=== PATIENT | female | born 1965 | race Two or more races ===

== ENCOUNTER 2020-07-21 14:48 | Inpatient (IN) | payer OTHER ==
[2020-07-21] VITALS (8 sets, daily range): BP systolic 121–153; BP diastolic 72–100
[~2020-07-21] VITALS: Ht 160 cm; Wt 59.0 kg
--- NOTE | 2020-07-21 15:27 | NUR ---
came to er complaints of right lower quadarnt pain x 3 days denies any nausea or vomiting
--- NOTE | 2020-07-21 15:28 | Emergency Room Report ---
History of Present Illness General Chief Complaint: Abdominal Pain Source: Patient (Melissa Solano) Present Illness HPI 54-year-old female presents to the emergency department complaining of 6 out of 10 in severity right-sided abdominal pain and tenderness especially under the right lower ribs. Patient reports symptoms x3 days. Patient states that she has had similar symptoms in the past that seem to come and go. She reports her pain is worse after eating. She reports sometimes radiates up the epigastric area and to her throat. She denies taking anti-inflammatories such as Motrin, ibuprofen or Advil. Patient reports history of high blood pressure and takes metoprolol. She is also taking Coumadin daily as she had heart surgery performed a year ago and has been on it ever since. She denies bloating. She reports some nausea and one episode of vomiting. Patient denies blood in the vomitus. Patient denies bloody stools or black tarry stools. She denies constipation or diarrhea. She denies cough, hemoptysis,fevers or chills. She denies headache, body aches, chest pain, or shortness of breath. She reports feeling rapid heart beat and elevated BP when experiencing pain. She denies dysuria, hematuria, urinary frequency or urgency. Denies tobacco use. (Melissa Solano) Allergies: Coded Allergies: No Known Allergies (Unverified , 07/21/20) COVID-19 Screening Contact w/high risk pt: No Experienced COVID-19 symptoms?: No COVID-19 Testing performed MEASUREMENT AND VERIFICATION ENGINEER: No (Melissa Solano) Patient History Past Medical History: see triage record Past Surgical History: none Pertinent Family History: none Reviewed Nursing Documentation: PMH: Agreed; PSxH: Agreed (Melissa Solano) Past Medical History: see triage record, other - Cardiac arrhythmia, breast cancer, aortic stenosis Past Surgical History: other - Breast cancer right, aortic valvuloplasty (Jose Alvarado MD) Nursing Documentation-PMH Hx Hypertension: Yes (Melissa Solano) Review of Systems All Other Systems: negative except mentioned in HPI (Melissa Solano) Physical Exam Vital Signs Date Time Temp Pulse Resp B/P (MAP) Pulse Ox O2 Delivery O2 Flow Rate FiO2 07/21/20 15:16 98.2 90 20 150/100 (117) 98 Sp02 EP Interpretation: reviewed, normal General Appearance: no apparent distress, alert, GCS 15, non-toxic, mild distress - grimmacing and holding right upper abdomen. Head: normocephalic, atraumatic Eyes: bilateral eye normal inspection, bilateral eye PERRL ENT: hearing grossly normal, normal voice, other - JVD Neck: full range of motion Respiratory: chest non-tender, lungs clear, normal breath sounds, no wheezing, speaking full sentences Cardiovascular #1: no edema, tachycardia, extra beats Gastrointestinal: normal bowel sounds, soft, non-distended, no guarding, no hernia, tenderness - EPigastric, RUQ and mild RLQ TTP. no rebound Rectal: deferred Genitourinary: normal inspection, no CVA tenderness Musculoskeletal: normal range of motion, gait/station normal, non-tender Neurologic: alert, motor strength/tone normal, oriented x3, sensory intact, responsive, speech normal Psychiatric: judgement/insight normal Skin: no rash, normal color (Melissa Solano) Procedures Critical Care Time Critical Care Time Total Critical Care Time: 35 min bedside evaluation and treatment excludes pr ocedures (EKG). Reason for critical care: Atrial flutter, congestive heart failure, consultation with radiology aide, discussion of treatment plan with patient, diltiazem bolus and diltiazem IV, repeat evaluations Possible complications: hypotension, hypertension, NE, shock, arrhythmias, metabolic acidosis, end organ damage, respiratory failure. Interventions: Full evaluation, consultation with radiology aide, review of past history, repeat evaluations, treatment of atrial flutter and congestive heart failure Course: Patient presented with right upper quadrant pain and a strange feeling in her chest. Evaluation by the PA focused on abdominal symptomatology. The PA presented the fact that the patient had an irregular heartbeat. I evaluated the patient and directed work-up including EKG, INR and chest x-ray. EKG revealed atrial flutter with variable block. Discussion with potential admitting physician led to discussion with the radiology aide to discuss treatment plan. I suggested medication for cardioversion however he requested Cardizem drip and admission for further evaluation of possible clot and stroke risk. Patient initially was refusing admission to the hospital. Long discussion with patient regarding the need for admission and treatment of the atrial flutter. Education of atrial flutter flutter with the patient. Observation of patient after administration of Cardizem bolus and drip revealed improvement. Patient admitt ed to ICU. Consultations: nursing staff, admitting physician, admitting radiology aide, patient, co-treatment with physicians academic support assistant, covering emergency physician Performed by: Dr. Alvarado Tolerated well condition = serious (Jose Alvarado MD) Medical Decision Making PA Attestation Dr. Alvarado Is my supervising Physician whom patient management has been discussed with. (Melissa Solano) Diagnostic Impression: Primary Impression: Atrial flutter by electrocardiogram Additional Impressions: Acute exacerbation of CHF (congestive heart failure) Qualified Codes: I50.9 - Heart failure, unspecified Abdominal pain Qualified Codes: R10.11 - Right upper quadrant pain ER Course 54-year-old female presents to the emergency department complaining of 6 out of 10 in severity right-sided abdominal pain and tenderness especially under the right lower ribs. Patient reports symptoms x3 days. Patient states that she has had similar symptoms in the past that seem to come and go. She reports her pain is worse after eating. She reports sometimes radiates up the epigastric area and to her throat. She denies taking anti-inflammatories such as Motrin, ibuprofen or Advil. Patient reports history of high blood pressure and takes metoprolol. She is also taking Coumadin daily as she had heart surgery performed a year ago and has been on it ever since. She denies bloating. She reports some nausea and one episode of vomiting. Patient denies blood in the vomitus. Patient denies bloody stools or black tarry stools. She denies constipation or diarrhea. She denies cough, hemoptysis,fevers or chills. She denies headache, body aches, chest pain, or shortness of breath. She reports feeling rapid heart beat and elevated BP when experiencing pain. She denies dysuria, hematuria, urinary frequency or urgency. Denies tobacco use. Ddx considered but are not limited to Diverticulitis, acute appendicitis, diarrhea,UC, PUD, GE, pancreatitis, gallstones, NE, PNA, CHF, cardiac arrhythmia. Vital signs: are WNL, pt. is afebrile H&PE are most consistent with non-toxic in appearance, pt. POC is lying on her right side. ORDERS: -CBC, CMP, LIPASE: Unremarkable -UA: Hematuria - Troponin: 0.11 - EKG- A-flutter 113bpm - INR: 2.8 -Abdominal US: unremarkable -CT abd & Pelvis w/o contrast: unremarkable for acute abdomen, noted bibasilar interstitial edema. -- see official report for details. ED INTERVENTIONS: -Pepcid 20mg IV - Lidocaine & Mylanta PO-- pt. reports some reduction in her symptoms. - Cardizem 15mg push and Drip IV - Nitroglycerin - ASA 162 I feel this is a highly complex case requiring supervising physician collaboration and extensive working including EKG/Rhythm strip, Xray/CT/US, Blood/urine lab work, repeat exams while in ED, and administration of IV rate control medications, admission to hospital, and cardiology consultation. Pt. presentation to the ED mandated critical care. Pt. required immediate intervention to assess the risks and attempt to prevent cardiovascular compromise that could lead to . Critical care time is 45 minutes excluding any reportable procedure. Critical care time included initial evaluation, multiple reevaluations, looking at old charts, interpreting laboratory and diagnostic data, discussing case with patient, supervising physician, consultants, and charting. DISPOSITION: at this time pt. will be admitted to Dr. Sow for A-Flutter and CHF exacerbation. Dr. Sow agreed to admit the pt. and to continue pt. care management. Labs Test 07/21/20 15:18 07/21/20 15:30 Urine Color Yellow Urine Appearance Clear Urine pH 6 (4.5-8.0) Urine Specific [place] 1.020 (1.005-1.035) Urine Protein 3+ (NEGATIVE) Urine Glucose (UA) Negative (NEGATIVE) Urine Ketones Negative (NEGATIVE) Urine Blood 5+ (NEGATIVE) Urine Nitrite Negative (NEGATIVE) Urine Bilirubin Negative (NEGATIVE) Urine Urobilinogen Normal MG/DL (0.0-1.0) Urine Leukocyte Esterase Negative (NEGATIVE) Urine RBC 30-40 /HPF (0 - 2) Urine WBC 0-2 /HPF (0 - 2) Urine Squamous Epithelial Cells Few /LPF (NONE/OCC) Urine Bacteria Few /HPF (NONE) White Blood Count 7.3 K/UL (4.8-10.8) Red Blood Count 4.39 M/UL (4.20-5.40) Hemoglobin 13.3 G/DL (12.0-16.0) Hematocrit 39.9 % (37.0-47.0) Mean Corpuscular Volume 91 FL (80-99) Mean Corpuscular Hemoglobin 30.3 PG (27.0-31.0) Mean Corpuscular Hemoglobin Concent 33.4 G/DL (32.0-36.0) Red Cell Distribution Width 15.0 % (11.6-14.8) Platelet Count 217 K/UL (150-450) Mean Platelet Volume 8.7 FL (6.5-10.1) Neutrophils (%) (Auto) 68.1 % (45.0-75.0) Lymphocytes (%) (Auto) 23.8 % (20.0-45.0) Monocytes (%) (Auto) 5.9 % (1.0-10.0) Eosinophils (%) (Auto) 1.5 % (0.0-3.0) Basophils (%) (Auto) 0.7 % (0.0-2.0) Prothrombin Time 28.3 SEC (9.30-11.50) Prothromb Time International Ratio 2.8 (0.9-1.1) Sodium Level 142 MMOL/L (136-145) Potassium Level 4.1 MMOL/L (3.5-5.1) Chloride Level 107 MMOL/L (98-107) Carbon Dioxide Level 25 MMOL/L (21-32) Anion Gap 10 mmol/L (5-15) Blood Urea Nitrogen 19 mg/dL (7-18) Creatinine 0.9 MG/DL (0.55-1.30) Estimat Glomerular Filtration Rate > 60 mL/min (>60) Glucose Level 120 MG/DL (74-106) Calcium Level 8.9 MG/DL (8.5-10.1) Total Bilirubin 0.4 MG/DL (0.2-1.0) Aspartate Amino Transf (AST/SGOT) 29 U/L (15-37) Alanine Aminotransferase (ALT/SGPT) 28 U/L (12-78) Alkaline Phosphatase 124 U/L (46-116) Troponin I 0.110 ng/mL (0.000-0.056) Total Protein 6.8 G/DL (6.4-8.2) Albumin 3.5 G/DL (3.4-5.0) Globulin 3.3 g/dL Albumin/Globulin Ratio 1.1 (1.0-2.7) Lipase 189 U/L (73-393) (Melissa Solano) ER Course Please see above note. Patient with a history of Valvuloplasty in 2018. This was performed at [facility]. 6 months ago she underwent cardioversion which was unsuccessful. Most the time however she is in sinus rhythm. She is diligent about taking warfarin. In the past when she has right upper quadrant pain this is associated with arrhythmia and possibly congestive heart failure. Irregularly irregular heart rate. Decreased breath sounds bilaterally. Cardiac heave without diastolic murmur. JVD. Right upper quadrant tenderness and hepatojugular reflux. Underlying JVD with fraga A waves. Expanded work up. EKG atrial flutter variable block. No acute injury. Chest x-ray with congestive heart failure, cardiomegaly. Elevated troponin treated with aspirin. Discussion with Dr. Sow for cardiology consultation. Discussed with Dr. Babb 1830 Requests cardiphuong drip. improved on cardiazem. Discussed dx and treatment. (Patient transiently wanted to go home but convinced to stay.) Please see critical care note. Patient admitted to ICU. There are no beds at this time. Patient was discussed with covering emergency physician. (Jose Alvarado MD) EKG Diagnostic Results Troponin ordered: Yes When was troponin ordered?: Jul 21, 2020 EKG Time: 18:09 Rate: tachycardiac Rhythm: other - A-Flutter ST Segments: no acute changes ASA given to the pt in ED: Yes PA Scribe Text This Interpretation was scribed by SOCO Solano. (Melissa Solano) Troponin ordered: Yes Rate: tachycardiac ASA given to the pt in ED: Yes (Jose Alvarado MD) Rhythm Strip Diag. Results EP Interpretation: yes Rhythm: no PVC's, other - A flutter with variable block variable rate - tachy (Jose Alvarado MD) Chest X-Ray Diagnostic Results Chest X-Ray Diagnostic Results : Chest X-Ray Ordered: Yes # of Views/Limited/Complete: 1 View Indication: Chest Pain EP Interpretation: Yes PA Xray: Interpretation reviewed, by supervising MD, and agrees with findings. Interpretation: no consolidation, no effusion, no pneumothorax, other - Cardiomegaly and increased interstitial markings bilaterally. Impression: Other - abnormal Electronically Signed by: Melissa Solano PA-C (Melissa Solano) Chest X-Ray Diagnostic Results : Chest X-Ray Ordered: Yes # of Views/Limited/Complete: 1 View Indication: Other EP Interpretation: Yes Interpretation: no effusion, no pneumothorax, other - Congestive heart failure and cardiomegaly Impression: Other Electronically Signed by: Electronically signed by Jose Alvarado MD (Jose Alvarado MD) CT/MRI/US Diagnostic Results CT/MRI/US Diagnostic Results #1: Imaging Test Ordered: Abdominal ultrasound Impression " Impression: Negative for gallstones or dilated bile ducts or other significant abnormality ." --Per official radiology report- Please see report for specific details. CT/MRI/US Diagnostic Results #2: Imaging Test Ordered: CT abdomen and pelvis without contrast. Impression " Impression: Limited assessment of the GI tract, due to lack of enteric contrast administration. No definite acute abdominal or pelvic abnormality. Marked cardiomegaly. Extensive pulmonary basilar interstitial septal thickening and irregular focal opacities bilaterally. Suspect on the basis of pulmonary edema, given the presence of significant cardiomegaly. 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 (Melissa Solano) Last Vital Signs Date Time Temp Pulse Resp B/P (MAP) Pulse Ox O2 Delivery O2 Flow Rate FiO2 07/21/20 15:24 98.2 20 150/100 98 07/21/20 15:24 90 (Melissa Solano) Last Vital Signs Date Time Temp Pulse Resp B/P (MAP) Pulse Ox O2 Delivery O2 Flow Rate FiO2 07/22/20 00:12 98.2 70 18 128/73 99 Room Air Status: improved (Jose Alvarado MD) Disposition: ADMITTED INPATIENT Condition: Serious Signed Out To: Dr. Alvarado (Melissa Solano) Referrals: [facility],REFERRING (PCP) Melissa Solano Jul 21, 2020 15:28 Jose Alvarado MD Jul 21, 2020 18:51
--- NOTE | 2020-07-21 15:48 | NUR ---
ultrasound at bedside
[2020-07-21 16:05] LABS: APPEARANCE,URINE CLEAR; BILIRUBIN, URINE NEGATIVE (NEGATIVE); COLOR,URINE YELLOW; GLUCOSE, URINE (UA) NEGATIVE (NEGATIVE); KETONES,URINE NEGATIVE (NEGATIVE); LEUKOCYTE ESTERASE ,URINE NEGATIVE (NEGATIVE); NITRITE,URINE NEGATIVE (NEGATIVE); PH,URINE 6 (4.5-8.0); PROTEIN,URINE 3+ (NEGATIVE); UROBILINOGEN,URINE NORMAL MG/DL (0.0-1.0)
[2020-07-21 16:05] LABS: BASOPHILS % (AUTO) 0.7 % (0.0-2.0); EOSINOPHILS % (AUTO) 1.5 % (0.0-3.0); HEMATOCRIT 39.9 % (37.0-47.0); HEMOGLOBIN 13.3 G/DL (12.0-16.0); LYMPHOCYTES % (AUTO) 23.8 % (20.0-45.0); MEAN CORPUSCULAR VOLUME 91 FL (80-99); MONOCYTES % (AUTO) 5.9 % (1.0-10.0); NEUTROPHILS % (AUTO) 68.1 % (45.0-75.0); PLATELET COUNT 217 K/UL (150-450); RED BLOOD COUNT 4.39 M/UL (4.20-5.40); WHITE BLOOD COUNT 7.3 K/UL (4.8-10.8)
[2020-07-21 16:15] LABS: ANION GAP 10 mmol/L (5-15); BLOOD UREA NITROGEN 19 mg/dL (7-18); CALCIUM 8.9 MG/DL (8.5-10.1); CARBON DIOXIDE 25 MMOL/L (21-32); CHLORIDE 107 MMOL/L (98-107); CREATININE 0.9 MG/DL (0.55-1.30); POTASSIUM 4.1 MMOL/L (3.5-5.1); SODIUM 142 MMOL/L (136-145)
[2020-07-21] MEDS ORDERED: Lidocaine 2% Visc 15ml soln ORAL ONE (16:15)
[2020-07-21] MEDS ORDERED: Mylanta II UD 30ml ORAL ONE (16:15)
[2020-07-21 16:19] LABS: ALANINE AMINOTRANSFERASE 28 U/L (12-78); ALBUMIN 3.5 G/DL (3.4-5.0); ALBUMIN/GLOBULIN RATIO 1.1 (1.0-2.7); ALKALINE PHOSPHATASE 124 U/L (46-116); ASPARTATE AMINO TRANSFERASE 29 U/L (15-37); BILIRUBIN,TOTAL 0.4 MG/DL (0.2-1.0)
--- NOTE | 2020-07-21 17:14 | Diagnostic Imaging Report ---
Indication: Right lower quadrant pain for 3 days Technique: Spiral acquisitions obtained through the abdomen and pelvis. No oral contrast utilized, per emergency room physician request No IV contrast utilized, per referring physician request.. Multiplanar reconstructions were generated. Total dose length product 301 mGycm. CTDIvol(s) 5 mGy. Dose reduction achieved using automated exposure control Comparison: None Findings: Lack of enteric contrast limits assessment of the GI tract. There are colonic diverticula. No evidence of diverticulitis. The appendix is normal. No small bowel distention. No free or loculated intraperitoneal gas or fluid is evident. The distal esophagus, stomach, duodenum are unremarkable. Lack of IV contrast limits assessment of the solid organs. The liver, gallbladder, bile ducts, pancreas, spleen, adrenals, kidneys are all unremarkable. No renal or ureteral calculi, hydronephrosis, or hydroureter. No pelvic mass or adenopathy. Unremarkable bladder. The included lung bases demonstrate extensive interlobular interstitial septal thickening, as well as irregular focal opacities. The heart is markedly enlarged. 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 This appears normal anteriorly, however. Impression: Limited assessment of the GI tract, due to lack of enteric contrast administration No definite acute abdominal or pelvic abnormality Marked cardiomegaly Extensive pulmonary basilar interstitial septal thickening and irregular focal opacities bilaterally. Suspect on the basis of pulmonary edema, given the presence of significant cardiomegaly. 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
--- NOTE | 2020-07-21 17:23 | Diagnostic Imaging Report ---
Indication: Abdominal pain Technique: Eng-scale and duplex images of the upper abdomen were obtained Comparison: No comparison sonogram. Reference made to subsequently CT scan Findings: Gallbladder is unremarkable, without stones, wall thickening, nor pericholecystic fluid. Sonographic Gómez's sign is negative. Common bile duct measures 2 mm in diameter. No intrahepatic biliary ductal dilatation. Liver demonstrates normal echogenicity, no focal abnormality. Portal vein and hepatic veins are patent. Pancreas is unremarkable. Spleen is unremarkable. Left kidney measures 10.1 cm in length. Right kidney measures 9.9 cm length. Both kidneys demonstrate normal echogenicity. There is no hydronephrosis. Echogenic foci within the left renal sinus are probably artifactual, as no calculi are demonstrated on recent CT scan. Unremarkable inferior vena cava. Non-aneurysmal abdominal aorta . Impression: Negative for gallstones or dilated bile ducts or other significant abnormality
[2020-07-21 18:27] LABS: INR 2.8 (0.9-1.1)
[2020-07-21] MEDS ORDERED: dilTIAZem Premix 125mg/125ml 125 ML IVPB ONE (18:45)
[2020-07-21] MEDS ORDERED: dilTIAZem HCl 25mg/5ml Inj IVP ONE (18:45)
[2020-07-21] MEDS ORDERED: Aspirin Baby 81mg ORAL ONE (18:45)
[2020-07-21] MEDS ORDERED: Nitroglycerin 2% oint pkt TOPIC ONE (18:45)
--- NOTE | 2020-07-21 19:14 | NUR ---
HAND-OFF: Report given to Debby MADISON.
--- NOTE | 2020-07-21 19:15 | NUR ---
ED Nurse Note: pt laying in bed with eyes open. AAOx4, breathing even and unlabored. Pt denies chest pain, denies abdominal pain. Commode provided. Fluids offered and accepted. Heart rhythm currently atrial flutter HR 80s on cardizem drip.
--- NOTE | 2020-07-21 19:54 | NUR ---
ED Nurse Note: Per EDMD titrate cardizem drip to 5mg per hour. Drip titrated up as ordered.
--- NOTE | 2020-07-21 21:08 | NUR ---
ED Nurse Note: pt laying in bed, AAOx4. No complaints from pt at the moment, fluids and sandwhich provided and accepted. Pt aware waiting for bed upstairs.
[2020-07-21] MEDS ORDERED: WARFARIN SODIUM5 MG ORAL (21:20)
[2020-07-21] MEDS ORDERED: WARFARIN SODIU7.5 MG ORAL (21:20)
[2020-07-21] MEDS ORDERED: METOPROLOL TART50 M1 ORAL (21:21)
[2020-07-21] MEDS ORDERED: Acetaminophen 500mg (ES) tab ORAL ONE (21:27)
--- NOTE | 2020-07-21 22:22 | NUR ---
ED Nurse Note: Pt resting in bed, no complaints from pt at the moment. Warm blankets and pillows provided.
[2020-07-22] VITALS (12 sets, daily range): BP systolic 114–142; BP diastolic 73–90
--- NOTE | 2020-07-22 00:40 | NUR ---
ED Nurse Note: Called MD Sow for admission orders. Per MD order 2DEcho in AM, BNP CBC Mag Phosphorus daily, Heparin drip pharmacy to dose. Hold home medications for now. MD aware pt on cardizem drip at 5mg/hr and said to keep at current rate. stated he will contact cardiology consult. MD aware no ICU beds at the moment, pt still in ED.
[2020-07-22] MEDS ORDERED: Heparin1,000 units/500ml Premix(Conc:2 units/ml) IV ONE (00:45)
--- NOTE | 2020-07-22 00:54 | NUR ---
ED Nurse Note: Called Junito Lima aware of heparin pharmacy to dose order.
--- NOTE | 2020-07-22 01:00 | NUR ---
ED Nurse Note: PTT sent to lab
--- NOTE | 2020-07-22 01:11 | NUR ---
ED Nurse Note: Jyoti from [facility] called. Said need for PTT now, repeat PTT in 6 hours.
[2020-07-22] MEDS ORDERED: HYDROcodone/Acetamin 5/325 tab ORAL ONE ×2 (01:15→07:15)
[2020-07-22] MEDS ORDERED: Heparin 25,000u/D5W 500ml 500 ML IV SCH ×4 (01:15→17:45)
[2020-07-22] MEDS ORDERED: HYDROcodone/Acetamin 5/325 tab ONE ×2 (01:18→07:02)
[2020-07-22] MEDS ORDERED: dilTIAZem Premix 125mg/125ml 125 ML IVPB ONE (01:45)
--- NOTE | 2020-07-22 02:11 | NUR ---
ED Nurse Note: [facility] called for striker bed.
--- NOTE | 2020-07-22 02:25 | NUR ---
ED Nurse Note: [facility] called, spke with Derick. Ptt 33 reported, Per Derick keep current rate. Repeat ptt at 0800.
--- NOTE | 2020-07-22 02:58 | NUR ---
ED Nurse Note: pt laying in bed, no complaints from pt at the moment. AAOx4, vital signs stable.
--- NOTE | 2020-07-22 04:16 | NUR ---
ED Nurse Note: AM lab collected and sent to lab
[2020-07-22 04:27] LABS: BASOPHILS % (AUTO) 0.7 % (0.0-2.0); EOSINOPHILS % (AUTO) 1.3 % (0.0-3.0); HEMATOCRIT 38.8 % (37.0-47.0); HEMOGLOBIN 12.3 G/DL (12.0-16.0); LYMPHOCYTES % (AUTO) 19.7 % (20.0-45.0); MEAN CORPUSCULAR VOLUME 91 FL (80-99); MONOCYTES % (AUTO) 6.8 % (1.0-10.0); NEUTROPHILS % (AUTO) 71.5 % (45.0-75.0); PLATELET COUNT 185 K/UL (150-450); RED BLOOD COUNT 4.27 M/UL (4.20-5.40); RED CELL DISTRIBUTION WIDTH 14.5 % (11.6-14.8); WHITE BLOOD COUNT 8.8 K/UL (4.8-10.8)
[2020-07-22 04:44] LABS: ANION GAP 7 mmol/L (5-15); BLOOD UREA NITROGEN 15 mg/dL (7-18); CALCIUM 8.1 MG/DL (8.5-10.1); CARBON DIOXIDE 27 MMOL/L (21-32); CHLORIDE 106 MMOL/L (98-107); CREATININE 0.7 MG/DL (0.55-1.30); POTASSIUM 3.3 MMOL/L (3.5-5.1); SODIUM 140 MMOL/L (136-145)
[2020-07-22 04:56] LABS: PHOSPHORUS 3.4 MG/DL (2.5-4.9)
--- NOTE | 2020-07-22 05:11 | NUR ---
ED Nurse Note: pt laying in bed with eyes closed, arousable when name is called. No complaints from pt at the moment. VSS.
--- NOTE | 2020-07-22 06:37 | NUR ---
ED Nurse Note: per EDMD stop cardizem drip, will change to PO cardizem. EDMD said will text MD Sow to notify of change.
[2020-07-22] MEDS ORDERED: dilTIAZem HCl 30mg tab ORAL ONE (06:45)
--- NOTE | 2020-07-22 06:59 | NUR ---
ED Nurse Note: Per EDMD give [place] 5/325 once PO stat.
--- NOTE | 2020-07-22 07:29 | NUR ---
HAND-OFF: Report given to LOS Ortiz.
--- NOTE | 2020-07-22 07:30 | NUR ---
ED Nurse Note: Received report from Debby MADISON. Pt AAOX4, verbally responsive. No SOB, on room air. On Heparin drip, tolerating well. Dudley provided for comfort. All needs attended. Will cont to monitor.
--- NOTE | 2020-07-22 08:08 | NUR ---
ED Nurse Note: PTT sent to lab.
--- NOTE | 2020-07-22 09:18 | NUR ---
ED Nurse Note: 2decho at bedside.
--- NOTE | 2020-07-22 09:40 | NUR ---
REPORT GIVEN TO NELL RN AT TELE . PATIENT WILL BE TRANSFERD TO ROOM 221-1 VIA ACLS PROTOCOL
--- NOTE | 2020-07-22 09:42 | History & Physical ---
History of Present Illness General Reason for Hospitalization: Abdominal Pain Present Illness HPI 54-year-old female with past medical history of arrhythmia, breast cancer, and aortic stenosis, who presented to the ED complaining of 6/10 in severity right- sided abdominal pain and tenderness especially on the right lower ribs x3 days. Patient states that she had similar symptoms in the past that seem to come and go. She reports her pain is worse with after eating. She reports sometimes the pain radiates up to epigastric area and to her throat. She takes Coumadin daily as she had heart surgery performed a year ago and she has been on it. She denies cough, hemoptysis, fevers, chills, headache, body aches, chest pain, or shortness of breath. She does report palpitations. Her initial CBC, CMP, and lipase were unremarkable. Her urinalysis was remarkable for hematuria. Her troponin was 0.11. Her EKG revealed atrial flutter. Her INR 2.8. Her abdominal ultrasound was unremarkable. Her CT of abdomen and pelvis without contrast was unremarkable for acute abdomen. However was noted that she had bibasilar interstitial edema. She was given Pepcid, lidocaine and Mylanta, Cardizem, nitroglycerin, and aspirin in the ER and was admitted to the hospital for further management and observation. PAST MEDICAL HISTORY: CHF, arrhythmia, history of valvuloplasty in 2018, cardioversion 6 months ago which was unsuccessful MEDICATIONS: Metoprolol, warfarin ALLERGIES: No known allergies FAMILY HISTORY: Unknown PERSONAL/SOCIAL HISTORY: Lives at home REVIEW OF SYSTEMS: Negative except mentioned in HPI Allergies: Coded Allergies: No Known Allergies (Unverified , 07/21/20) COVID-19 Screening Contact w/high risk pt: No Experienced COVID-19 symptoms?: No Medication History Scheduled Metoprolol Tartrate* (Metoprolol Tartrate*), 50 MG ORAL EVERY 12 HOURS, (Reported) Warfarin Sod* (Warfarin Sod*), 5 MG ORAL DAILY Sun, Tues, Thurs, Fri, Sat, (Reported) Warfarin Sod* (Warfarin Sod*), 7.5 MG ORAL Daily Monday and Monday, (Reported) Patient History Healthcare decision maker Resuscitation status Advanced Directive on File Review of Systems Review of Symptoms General ROS: no weight loss or fever Psychological ROS: no depression or mood changes, no memory loss Ophthalmic ROS: no visual changes or eye irritation ENT ROS: no nasal congestion, hearing loss, dizziness Allergy and Immunology ROS: no allergic symptoms or urticaria Hematological and Lymphatic ROS: no swollen glands, unusual bleeding or bruising Endocrine ROS: no polyuria, polydipsia, weight changes, temperature intolerance Respiratory ROS: no cough, shortness of breath, or wheezing Cardiovascular ROS: no chest pain or dyspnea on exertion Gastrointestinal ROS: + abd pain Musculoskeletal ROS: no myalgias or arthralgias Neurological ROS: no TIA or stroke symptoms Dermatological ROS: no new or changing skin lesions, rashes or pruritis Physical Exam Physical Exam General appearance: alert, cooperative, no distress, appears stated age Head: Normocephalic, without obvious abnormality, atraumatic Eyes: conjunctivae/corneas clear. PERRL, EOM's intact. Fundi benign Throat: Lips, mucosa, and tongue normal. Teeth and gums normal Neck: supple, symmetrical, trachea midline, no adenopathy, thyroid: not enlarged, symmetric, no tenderness/mass/nodules, no carotid bruit and no JVD Lungs: clear to auscultation bilaterally Heart: tachycardic S1, S2 normal, no murmur, click, rub or gallop Abdomen: soft, non-tender. Bowel sounds normal. No masses, no organomegaly Extremities: extremities normal, atraumatic, no cyanosis or edema Pulses: 2+ and symmetric Skin: Skin color, texture, turgor normal. No rashes or lesions Neurologic: Grossly normal Last 24 Hour Vital Signs Date Time Temp Pulse Resp B/P (MAP) Pulse Ox O2 Delivery O2 Flow Rate FiO2 07/22/20 09:16 98.2 07/22/20 07:30 98.2 74 17 114/77 98 Room Air 07/22/20 06:43 68 129/76 07/22/20 06:26 98.2 68 16 129/76 100 Room Air 07/22/20 05:11 98.2 69 16 127/78 100 Room Air 07/22/20 04:10 98.2 68 16 124/76 100 Room Air 07/22/20 03:15 98.2 71 16 133/86 100 Room Air 07/22/20 02:02 98.2 69 18 142/90 99 Room Air 07/22/20 01:49 98.2 07/22/20 01:10 98.2 68 18 130/75 99 Room Air 07/22/20 00:12 98.2 70 18 128/73 99 Room Air 07/21/20 22:22 98.2 68 18 129/72 99 Room Air 07/21/20 21:07 98.2 73 18 122/98 99 Room Air 07/21/20 20:34 98.2 73 18 139/90 99 Room Air 07/21/20 20:01 98.2 81 18 146/92 99 Room Air 07/21/20 19:54 98.2 83 18 153/87 99 Room Air 07/21/20 19:15 98.2 81 18 150/86 99 Room Air 07/21/20 18:50 132/88 07/21/20 18:49 115 132/89 07/21/20 17:41 98.2 76 18 142/92 99 Room Air 07/21/20 15:24 98.2 20 150/100 98 07/21/20 15:24 90 20 07/21/20 15:16 98.2 90 20 150/100 (117) 98 Intake and Output 07/21/20 07/22/20 19:00 07:00 Intake Total 0 ml 320 ml Balance 0 ml 320 ml Intake Oral 0 ml 320 ml # Voids 6 Laboratory Tests Test 07/21/20 15:18 07/21/20 15:30 07/22/20 00:35 07/22/20 01:00 Urine Color Yellow Urine Appearance Clear Urine pH 6 (4.5-8.0) Urine Specific [place] 1.020 (1.005-1.035) Urine Protein 3+ (NEGATIVE) H Urine Glucose (UA) Negative (NEGATIVE) Urine Ketones Negative (NEGATIVE) Urine Blood 5+ (NEGATIVE) H Urine Nitrite Negative (NEGATIVE) Urine Bilirubin Negative (NEGATIVE) Urine Urobilinogen Normal MG/DL (0.0-1.0) Urine Leukocyte Esterase Negative (NEGATIVE) Urine RBC 30-40 /HPF (0 - 2) H Urine WBC 0-2 /HPF (0 - 2) Urine Squamous Epithelial Cells Few /LPF (NONE/OCC) Urine Bacteria Few /HPF (NONE) White Blood Count 7.3 K/UL (4.8-10.8) Red Blood Count 4.39 M/UL (4.20-5.40) Hemoglobin 13.3 G/DL (12.0-16.0) Hematocrit 39.9 % (37.0-47.0) Mean Corpuscular Volume 91 FL (80-99) Mean Corpuscular Hemoglobin 30.3 PG (27.0-31.0) Mean Corpuscular Hemoglobin Concent 33.4 G/DL (32.0-36.0) Red Cell Distribution Width 15.0 % (11.6-14.8) H Platelet Count 217 K/UL (150-450) Mean Platelet Volume 8.7 FL (6.5-10.1) Neutrophils (%) (Auto) 68.1 % (45.0-75.0) Lymphocytes (%) (Auto) 23.8 % (20.0-45.0) Monocytes (%) (Auto) 5.9 % (1.0-10.0) Eosinophils (%) (Auto) 1.5 % (0.0-3.0) Basophils (%) (Auto) 0.7 % (0.0-2.0) Prothrombin Time 28.3 SEC (9.30-11.50) H Prothromb Time International Ratio 2.8 (0.9-1.1) H Sodium Level 142 MMOL/L (136-145) Potassium Level 4.1 MMOL/L (3.5-5.1) Chloride Level 107 MMOL/L (98-107) Carbon Dioxide Level 25 MMOL/L (21-32) Anion Gap 10 mmol/L (5-15) Blood Urea Nitrogen 19 mg/dL (7-18) H Creatinine 0.9 MG/DL (0.55-1.30) Estimat Glomerular Filtration Rate > 60 mL/min (>60) Glucose Level 120 MG/DL (74-106) H Calcium Level 8.9 MG/DL (8.5-10.1) Total Bilirubin 0.4 MG/DL (0.2-1.0) Aspartate Amino Transf (AST/SGOT) 29 U/L (15-37) Alanine Aminotransferase (ALT/SGPT) 28 U/L (12-78) Alkaline Phosphatase 124 U/L (46-116) H Troponin I 0.110 ng/mL (0.000-0.056) 0.130 ng/mL (0.000-0.056) Total Protein 6.8 G/DL (6.4-8.2) Albumin 3.5 G/DL (3.4-5.0) Globulin 3.3 g/dL Albumin/Globulin Ratio 1.1 (1.0-2.7) Lipase 189 U/L (73-393) Activated Partial Thromboplast Time 33 SEC (23-33) Test 07/22/20 04:10 07/22/20 08:08 White Blood Count 8.8 K/UL (4.8-10.8) Red Blood Count 4.27 M/UL (4.20-5.40) Hemoglobin 12.3 G/DL (12.0-16.0) Hematocrit 38.8 % (37.0-47.0) Mean Corpuscular Volume 91 FL (80-99) Mean Corpuscular Hemoglobin 28.7 PG (27.0-31.0) Mean Corpuscular Hemoglobin Concent 31.6 G/DL (32.0-36.0) L Red Cell Distribution Width 14.5 % (11.6-14.8) Platelet Count 185 K/UL (150-450) Mean Platelet Volume 8.1 FL (6.5-10.1) Neutrophils (%) (Auto) 71.5 % (45.0-75.0) Lymphocytes (%) (Auto) 19.7 % (20.0-45.0) L Monocytes (%) (Auto) 6.8 % (1.0-10.0) Eosinophils (%) (Auto) 1.3 % (0.0-3.0) Basophils (%) (Auto) 0.7 % (0.0-2.0) Sodium Level 140 MMOL/L (136-145) Potassium Level 3.3 MMOL/L (3.5-5.1) L Chloride Level 106 MMOL/L (98-107) Carbon Dioxide Level 27 MMOL/L (21-32) Anion Gap 7 mmol/L (5-15) Blood Urea Nitrogen 15 mg/dL (7-18) Creatinine 0.7 MG/DL (0.55-1.30) Estimat Glomerular Filtration Rate > 60 mL/min (>60) Glucose Level 116 MG/DL (74-106) H Calcium Level 8.1 MG/DL (8.5-10.1) L Phosphorus Level 3.4 MG/DL (2.5-4.9) Magnesium Level 1.8 MG/DL (1.8-2.4) Pro-B-Type Natriuretic Peptide 3125 pg/mL (0-125) H Activated Partial Thromboplast Time > 150 SEC (23-33) *H Height (Feet): 5 Height (Inches): 3.00 Weight (Pounds): 130 Medications Current Medications Medications (Trade) Dose Ordered Sig/Damien Route PRN Reason Start Time Stop Time Status Last Admin Dose Admin Acetaminophen (Tylenol) 650 mg Q4H PRN ORAL Pain Scale (3-5) 07/22/20 05:45 08/21/20 05:44 Diltiazem HCl 125 ml @ 5 mls/hr ONCE ONCE IVPB 07/22/20 01:45 07/23/20 02:44 07/22/20 01:55 Heparin Sodium/ Dextrose 500 ml @ 15.331 mls/ hr ADJUST PER PROTOCOL IV 07/22/20 10:40 08/21/20 10:39 Ondansetron HCl (Zofran) 4 mg Q6H PRN IVP Nausea & Vomiting 07/22/20 05:45 08/21/20 05:44 07/22/20 06:50 Assessment/Plan Diagnosis [place] I: #Atrial flutter #MONY #NSTEMI #hisotory of aortic valve surgery #HTN #h/o breast cancer #hypokalemia - admit to tele - cardizem drip - meto 50 BID - switch to ral cardizem per cardiology - cardiology eval - echo - heparin drip - monitor lytes - replete lytes prn [facility] Hospital declaration I spent 70 minutes on this patient's case, and 35minutes was dedicated to cou nseling and/or care coordination. MIPS ([employer]-based Incentive Payment System) Applicable CPT: 75344, 27110 CHECK ALL THAT ARE MET: Measure #5 (CHF): All ages. Prescribe PRIMO/ARB upon discharge for patients with left ventricular systolic dysfunction. If not, the reason is clearly documented in the medical chart. Measure #8 (CHF): All ages. Prescribe a beta olegario upon discharge for patients with left ventricular systolic dysfunction. If not, the reason is clearly documented in the medical chart. Measure #47 Advance care plan or surrogate decision maker documented in the medical record. Measure #130 The provider has documented, updated, or reviewed the patients current medication list and has documented it in the patients note. Measure #374 (All): Send report to referring provider. Measure #407(Sepsis due to MSSA bacteremia): Age 18+ Patient treated with a beta-lactam antibiotic (Nafcillin, Oxacillin or Cefazolin) as definitive therapy. MEDICAL COMPLEXITY High complexity medical decision making (need 2/3 categories) Problem - need 4 points Acute/new problem with new plan for workup (4 points, 1 max) Acute/new problem without additional workup (3 points, 1 max) Unstable chronic problem actively being managed (2 point each, 2 max) Stable chronic problem actively being managed (1 point each, 2 max) Self-limited/transient process (constipation, muscle ache, etc) (1 point each, 2 max) Data - need 4 points Reviewed labs/imaging studies (1 points, 2 max) Independent review of imaging (EKG, xrays, etc) (2 points, 2 max) Discussed case with consult/other MD/RN (2 points, 2 max) High Risk - qualify if have one of the following: Severe exacerbation of acute problem, acute mental status change, IV narcotics, monitoring drug levels (vancomycin, INR, tacrolimus etc) Luis Fernando Sow M.D. Jul 22, 2020 09:42
--- NOTE | 2020-07-22 10:40 | NUR ---
NURSE NOTES: Patient admitted to rm 221-2. Transferred to bed. VS taken and recorded. Belongings accounted for. No skin issues noted. IV lines on right AC g20 and left wrist g20 intact and patent. A and O x 4, pleasant disposition. 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 Seen by Ovidio WAN. Seen by Dr Sow, orders noted and carried out. Oriented to room and call light. HOB elevated. Bed locked in low position. Call light within reach. Will continue plan of care.
--- NOTE | 2020-07-22 11:51 | Consultation ---
Consult Note Consult Note DATE OF CONSULTATION: 07/22/2020 CONSULTING PHYSICIAN: Ramon Myers MD. ATTENDING PHYSICIAN: Dr. Sow REASON FOR CONSULTATION: Extensive pulmonary basilar interstitial septal thickening and irregular focal opacities bilaterally HISTORY OF PRESENT ILLNESS: This is a 54-year-old female with past medical history of arrhythmia, breast cancer, and aortic stenosis, who presented to the ED complaining of 6/10 in severity right-sided abdominal pain and tenderness especially on the right lower ribs x3 days. Patient states that she had similar symptoms in the past that seem to come and go. She reports her pain is worse with after eating. She reports sometimes the pain radiates up to epigastric area and to her throat. She takes Coumadin daily as she had heart surgery performed a year ago and she has been on it. She denies cough, hemoptysis, fevers, chills, headache, body aches, chest pain, or shortness of breath. She does report palpitations. Her initial CBC, CMP, and lipase were unremarkable. Her urinalysis was remarkable for hematuria. Her troponin was 0.11. Her EKG revealed atrial flutter. Her INR 2.8. Her abdominal ultrasound was unremarkable. Her CT of abdomen and pelvis without contrast was unremarkable for acute abdomen. However was noted that she had bibasilar interstitial edema. She was given Pepcid, lidocaine and Mylanta, Cardizem, nitroglycerin, and aspirin in the ER and was admitted to the hospital for further management and observation. PAST MEDICAL HISTORY: CHF, arrhythmia, history of valvuloplasty in 2018, cardioversion 6 months ago which was unsuccessful MEDICATIONS: Metoprolol, warfarin ALLERGIES: No known allergies FAMILY HISTORY: Unknown PERSONAL/SOCIAL HISTORY: Lives at home REVIEW OF SYSTEMS: Negative except mentioned in HPI PHYSICAL EXAMINATION: VITAL SIGNS: Blood pressure 128/77, heart rate 77, respiratory rate 19, weight 59 kg, height 160. General: No apparent distress, alert, normal work of breathing on room air HEENT: Head exam reveals that the head is normocephalic, atraumatic without deformity or unusual swelling. Pupils are PERRLA. JVD, patient wearing facemask CHEST AND LUNGS: Decreased breath sounds noted CARDIOVASCULAR: Reveals normal S1, S2 without murmurs, rubs, or clicks. ABDOMEN: Right upper quadrant tenderness to palpation, no guarding, no rebound tenderness RECTAL: Deferred. MUSCULOSKELETAL: There is no tenderness to palpation. Range of motion is normal. NEUROLOGICAL: Alert and oriented x3 , nonfocal LABORATORY DATA: Laboratory testing shows grossly unremarkable. Chemistries show potassium 3.3, glucose 116, calcium 8.1, BNP 3125, troponin 0 0.13 Urinalysis shows 3+ protein, 5+ blood Coagulation panel shows PT 28.3, INR 2.8, APTT > 150 Assessment/Plan 1. Pulmonary basilar interstitial septal thickening and irregular focal opacities - Suspect pulmonary fibrosis. - Continue oxygen as needed - Recommend outpatient workup for this condition 2. DVT ppx The care for this patient was discussed with my supervising physician. Time spent for this case was approximately 31 minutes. Ovidio Sidhu Jul 22, 2020 11:51
--- NOTE | 2020-07-22 12:35 | Consultation ---
History of Present Illness General Date patient seen: Jul 22, 2020 Reason for Hospitalization: Abdominal Pain Present Illness HPI 54-year-old female presents to the emergency department complaining of 6 out of 10 in severity right-sided abdominal pain and tenderness especially under the right lower ribs. Patient reports symptoms x3 days. Patient states that she has had similar symptoms in the past that seem to come and go. She reports her pain is worse after eating. She reports sometimes radiates up the epigastric area and to her throat. She denies taking anti-inflammatories such as Motrin, ibuprofen or Advil. Patient reports history of high blood pressure and takes metoprolol. She is also taking Coumadin daily as she had heart surgery performed a year ago and has been on it ever since. She denies bloating. She reports some nausea and one episode of vomiting. Patient denies blood in the vomitus. Patient denies bloody stools or black tarry stools. She denies constipation or diarrhea. She denies cough, hemoptysis,fevers or chills. She denies headache, body aches, chest pain, or shortness of breath. She reports feeling rapid heart beat and elevated BP when experiencing pain. She denies dysuria, hematuria, urinary frequency or urgency. Denies tobacco use. surgery called to evaluate and assist with care trop elevated on gtt Allergies: Coded Allergies: No Known Allergies (Unverified , 07/21/20) COVID-19 Screening Contact w/high risk pt: No Experienced COVID-19 symptoms?: No Medication History Scheduled Metoprolol Tartrate* (Metoprolol Tartrate*), 50 MG ORAL EVERY 12 HOURS, (Reported) Warfarin Sod* (Warfarin Sod*), 5 MG ORAL DAILY Sun, , , Fri, Sat, (Reported) Warfarin Sod* (Warfarin Sod*), 7.5 MG ORAL Daily Monday and Monday, (Reported) Patient History History Provided By: Patient, Medical Record, PMD Healthcare decision maker Resuscitation status Advanced Directive on File Past Medical/Surgical History Past Medical/Surgical History: (1) Abdominal pain (2) Acute exacerbation of CHF (congestive heart failure) (3) Atrial flutter by electrocardiogram Review of Systems Review of Symptoms General ROS: no weight loss or fever Psychological ROS: no depression or mood changes, no memory loss Ophthalmic ROS: no visual changes or eye irritation ENT ROS: no nasal congestion, hearing loss, dizziness Allergy and Immunology ROS: no allergic symptoms or urticaria Hematological and Lymphatic ROS: no swollen glands, unusual bleeding or bruising Endocrine ROS: no polyuria, polydipsia, weight changes, temperature intolerance Respiratory ROS: no cough, shortness of breath, or wheezing Cardiovascular ROS: no chest pain or dyspnea on exertion Gastrointestinal ROS: ++ abdominal pain, bright red blood in stool. Musculoskeletal ROS: no myalgias or arthralgias Neurological ROS: no TIA or stroke symptoms Dermatological ROS: no new or changing skin lesions, rashes or pruritis Physical Exam Physical Exam General appearance: alert, cooperative, no distress, appears stated age Head: Normocephalic, without obvious abnormality, atraumatic Eyes: conjunctivae/corneas clear. PERRL, EOM's intact. Fundi benign Throat: Lips, mucosa, and tongue normal. Teeth and gums normal Neck: supple, symmetrical, trachea midline, no adenopathy, thyroid: not enlarged, symmetric, no tenderness/mass/nodules, no carotid bruit and no JVD Lungs: clear to auscultation bilaterally Heart: regular rate and rhythm, S1, S2 normal, no murmur, click, rub or gallop Abdomen: soft, non-tender. Bowel sounds normal. No masses, no organomegaly Extremities: extremities normal, atraumatic, no cyanosis or edema Pulses: 2+ and symmetric Skin: Skin color, texture, turgor normal. No rashes or lesions Neurologic: Grossly normal Last 24 Hour Vital Signs Date Time Temp Pulse Resp B/P (MAP) Pulse Ox O2 Delivery O2 Flow Rate FiO2 07/22/20 10:25 98.0 77 19 128/77 100 Room Air 07/22/20 09:42 98.0 86 16 130/80 98 Room Air 07/22/20 09:16 98.2 07/22/20 07:30 98.2 74 17 114/77 98 Room Air 07/22/20 06:43 68 129/76 07/22/20 06:26 98.2 68 16 129/76 100 Room Air 07/22/20 05:11 98.2 69 16 127/78 100 Room Air 07/22/20 04:10 98.2 68 16 124/76 100 Room Air 07/22/20 03:15 98.2 71 16 133/86 100 Room Air 07/22/20 02:02 98.2 69 18 142/90 99 Room Air 07/22/20 01:49 98.2 07/22/20 01:10 98.2 68 18 130/75 99 Room Air 07/22/20 00:12 98.2 70 18 128/73 99 Room Air 07/21/20 22:22 98.2 68 18 129/72 99 Room Air 07/21/20 21:07 98.2 73 18 122/98 99 Room Air 07/21/20 20:34 98.2 73 18 139/90 99 Room Air 07/21/20 20:01 98.2 81 18 146/92 99 Room Air 07/21/20 19:54 98.2 83 18 153/87 99 Room Air 07/21/20 19:15 98.2 81 18 150/86 99 Room Air 07/21/20 18:50 132/88 07/21/20 18:49 115 132/89 07/21/20 17:41 98.2 76 18 142/92 99 Room Air 07/21/20 15:24 98.2 20 150/100 98 07/21/20 15:24 90 20 07/21/20 15:16 98.2 90 20 150/100 (117) 98 Intake and Output 07/21/20 07/22/20 19:00 07:00 Intake Total 0 ml 320 ml Balance 0 ml 320 ml Intake Oral 0 ml 320 ml # Voids 6 Laboratory Tests Test 07/21/20 15:18 07/21/20 15:30 07/22/20 00:35 07/22/20 01:00 Urine Color Yellow Urine Appearance Clear Urine pH 6 (4.5-8.0) Urine Specific [place] 1.020 (1.005-1.035) Urine Protein 3+ (NEGATIVE) H Urine Glucose (UA) Negative (NEGATIVE) Urine Ketones Negative (NEGATIVE) Urine Blood 5+ (NEGATIVE) H Urine Nitrite Negative (NEGATIVE) Urine Bilirubin Negative (NEGATIVE) Urine Urobilinogen Normal MG/DL (0.0-1.0) Urine Leukocyte Esterase Negative (NEGATIVE) Urine RBC 30-40 /HPF (0 - 2) H Urine WBC 0-2 /HPF (0 - 2) Urine Squamous Epithelial Cells Few /LPF (NONE/OCC) Urine Bacteria Few /HPF (NONE) White Blood Count 7.3 K/UL (4.8-10.8) Red Blood Count 4.39 M/UL (4.20-5.40) Hemoglobin 13.3 G/DL (12.0-16.0) Hematocrit 39.9 % (37.0-47.0) Mean Corpuscular Volume 91 FL (80-99) Mean Corpuscular Hemoglobin 30.3 PG (27.0-31.0) Mean Corpuscular Hemoglobin Concent 33.4 G/DL (32.0-36.0) Red Cell Distribution Width 15.0 % (11.6-14.8) H Platelet Count 217 K/UL (150-450) Mean Platelet Volume 8.7 FL (6.5-10.1) Neutrophils (%) (Auto) 68.1 % (45.0-75.0) Lymphocytes (%) (Auto) 23.8 % (20.0-45.0) Monocytes (%) (Auto) 5.9 % (1.0-10.0) Eosinophils (%) (Auto) 1.5 % (0.0-3.0) Basophils (%) (Auto) 0.7 % (0.0-2.0) Prothrombin Time 28.3 SEC (9.30-11.50) H Prothromb Time International Ratio 2.8 (0.9-1.1) H Sodium Level 142 MMOL/L (136-145) Potassium Level 4.1 MMOL/L (3.5-5.1) Chloride Level 107 MMOL/L (98-107) Carbon Dioxide Level 25 MMOL/L (21-32) Anion Gap 10 mmol/L (5-15) Blood Urea Nitrogen 19 mg/dL (7-18) H Creatinine 0.9 MG/DL (0.55-1.30) Estimat Glomerular Filtration Rate > 60 mL/min (>60) Glucose Level 120 MG/DL (74-106) H Calcium Level 8.9 MG/DL (8.5-10.1) Total Bilirubin 0.4 MG/DL (0.2-1.0) Aspartate Amino Transf (AST/SGOT) 29 U/L (15-37) Alanine Aminotransferase (ALT/SGPT) 28 U/L (12-78) Alkaline Phosphatase 124 U/L (46-116) H Troponin I 0.110 ng/mL (0.000-0.056) 0.130 ng/mL (0.000-0.056) Total Protein 6.8 G/DL (6.4-8.2) Albumin 3.5 G/DL (3.4-5.0) Globulin 3.3 g/dL Albumin/Globulin Ratio 1.1 (1.0-2.7) Lipase 189 U/L (73-393) Activated Partial Thromboplast Time 33 SEC (23-33) Test 07/22/20 04:10 07/22/20 08:08 White Blood Count 8.8 K/UL (4.8-10.8) Red Blood Count 4.27 M/UL (4.20-5.40) Hemoglobin 12.3 G/DL (12.0-16.0) Hematocrit 38.8 % (37.0-47.0) Mean Corpuscular Volume 91 FL (80-99) Mean Corpuscular Hemoglobin 28.7 PG (27.0-31.0) Mean Corpuscular Hemoglobin Concent 31.6 G/DL (32.0-36.0) L Red Cell Distribution Width 14.5 % (11.6-14.8) Platelet Count 185 K/UL (150-450) Mean Platelet Volume 8.1 FL (6.5-10.1) Neutrophils (%) (Auto) 71.5 % (45.0-75.0) Lymphocytes (%) (Auto) 19.7 % (20.0-45.0) L Monocytes (%) (Auto) 6.8 % (1.0-10.0) Eosinophils (%) (Auto) 1.3 % (0.0-3.0) Basophils (%) (Auto) 0.7 % (0.0-2.0) Sodium Level 140 MMOL/L (136-145) Potassium Level 3.3 MMOL/L (3.5-5.1) L Chloride Level 106 MMOL/L (98-107) Carbon Dioxide Level 27 MMOL/L (21-32) Anion Gap 7 mmol/L (5-15) Blood Urea Nitrogen 15 mg/dL (7-18) Creatinine 0.7 MG/DL (0.55-1.30) Estimat Glomerular Filtration Rate > 60 mL/min (>60) Glucose Level 116 MG/DL (74-106) H Calcium Level 8.1 MG/DL (8.5-10.1) L Phosphorus Level 3.4 MG/DL (2.5-4.9) Magnesium Level 1.8 MG/DL (1.8-2.4) Pro-B-Type Natriuretic Peptide 3125 pg/mL (0-125) H Activated Partial Thromboplast Time > 150 SEC (23-33) *H Height (Feet): 5 Height (Inches): 3.00 Weight (Pounds): 130 Medications Current Medications Medications (Trade) Dose Ordered Sig/Damien Route PRN Reason Start Time Stop Time Status Last Admin Dose Admin Acetaminophen (Tylenol) 650 mg Q4H PRN ORAL Pain Scale (3-5) 07/22/20 05:45 08/21/20 05:44 Diltiazem HCl 125 ml @ 5 mls/hr ONCE ONCE IVPB 07/22/20 01:45 07/23/20 02:44 07/22/20 01:55 Heparin Sodium/ Dextrose 500 ml @ 15.331 mls/ hr ADJUST PER PROTOCOL IV 07/22/20 12:15 08/21/20 12:14 07/22/20 12:13 Ondansetron HCl (Zofran) 4 mg Q6H PRN IVP Nausea & Vomiting 07/22/20 05:45 08/21/20 05:44 07/22/20 06:50 Assessment/Plan Problem List: (1) Abdominal pain Assessment & Plan: Abd pain trop elevated no n/v lft's okay no gallstones gb okay gi track okay okay for diet no acute surgical intervention planned will follow with exam and recs thank you Gallbladder is unremarkable, without stones, wall thickening, nor pericholecystic fluid. Sonographic Gómez's sign is negative. Common bile duct measures 2 mm in diameter. No intrahepatic biliary ductal dilatation. Liver demonstrates normal echogenicity, no focal abnormality. Portal vein and hepatic veins are patent. Pancreas is unremarkable. Spleen is unremarkable. Left kidney measures 10.1 cm in length. Right kidney measures 9.9 cm length. Both kidneys demonstrate normal echogenicity. There is no hydronephrosis. Echogenic foci within the left renal sinus are probably artifactual, as no calculi are demonstrated on recent CT scan. Unremarkable inferior vena cava. Non-aneurysmal abdominal aorta . Impression: Negative for gallstones or dilated bile ducts or other significant abnormalityThere are colonic diverticula. No evidence of diverticulitis. The appendix is normal. No small bowel distention. No free or loculated intraperitoneal gas or fluid is evident. The distal esophagus, stomach, duodenum are unremarkable. Lack of IV contrast limits assessment of the solid organs. The liver, gallbladder, bile ducts, pancreas, spleen, adrenals, kidneys are all unremarkable. No renal or ureteral calculi, hydronephrosis, or hydroureter. No pelvic mass or adenopathy. Unremarkable bladder. The included lung bases demonstrate extensive interlobular interstitial septal thickening, as well as irregular focal opacities. The heart is markedly enlarged. 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 This appears normal anteriorly, however. Impression: Limited assessment of the GI tract, due to lack of enteric contrast administration No definite acute abdominal or pelvic abnormality Marked cardiomegaly Extensive pulmonary basilar interstitial septal thickening and irregular focal opacities bilaterally. Suspect on the basis of pulmonary edema, given the presence of significant cardiomegaly. Infectious etiology is also possible Incidental finding somewhat unusual T11 partial butterfly vertebra ICD Codes: R10.9 - Unspecified abdominal pain SNOMED: [id number], [id number] Qualifiers: Qualified Codes: R10.11 - Right upper quadrant pain (2) Acute exacerbation of CHF (congestive heart failure) ICD Codes: I50.9 - Heart failure, unspecified SNOMED: 664635362, [id number] Qualifiers: Qualified Codes: I50.9 - Heart failure, unspecified (3) Atrial flutter by electrocardiogram ICD Codes: I48.92 - Unspecified atrial flutter SNOMED: [id number] Alejandro Robles Jul 22, 2020 12:35
--- NOTE | 2020-07-22 12:52 | Diagnostic Imaging Report ---
Indication: Cough Technique: XRAY Chest 1v Comparison: None Findings: Heart is enlarged. Mediastinal contours are sharp. There are patchy infiltrates in the right lung. No significant pleural effusion. No pneumothorax. No acute osseous abnormality. Impression: Cardiomegaly. Patchy interstitial infiltrates noted in the right lung. Findings may potentially be related to viral pneumonia. Correlation with COVID status recommended. Component of interstitial edema may also be likely given cardiomegaly. Clinical correlation and follow-up recommended.
--- NOTE | 2020-07-22 14:50 | Cardiac Electrophysiology PN ---
Subjective Subjective [id number] Objective Last 24 Hour Vital Signs Date Time Temp Pulse Resp B/P (MAP) Pulse Ox O2 Delivery O2 Flow Rate FiO2 07/22/20 11:18 Room Air 07/22/20 10:25 98.0 77 19 128/77 100 Room Air 07/22/20 09:42 98.0 86 16 130/80 98 Room Air 07/22/20 09:16 98.2 07/22/20 07:30 98.2 74 17 114/77 98 Room Air 07/22/20 06:43 68 129/76 07/22/20 06:26 98.2 68 16 129/76 100 Room Air 07/22/20 05:11 98.2 69 16 127/78 100 Room Air 07/22/20 04:10 98.2 68 16 124/76 100 Room Air 07/22/20 03:15 98.2 71 16 133/86 100 Room Air 07/22/20 02:02 98.2 69 18 142/90 99 Room Air 07/22/20 01:49 98.2 07/22/20 01:10 98.2 68 18 130/75 99 Room Air 07/22/20 00:12 98.2 70 18 128/73 99 Room Air 07/21/20 22:22 98.2 68 18 129/72 99 Room Air 07/21/20 21:07 98.2 73 18 122/98 99 Room Air 07/21/20 20:34 98.2 73 18 139/90 99 Room Air 07/21/20 20:01 98.2 81 18 146/92 99 Room Air 07/21/20 19:54 98.2 83 18 153/87 99 Room Air 07/21/20 19:15 98.2 81 18 150/86 99 Room Air 07/21/20 18:50 132/88 07/21/20 18:49 115 132/89 07/21/20 17:41 98.2 76 18 142/92 99 Room Air 07/21/20 15:24 98.2 20 150/100 98 07/21/20 15:24 90 20 07/21/20 15:16 98.2 90 20 150/100 (117) 98 Intake and Output 07/21/20 07/22/20 19:00 07:00 Intake Total 0 ml 320 ml Balance 0 ml 320 ml Intake Oral 0 ml 320 ml # Voids 6 Laboratory Tests Test 07/21/20 15:18 07/21/20 15:30 07/22/20 00:35 07/22/20 01:00 Urine Color Yellow Urine Appearance Clear Urine pH 6 (4.5-8.0) Urine Specific [place] 1.020 (1.005-1.035) Urine Protein 3+ (NEGATIVE) H Urine Glucose (UA) Negative (NEGATIVE) Urine Ketones Negative (NEGATIVE) Urine Blood 5+ (NEGATIVE) H Urine Nitrite Negative (NEGATIVE) Urine Bilirubin Negative (NEGATIVE) Urine Urobilinogen Normal MG/DL (0.0-1.0) Urine Leukocyte Esterase Negative (NEGATIVE) Urine RBC 30-40 /HPF (0 - 2) H Urine WBC 0-2 /HPF (0 - 2) Urine Squamous Epithelial Cells Few /LPF (NONE/OCC) Urine Bacteria Few /HPF (NONE) White Blood Count 7.3 K/UL (4.8-10.8) Red Blood Count 4.39 M/UL (4.20-5.40) Hemoglobin 13.3 G/DL (12.0-16.0) Hematocrit 39.9 % (37.0-47.0) Mean Corpuscular Volume 91 FL (80-99) Mean Corpuscular Hemoglobin 30.3 PG (27.0-31.0) Mean Corpuscular Hemoglobin Concent 33.4 G/DL (32.0-36.0) Red Cell Distribution Width 15.0 % (11.6-14.8) H Platelet Count 217 K/UL (150-450) Mean Platelet Volume 8.7 FL (6.5-10.1) Neutrophils (%) (Auto) 68.1 % (45.0-75.0) Lymphocytes (%) (Auto) 23.8 % (20.0-45.0) Monocytes (%) (Auto) 5.9 % (1.0-10.0) Eosinophils (%) (Auto) 1.5 % (0.0-3.0) Basophils (%) (Auto) 0.7 % (0.0-2.0) Prothrombin Time 28.3 SEC (9.30-11.50) H Prothromb Time International Ratio 2.8 (0.9-1.1) H Sodium Level 142 MMOL/L (136-145) Potassium Level 4.1 MMOL/L (3.5-5.1) Chloride Level 107 MMOL/L (98-107) Carbon Dioxide Level 25 MMOL/L (21-32) Anion Gap 10 mmol/L (5-15) Blood Urea Nitrogen 19 mg/dL (7-18) H Creatinine 0.9 MG/DL (0.55-1.30) Estimat Glomerular Filtration Rate > 60 mL/min (>60) Glucose Level 120 MG/DL (74-106) H Calcium Level 8.9 MG/DL (8.5-10.1) Total Bilirubin 0.4 MG/DL (0.2-1.0) Aspartate Amino Transf (AST/SGOT) 29 U/L (15-37) Alanine Aminotransferase (ALT/SGPT) 28 U/L (12-78) Alkaline Phosphatase 124 U/L (46-116) H Troponin I 0.110 ng/mL (0.000-0.056) 0.130 ng/mL (0.000-0.056) Total Protein 6.8 G/DL (6.4-8.2) Albumin 3.5 G/DL (3.4-5.0) Globulin 3.3 g/dL Albumin/Globulin Ratio 1.1 (1.0-2.7) Lipase 189 U/L (73-393) Activated Partial Thromboplast Time 33 SEC (23-33) Test 07/22/20 04:10 07/22/20 08:08 White Blood Count 8.8 K/UL (4.8-10.8) Red Blood Count 4.27 M/UL (4.20-5.40) Hemoglobin 12.3 G/DL (12.0-16.0) Hematocrit 38.8 % (37.0-47.0) Mean Corpuscular Volume 91 FL (80-99) Mean Corpuscular Hemoglobin 28.7 PG (27.0-31.0) Mean Corpuscular Hemoglobin Concent 31.6 G/DL (32.0-36.0) L Red Cell Distribution Width 14.5 % (11.6-14.8) Platelet Count 185 K/UL (150-450) Mean Platelet Volume 8.1 FL (6.5-10.1) Neutrophils (%) (Auto) 71.5 % (45.0-75.0) Lymphocytes (%) (Auto) 19.7 % (20.0-45.0) L Monocytes (%) (Auto) 6.8 % (1.0-10.0) Eosinophils (%) (Auto) 1.3 % (0.0-3.0) Basophils (%) (Auto) 0.7 % (0.0-2.0) Sodium Level 140 MMOL/L (136-145) Potassium Level 3.3 MMOL/L (3.5-5.1) L Chloride Level 106 MMOL/L (98-107) Carbon Dioxide Level 27 MMOL/L (21-32) Anion Gap 7 mmol/L (5-15) Blood Urea Nitrogen 15 mg/dL (7-18) Creatinine 0.7 MG/DL (0.55-1.30) Estimat Glomerular Filtration Rate > 60 mL/min (>60) Glucose Level 116 MG/DL (74-106) H Calcium Level 8.1 MG/DL (8.5-10.1) L Phosphorus Level 3.4 MG/DL (2.5-4.9) Magnesium Level 1.8 MG/DL (1.8-2.4) Pro-B-Type Natriuretic Peptide 3125 pg/mL (0-125) H Activated Partial Thromboplast Time > 150 SEC (23-33) *Phil Ramires MD Jul 22, 2020 14:50
[2020-07-22] MEDS ORDERED: Heparin 5000 units/ml inj IV SCH (17:38)
--- NOTE | 2020-07-22 19:23 | NUR ---
NURSE HAND-OFF REPORT: Important Events on Shift:admission, on heparin drip. Complaining of abdominal pain and headache. Patient Status: alert, pleasant Diet: cardiac Pending Orders: 2D echo Pending Results/Labs: Pending MD notification: Latest Vital Signs: Temperature 98.1 , Pulse 83 , B/P 135 /88 , Respiratory Rate 20 , O2 SAT 98 , Room Air, O2 Flow Rate . Vital Sign Comment: EKG Rhythm: Atrial Flutter Rhythm change?: N MD Notified?: N - MD Response: Latest He Fall Score: 20 Fall Risk: Low Risk Safety Measures: Call light Within Reach, Bed Alarm , Side Rails Side Rails x2, Bed position . Fall Precautions: Report given to Autumn MADISON.
--- NOTE | 2020-07-22 19:25 | NUR ---
NURSE NOTES: Receive a report from LOS Sarkar. Round is done. Pt is awake and alert. No acute distress noted. Denies chest discomfort. On heparin drip for Af as ordered. No bleeding signs noted. Skin intact. Call light within reach. Will continue to monitor.
[2020-07-22] MEDS: Atorvastatin 80mg tab ORAL SCH (20:51)
[2020-07-22] MEDS: Metoprolol Tartrate 50mg tab ORAL SCH (20:51)
[2020-07-22] MEDS: dilTIAZem HCl 30mg tab ORAL SCH (22:25)
[2020-07-23 00:32] VITALS: BP 112/82
--- NOTE | 2020-07-23 01:05 | NUR ---
NURSE NOTES: Ptt result came out and spoke to pharmacist @ [facility]. Receive a new order with following up ptt. Will continue to monitor.
[2020-07-23] MEDS ORDERED: Heparin 25,000u/D5W 500ml 500 ML IV SCH ×2 (01:30→23:30)
--- NOTE | 2020-07-23 01:36 | NUR ---
NURSE NOTES: Heparin drop decreased from 15u/hr/kg to 13u/hr/kg and ptt will be followed @0736. Will continue to monitor.
[2020-07-23 04:00] VITALS: BP 127/77
[2020-07-23] MEDS: dilTIAZem HCl 30mg tab ORAL SCH (06:32)
--- NOTE | 2020-07-23 06:47 | NUR ---
NURSE HAND-OFF REPORT: Important Events on Shift:Heparin drip for Af. Dose change from 15u to 13u. LACKEY(+). RLQ discomfort. Patient Status: [stable] Diet: [cardiac diet] Pending Orders: [] Pending Results/Labs:[] Pending MD notification:[] Latest Vital Signs: Temperature 97.6 , Pulse 74 , B/P 127 /77 , Respiratory Rate 18 , O2 SAT 98 , Room Air, O2 Flow Rate . Vital Sign Comment: [] EKG Rhythm: Af & AF Rhythm change?: N MD Notified?: N - MD Response: Latest He Fall Score: 20 Fall Risk: Low Risk Safety Measures: Call light Within Reach, Bed Alarm , Side Rails Side Rails x2, Bed position Low and Locked. Fall Precautions: Door Sign Patient Fall Education
--- NOTE | 2020-07-23 07:14 | Consultation ---
DATE OF CONSULTATION: 07/22/2020 CARDIOLOGY CONSULTATION REASON FOR CONSULTATION: Atrial fibrillation, rapid ventricular response. HISTORY OF PRESENT ILLNESS: The patient is a 54-year-old lady with a history of hypertension and questionable aortic valve aortic valve surgery at [facility], who came to the emergency room with right-sided abdominal pain and tenderness in the right lower ribs for 3 days. The patient's epigastric pain radiated to the epigastric area and her throat. The patient has a history of hypertension and takes metoprolol and also takes Coumadin daily as she had some heart procedure about a year ago and has been on it ever since. The patient had one episode of vomiting, but no blood in the vomit. In the emergency room, the patient was found to be in atrial flutter with rapid ventricular response, and per my order, the patient was started on Cardizem drip. The heart rate eventually stabilized, but still in atrial flutter. Cardiology consultation was obtained for further evaluation and management. REVIEW OF SYSTEMS: Negative other than what was mentioned in history of present illness. PAST MEDICAL HISTORY: As mentioned above. FAMILY HISTORY: Noncontributory. SOCIAL HISTORY: She lives at home, does not smoke or drink alcohol. PHYSICAL EXAMINATION: VITAL SIGNS: Blood pressure of 128/77, pulse is 77, respirations 18, temperature is 98. HEAD AND NECK: No JVD. LUNGS: Coarse rhonchi. CARDIOVASCULAR: Regular S1 and S2 with no gallop or murmur. ABDOMEN: Soft. EXTREMITIES: No pitting edema. LABORATORY AND DIAGNOSTIC DATA: Her labs show white count of 8.8, hemoglobin 12.3, hematocrit 38, and platelet count is 185. Sodium 140, potassium 3.3, BUN of 15, creatinine of 0.7, and glucose of 116. Troponin 0.11 and 0.13. ASSESSMENT AND PLAN: 1. Zes-EM-xulofubry myocardial infarction with troponin of 0.11 and 0.13 in the absence of renal failure. This, however, patient's atrial flutter with rapid ventricular response. I started the patient on Cardizem drip, but the heart rate improved. I will start the patient on Cardizem 60 mg every 8 hours and resume the patient's metoprolol 50 mg b.i.d. The patient's INR is therapeutic on Coumadin, but currently she is on heparin any procedures. 2. History of questionable aortic valve aortic valve surgery. The patient stated this was done at [facility]. We will try to get the records for further information. In the meantime, get an echocardiogram for further evaluation. 3. The patient has a history of right breast cancer. 4. Hypokalemia. Potassium will be replaced. Also, for the patient's elevated troponin, I will add aspirin and Lipitor to her medical regimen. 5. For the patient's abdominal pain, the patient already underwent a CT of the abdomen and pelvis as well as abdominal ultrasound. Further evaluation by GI and Surgery. Thank you very much for allowing me to participate in the care of this patient. Please do not hesitate to contact me for any questions regarding my evaluation. Phil Richey M.D. DR: SPARKLE JOB#: [id number] CC:
--- NOTE | 2020-07-23 07:31 | NUR ---
HAND-OFF: Report given to LOS Mathis.
--- NOTE | 2020-07-23 07:35 | NUR ---
NURSE NOTES: Received AM report. pt is in the bed alert, and awake; verbally responsive. denies any chest pain and discomfort. no bleeding and no bruising noted at this time. no acute distress noted on pt. call light light is within reach.
[2020-07-23 07:38] LABS: INR 1.7 (0.9-1.1)
[2020-07-23 07:42] LABS: BASOPHILS % (AUTO) 1.1 % (0.0-2.0); EOSINOPHILS % (AUTO) 1.9 % (0.0-3.0); HEMATOCRIT 45.3 % (37.0-47.0); HEMOGLOBIN 14.2 G/DL (12.0-16.0); MEAN CORPUSCULAR VOLUME 92 FL (80-99); MONOCYTES % (AUTO) 6.9 % (1.0-10.0); PLATELET COUNT 191 K/UL (150-450); RED CELL DISTRIBUTION WIDTH 15.6 % (11.6-14.8); WHITE BLOOD COUNT 6.1 K/UL (4.8-10.8)
[2020-07-23 07:59] LABS: ALANINE AMINOTRANSFERASE 24 U/L (12-78); ALBUMIN 3.4 G/DL (3.4-5.0); ALKALINE PHOSPHATASE 121 U/L (46-116); AMYLASE 54 U/L (25-115); ANION GAP 4 mmol/L (5-15); ASPARTATE AMINO TRANSFERASE 25 U/L (15-37); BLOOD UREA NITROGEN 10 mg/dL (7-18); CALCIUM 9.1 MG/DL (8.5-10.1); CARBON DIOXIDE 28 MMOL/L (21-32); CHLORIDE 107 MMOL/L (98-107); CHOLESTEROL 183 MG/DL (< 200); CREATININE 0.8 MG/DL (0.55-1.30); HDL CHOLESTEROL 43 MG/DL (40-60); POTASSIUM 4.5 MMOL/L (3.5-5.1); SODIUM 139 MMOL/L (136-145); TRIGLYCERIDES 103 MG/DL (30-150)
[2020-07-23 08:00] VITALS: BP 114/81
[2020-07-23] MEDS ORDERED: Heparin 5000 units/ml inj IV SCH ×2 (08:00→23:30)
--- NOTE | 2020-07-23 08:25 | Internal Med Progress Note ---
Subjective Physician Name Luis Fernando Sow Attending Physician Luis Fernando Sow M.D. Current Medications Medications (Trade) Dose Ordered Sig/Damien Route PRN Reason Start Time Stop Time Status Last Admin Dose Admin Acetaminophen (Tylenol) 650 mg Q4H PRN ORAL Pain Scale (3-5) 07/22/20 05:45 08/21/20 05:44 07/23/20 00:29 Aspirin (Ecotrin) 81 mg DAILY ORAL 07/23/20 09:00 09/06/20 08:59 Atorvastatin Calcium (Lipitor) 80 mg BEDTIME ORAL 07/22/20 21:00 10/20/20 20:59 07/22/20 20:51 Diltiazem HCl (Cardizem Tab) 30 mg EVERY 8 HOURS ORAL 07/22/20 22:00 08/21/20 21:59 07/23/20 06:32 Heparin Sodium (Porcine) (Heparin 5000 units/ml) 4,500 units ONCE IV 07/23/20 08:00 07/23/20 09:30 Heparin Sodium/ Dextrose 500 ml @ 20.049 mls/ hr ADJUST PER PROTOCOL IV 07/23/20 08:00 08/22/20 07:59 Metoprolol Tartrate (Lopressor) 50 mg Q12HR ORAL 07/22/20 21:00 10/20/20 20:59 07/22/20 20:51 Ondansetron HCl (Zofran) 4 mg Q6H PRN IVP Nausea & Vomiting 07/22/20 05:45 08/21/20 05:44 07/22/20 06:50 Allergies: Coded Allergies: No Known Allergies (Unverified , 07/21/20) ROS Limited/Unobtainable: No Constitutional: Reports: weakness All Systems: reviewed and negative except above Subjective heart rate better controlled EF 35% Objective Last Vital Signs Date Time Temp Pulse Resp B/P (MAP) Pulse Ox O2 Delivery O2 Flow Rate FiO2 07/23/20 06:32 74 127/77 07/23/20 04:00 97.6 18 98 07/22/20 21:00 Room Air Laboratory Tests Test 07/22/20 17:10 07/23/20 00:15 07/23/20 07:16 Activated Partial Thromboplast Time 62 SEC (23-33) H 104 SEC (23-33) H 44 SEC (23-33) H White Blood Count 6.1 K/UL (4.8-10.8) Red Blood Count 4.90 M/UL (4.20-5.40) Hemoglobin 14.2 G/DL (12.0-16.0) Hematocrit 45.3 % (37.0-47.0) Mean Corpuscular Volume 92 FL (80-99) Mean Corpuscular Hemoglobin 29.0 PG (27.0-31.0) Mean Corpuscular Hemoglobin Concent 31.4 G/DL (32.0-36.0) L Red Cell Distribution Width 15.6 % (11.6-14.8) H Platelet Count 191 K/UL (150-450) Mean Platelet Volume 8.2 FL (6.5-10.1) Neutrophils (%) (Auto) 61.0 % (45.0-75.0) Lymphocytes (%) (Auto) 29.0 % (20.0-45.0) Monocytes (%) (Auto) 6.9 % (1.0-10.0) Eosinophils (%) (Auto) 1.9 % (0.0-3.0) Basophils (%) (Auto) 1.1 % (0.0-2.0) Erythrocyte Sedimentation Rate Pending Prothrombin Time 18.0 SEC (9.30-11.50) H Prothromb Time International Ratio 1.7 (0.9-1.1) H Sodium Level 139 MMOL/L (136-145) Potassium Level 4.5 MMOL/L (3.5-5.1) Chloride Level 107 MMOL/L (98-107) Carbon Dioxide Level 28 MMOL/L (21-32) Anion Gap 4 mmol/L (5-15) L Blood Urea Nitrogen 10 mg/dL (7-18) Creatinine 0.8 MG/DL (0.55-1.30) Estimat Glomerular Filtration Rate > 60 mL/min (>60) Glucose Level 110 MG/DL (74-106) H Lactic Acid Level 1.20 mmol/L (0.4-2.0) Calcium Level 9.1 MG/DL (8.5-10.1) Total Bilirubin 1.0 MG/DL (0.2-1.0) Aspartate Amino Transf (AST/SGOT) 25 U/L (15-37) Alanine Aminotransferase (ALT/SGPT) 24 U/L (12-78) Alkaline Phosphatase 121 U/L (46-116) H Troponin I 0.079 ng/mL (0.000-0.056) Pro-B-Type Natriuretic Peptide 1901 pg/mL (0-125) H Total Protein 6.9 G/DL (6.4-8.2) Albumin 3.4 G/DL (3.4-5.0) Globulin 3.5 g/dL Albumin/Globulin Ratio 1.0 (1.0-2.7) Triglycerides Level 103 MG/DL (30-150) Cholesterol Level 183 MG/DL (< 200) LDL Cholesterol 120 mg/dL (<100) H HDL Cholesterol 43 MG/DL (40-60) Cholesterol/HDL Ratio 4.3 (3.3-4.4) Amylase Level 54 U/L (25-115) Lipase 192 U/L (73-393) Thyroid Stimulating Hormone (TSH) 3.804 uiU/mL (0.358-3.740) Free Thyroxine 1.18 NG/DL (0.76-1.46) Intake and Output 07/22/20 07/23/20 19:00 07:00 Intake Total 500 ml 400 ml Balance 500 ml 400 ml Intake Oral 500 ml 400 ml # Voids 1 2 Objective General appearance: alert, cooperative, no distress, appears stated age Head: Normocephalic, without obvious abnormality, atraumatic Eyes: conjunctivae/corneas clear. PERRL, EOM's intact. Fundi benign Throat: Lips, mucosa, and tongue normal. Teeth and gums normal Neck: supple, symmetrical, trachea midline, no adenopathy, thyroid: not enlarged, symmetric, no tenderness/mass/nodules, no carotid bruit and no JVD Lungs: clear to auscultation bilaterally Heart: tachycardic S1, S2 normal, no murmur, click, rub or gallop Abdomen: soft, non-tender. Bowel sounds normal. No masses, no organomegaly Extremities: extremities normal, atraumatic, no cyanosis or edema Pulses: 2+ and symmetric Skin: Skin color, texture, turgor normal. No rashes or lesions Neurologic: Grossly normal Assessment/Plan Assessment/Plan #Atrial flutter #MONY #NSTEMI #hisotory of aortic valve surgery #HTN #h/o breast cancer #hypokalemia - meto 100mg BID - DC cardizem - asa - statin - echo with EF 35% - cardiology eval - heparin drip - monitor lytes - replete Luis Fernando Brown M.D. Jul 23, 2020 08:25
[2020-07-23] MEDS: Metoprolol Tartrate 50mg tab ORAL SCH (08:39)
[2020-07-23] MEDS: Aspirin EC 81mg tab ORAL SCH (08:39)
[2020-07-23] MEDS: Heparin 25,000u/D5W 500ml 500 ML IV SCH ×2 (08:50→16:50)
--- NOTE | 2020-07-23 09:57 | Cardiac Electrophysiology PN ---
Assessment/Plan Assessment/Plan 1. [id number] myocardial infarction with troponin of 0.11 and 0.13 in the absence of renal failure. Could be due to patient's atrial flutter with rapid ventricular response. On Aspirin, Lopressor and Lipitor EF 35-40% 2. Atrial fib with RVR,. On Cardizem drip heart rate improved. Now on Cardizem 60 q 8 hours and metoprolol 50 q12. Coumadin changed to heparin 3. History of questionable aortic valve surgery. The patient stated this was done at [facility]. We will try to get the records for further information. In the meantime, get an echocardiogram for further evaluation. 4. CHF EF 35%. Records from [facility] pending. DC CArdizem. Increase Lopressor to 100 po bid 5. For the patient's abdominal pain, the patient already underwent a CT of the abdomen and pelvis as well as abdominal ultrasound. Further evaluation by GI and Surgery. 6. The patient has a history of right breast cancer. Subjective Subjective Remained in atrial flutter in 60s. No CP or SOB Objective Last 24 Hour Vital Signs Date Time Temp Pulse Resp B/P (MAP) Pulse Ox O2 Delivery O2 Flow Rate FiO2 07/23/20 08:39 74 114/81 07/23/20 08:00 99.1 74 18 114/81 (92) 98 07/23/20 06:32 74 127/77 07/23/20 04:00 74 07/23/20 04:00 97.6 68 18 127/77 (94) 98 07/23/20 00:32 98.1 82 18 112/82 (92) 97 07/23/20 00:00 80 07/22/20 22:25 92 134/86 07/22/20 21:00 Room Air 07/22/20 20:51 80 131/86 07/22/20 20:00 95 07/22/20 20:00 98.1 80 18 131/86 (101) 98 07/22/20 16:00 83 07/22/20 16:00 98.1 87 20 135/88 (104) 98 07/22/20 12:00 62 07/22/20 12:00 98.0 72 18 140/80 (100) 100 07/22/20 11:18 Room Air 07/22/20 10:25 98.0 77 19 128/77 100 Room Air Intake and Output 07/22/20 07/23/20 19:00 07:00 Intake Total 500 ml 400 ml Balance 500 ml 400 ml Intake Oral 500 ml 400 ml # Voids 1 2 Laboratory Tests Test 07/22/20 17:10 07/23/20 00:15 07/23/20 07:16 Activated Partial Thromboplast Time 62 SEC (23-33) H 104 SEC (23-33) H 44 SEC (23-33) H White Blood Count 6.1 K/UL (4.8-10.8) Red Blood Count 4.90 M/UL (4.20-5.40) Hemoglobin 14.2 G/DL (12.0-16.0) Hematocrit 45.3 % (37.0-47.0) Mean Corpuscular Volume 92 FL (80-99) Mean Corpuscular Hemoglobin 29.0 PG (27.0-31.0) Mean Corpuscular Hemoglobin Concent 31.4 G/DL (32.0-36.0) L Red Cell Distribution Width 15.6 % (11.6-14.8) H Platelet Count 191 K/UL (150-450) Mean Platelet Volume 8.2 FL (6.5-10.1) Neutrophils (%) (Auto) 61.0 % (45.0-75.0) Lymphocytes (%) (Auto) 29.0 % (20.0-45.0) Monocytes (%) (Auto) 6.9 % (1.0-10.0) Eosinophils (%) (Auto) 1.9 % (0.0-3.0) Basophils (%) (Auto) 1.1 % (0.0-2.0) Erythrocyte Sedimentation Rate 10 MM/HR (0-30) Prothrombin Time 18.0 SEC (9.30-11.50) H Prothromb Time International Ratio 1.7 (0.9-1.1) H Sodium Level 139 MMOL/L (136-145) Potassium Level 4.5 MMOL/L (3.5-5.1) Chloride Level 107 MMOL/L (98-107) Carbon Dioxide Level 28 MMOL/L (21-32) Anion Gap 4 mmol/L (5-15) L Blood Urea Nitrogen 10 mg/dL (7-18) Creatinine 0.8 MG/DL (0.55-1.30) Estimat Glomerular Filtration Rate > 60 mL/min (>60) Glucose Level 110 MG/DL (74-106) H Lactic Acid Level 1.20 mmol/L (0.4-2.0) Calcium Level 9.1 MG/DL (8.5-10.1) Total Bilirubin 1.0 MG/DL (0.2-1.0) Aspartate Amino Transf (AST/SGOT) 25 U/L (15-37) Alanine Aminotransferase (ALT/SGPT) 24 U/L (12-78) Alkaline Phosphatase 121 U/L (46-116) H Troponin I 0.079 ng/mL (0.000-0.056) Pro-B-Type Natriuretic Peptide 1901 pg/mL (0-125) H Total Protein 6.9 G/DL (6.4-8.2) Albumin 3.4 G/DL (3.4-5.0) Globulin 3.5 g/dL Albumin/Globulin Ratio 1.0 (1.0-2.7) Triglycerides Level 103 MG/DL (30-150) Cholesterol Level 183 MG/DL (< 200) LDL Cholesterol 120 mg/dL (<100) H HDL Cholesterol 43 MG/DL (40-60) Cholesterol/HDL Ratio 4.3 (3.3-4.4) Amylase Level 54 U/L (25-115) Lipase 192 U/L (73-393) Thyroid Stimulating Hormone (TSH) 3.804 uiU/mL (0.358-3.740) Free Thyroxine 1.18 NG/DL (0.76-1.46) Objective HEAD AND NECK: No JVD. LUNGS: Coarse rhonchi. CARDIOVASCULAR: Regular S1 and S2 with no gallop or murmur. ABDOMEN: Soft. EXTREMITIES: No pitting edema. Phil Richey MD Jul 23, 2020 09:57
[2020-07-23] MEDS: Metoprolol Tartrate 100mg tab ORAL SCH ×2 (10:33→20:16)
[2020-07-23 12:00] VITALS: BP 119/73
--- NOTE | 2020-07-23 13:52 | Pulmonology Progress Note ---
Subjective ROS Limited/Unobtainable: No Interval Events: none major reported per nursing HEENT: Repors: no symptoms Respiratory: Reports: no symptoms Cardiovascular: Reports: no symptoms; Denies: chest pain, palpitations Gastrointestinal/Abdominal: Reports: other - RUQ abd pain improved Allergies: Coded Allergies: No Known Allergies (Unverified , 07/21/20) Objective Last 24 Hour Vital Signs Date Time Temp Pulse Resp B/P (MAP) Pulse Ox O2 Delivery O2 Flow Rate FiO2 07/23/20 10:33 74 114/81 07/23/20 08:39 74 114/81 07/23/20 08:00 99.1 74 18 114/81 (92) 98 07/23/20 06:32 74 127/77 07/23/20 04:00 74 07/23/20 04:00 97.6 68 18 127/77 (94) 98 07/23/20 00:32 98.1 82 18 112/82 (92) 97 07/23/20 00:00 80 07/22/20 22:25 92 134/86 07/22/20 21:00 Room Air 07/22/20 20:51 80 131/86 07/22/20 20:00 95 07/22/20 20:00 98.1 80 18 131/86 (101) 98 07/22/20 16:00 83 07/22/20 16:00 98.1 87 20 135/88 (104) 98 Intake and Output 07/22/20 07/23/20 19:00 07:00 Intake Total 500 ml 400 ml Balance 500 ml 400 ml Intake Oral 500 ml 400 ml # Voids 1 2 HEENT: atraumatic Respiratory: lungs clear Cardiovascular: normal rate Abdomen: tender - RUQ Laboratory Tests 07/22/20 17:10: Activated Partial Thromboplast Time 62H 07/23/20 00:15: Activated Partial Thromboplast Time 104H 07/23/20 07:16: Activated Partial Thromboplast Time 44H, White Blood Count 6.1, Red Blood Count 4.90, Hemoglobin 14.2, Hematocrit 45.3, Mean Corpuscular Volume 92, Mean Corpuscular Hemoglobin 29.0, Mean Corpuscular Hemoglobin Concent 31.4L, Red Cell Distribution Width 15.6H, Platelet Count 191, Mean Platelet Volume 8.2, Neutrophils (%) (Auto) 61.0, Lymphocytes (%) (Auto) 29.0, Monocytes (%) (Auto) 6.9, Eosinophils (%) (Auto) 1.9, Basophils (%) (Auto) 1.1, Erythrocyte Sedimentation Rate 10, Prothrombin Time 18.0H, Prothromb Time International Ratio 1.7H, Sodium Level 139, Potassium Level 4.5, Chloride Level 107, Carbon Dioxide Level 28, Anion Gap 4L, Blood Urea Nitrogen 10, Creatinine 0.8, Estimat Glomerular Filtration Rate > 60, Glucose Level 110H, Lactic Acid Level 1.20, Skinny cium Level 9.1, Total Bilirubin 1.0, Aspartate Amino Transf (AST/SGOT) 25, Alanine Aminotransferase (ALT/SGPT) 24, Alkaline Phosphatase 121H, Troponin I 0.079H, Pro-B-Type Natriuretic Peptide 1901H, Total Protein 6.9, Albumin 3.4, Globulin 3.5, Albumin/Globulin Ratio 1.0, Triglycerides Level 103, Cholesterol Level 183, LDL Cholesterol 120H, HDL Cholesterol 43, Cholesterol/HDL Ratio 4.3, Amylase Level 54, Lipase 192, Thyroid Stimulating Hormone (TSH) 3.804H, Free Thyroxine 1.18 Current Medications Medications (Trade) Dose Ordered Sig/Damien Route PRN Reason Start Time Stop Time Status Last Admin Dose Admin Acetaminophen (Tylenol) 650 mg Q4H PRN ORAL Pain Scale (3-5) 07/22/20 05:45 08/21/20 05:44 07/23/20 12:35 Aspirin (Ecotrin) 81 mg DAILY ORAL 07/23/20 09:00 09/06/20 08:59 07/23/20 08:39 Atorvastatin Calcium (Lipitor) 80 mg BEDTIME ORAL 07/22/20 21:00 10/20/20 20:59 07/22/20 20:51 Heparin Sodium/ Dextrose 500 ml @ 20.049 mls/ hr ADJUST PER PROTOCOL IV 07/23/20 08:00 08/22/20 07:59 07/23/20 08:50 Metoprolol Tartrate (Lopressor) 100 mg Q12HR ORAL 07/23/20 10:00 10/20/20 20:59 07/23/20 10:33 Ondansetron HCl (Zofran) 4 mg Q6H PRN IVP Nausea & Vomiting 07/22/20 05:45 08/21/20 05:44 07/22/20 06:50 Assessment/Plan Assessment/Plan 1. Pulmonary basilar interstitial septal thickening and irregular focal opacities - Suspect pulmonary fibrosis. - Continue oxygen as needed - Recommend outpatient workup for this condition 2. DVT ppx - on heparin 3. Non-STEMI in the absence of renal failure. 2. Atrial fib with RVR 3. History of questionable aortic valve surgery. 4. CHF EF 35%. -Cardiology following The care for this patient was discussed with my supervising physician. Time spent for this case was approximately 31 minutes. Ovidio Sidhu Jul 23, 2020 13:51
--- NOTE | 2020-07-23 14:21 | NUR ---
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
[2020-07-23 16:00] VITALS: BP 131/81
--- NOTE | 2020-07-23 18:02 | Surgery Progress Note ---
Surgery Progress Note Subjective Symptoms: improved Objective Last 24 Hour Vital Signs Date Time Temp Pulse Resp B/P (MAP) Pulse Ox O2 Delivery O2 Flow Rate FiO2 07/23/20 16:00 70 07/23/20 16:00 97.8 83 18 131/81 (98) 98 07/23/20 12:00 98.4 70 18 119/73 (88) 99 07/23/20 12:00 61 07/23/20 10:33 74 114/81 07/23/20 09:00 Room Air 07/23/20 08:39 74 114/81 07/23/20 08:00 99.1 74 18 114/81 (92) 98 07/23/20 08:00 81 07/23/20 06:32 74 127/77 07/23/20 04:00 74 07/23/20 04:00 97.6 68 18 127/77 (94) 98 07/23/20 00:32 98.1 82 18 112/82 (92) 97 07/23/20 00:00 80 07/22/20 22:25 92 134/86 07/22/20 21:00 Room Air 07/22/20 20:51 80 131/86 07/22/20 20:00 95 07/22/20 20:00 98.1 80 18 131/86 (101) 98 I&O Intake and Output 07/22/20 07/23/20 19:00 07:00 Intake Total 500 ml 400 ml Balance 500 ml 400 ml Intake Oral 500 ml 400 ml # Voids 1 2 Cardiovascular: RSR Respiratory: decreased breath sounds Abdomen: soft, flat, non-tender, present bowel sounds, non-distended Extremities: no edema, no tenderness, no cyanosis Laboratory Tests Test 07/23/20 00:15 07/23/20 07:16 07/23/20 15:30 Activated Partial Thromboplast Time 104 SEC (23-33) H 44 SEC (23-33) H 115 SEC (23-33) H White Blood Count 6.1 K/UL (4.8-10.8) Red Blood Count 4.90 M/UL (4.20-5.40) Hemoglobin 14.2 G/DL (12.0-16.0) Hematocrit 45.3 % (37.0-47.0) Mean Corpuscular Volume 92 FL (80-99) Mean Corpuscular Hemoglobin 29.0 PG (27.0-31.0) Mean Corpuscular Hemoglobin Concent 31.4 G/DL (32.0-36.0) L Red Cell Distribution Width 15.6 % (11.6-14.8) H Platelet Count 191 K/UL (150-450) Mean Platelet Volume 8.2 FL (6.5-10.1) Neutrophils (%) (Auto) 61.0 % (45.0-75.0) Lymphocytes (%) (Auto) 29.0 % (20.0-45.0) Monocytes (%) (Auto) 6.9 % (1.0-10.0) Eosinophils (%) (Auto) 1.9 % (0.0-3.0) Basophils (%) (Auto) 1.1 % (0.0-2.0) Erythrocyte Sedimentation Rate 10 MM/HR (0-30) Prothrombin Time 18.0 SEC (9.30-11.50) H Prothromb Time International Ratio 1.7 (0.9-1.1) H Sodium Level 139 MMOL/L (136-145) Potassium Level 4.5 MMOL/L (3.5-5.1) Chloride Level 107 MMOL/L (98-107) Carbon Dioxide Level 28 MMOL/L (21-32) Anion Gap 4 mmol/L (5-15) L Blood Urea Nitrogen 10 mg/dL (7-18) Creatinine 0.8 MG/DL (0.55-1.30) Estimat Glomerular Filtration Rate > 60 mL/min (>60) Glucose Level 110 MG/DL (74-106) H Lactic Acid Level 1.20 mmol/L (0.4-2.0) Calcium Level 9.1 MG/DL (8.5-10.1) Total Bilirubin 1.0 MG/DL (0.2-1.0) Aspartate Amino Transf (AST/SGOT) 25 U/L (15-37) Alanine Aminotransferase (ALT/SGPT) 24 U/L (12-78) Alkaline Phosphatase 121 U/L (46-116) H Troponin I 0.079 ng/mL (0.000-0.056) Pro-B-Type Natriuretic Peptide 1901 pg/mL (0-125) H Total Protein 6.9 G/DL (6.4-8.2) Albumin 3.4 G/DL (3.4-5.0) Globulin 3.5 g/dL Albumin/Globulin Ratio 1.0 (1.0-2.7) Triglycerides Level 103 MG/DL (30-150) Cholesterol Level 183 MG/DL (< 200) LDL Cholesterol 120 mg/dL (<100) H HDL Cholesterol 43 MG/DL (40-60) Cholesterol/HDL Ratio 4.3 (3.3-4.4) Amylase Level 54 U/L (25-115) Lipase 192 U/L (73-393) Thyroid Stimulating Hormone (TSH) 3.804 uiU/mL (0.358-3.740) Free Thyroxine 1.18 NG/DL (0.76-1.46) Plan Problems: (1) Abdominal pain Assessment & Plan: Abd pain trop elevated no n/v lft's okay no gallstones gb okay gi track okay okay for diet no acute surgical intervention planned will follow with exam and recs thank you Gallbladder is unremarkable, without stones, wall thickening, nor pericholecystic fluid. Sonographic Gómez's sign is negative. Common bile duct measures 2 mm in diameter. No intrahepatic biliary ductal dilatation. Liver demonstrates normal echogenicity, no focal abnormality. Portal vein and hepat ic veins are patent. Pancreas is unremarkable. Spleen is unremarkable. Left kidney measures 10.1 cm in length. Right kidney measures 9.9 cm length. Both kidneys demonstrate normal echogenicity. There is no hydronephrosis. Echogenic foci within the left renal sinus are probably artifactual, as no calculi are demonstrated on recent CT scan. Unremarkable inferior vena cava. Non-aneurysmal abdominal aorta . Impression: Negative for gallstones or dilated bile ducts or other significant abnormalityThere are colonic diverticula. No evidence of diverticulitis. The appendix is normal. No small bowel distention. No free or loculated intraperitoneal gas or fluid is evident. The distal esophagus, stomach, duodenum are unremarkable. Lack of IV contrast limits assessment of the solid organs. The liver, gallbladder, bile ducts, pancreas, spleen, adrenals, kidneys are all unremarkable. No renal or ureteral calculi, hydronephrosis, or hydroureter. No pelvic mass or adenopathy. Unremarkable bladder. The included lung bases demonstrate extensive interlobular interstitial septal thickening, as well as irregular focal opacities. The heart is markedly enlarged. 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 This appears normal anteriorly, however. Impression: Limited assessment of the GI tract, due to lack of enteric contrast administration No definite acute abdominal or pelvic abnormality Marked cardiomegaly Extensive pulmonary basilar interstitial septal thickening and irregular focal opacities bilaterally. Suspect on the basis of pulmonary edema, given the presence of significant cardiomegaly. 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
--- NOTE | 2020-07-23 18:36 | NUR ---
NURSE HAND-OFF REPORT: Important Events on Shift:receiving heparin drip Patient Status: stable Diet: cardiac Pending Orders: n/a Pending Results/Labs:n/a Pending MD notification:n/a Latest Vital Signs: Temperature 97.8 , Pulse 83 , B/P 131 /81 , Respiratory Rate 18 , O2 SAT 98 , Room Air, O2 Flow Rate . Vital Sign Comment: stable EKG Rhythm: AFIB/FLUTTER Rhythm change?: N MD Notified?: N - MD Response: Latest He Fall Score: 20 Fall Risk: Low Risk Safety Measures: Call light Within Reach, Bed Alarm , Side Rails Side Rails x2, Bed position Low and Locked. Fall Precautions: Door Sign Patient Fall Education Report given to . Addendum: 07/23/20 at 1915 by Je Rangel RN HAND-OFF: Report given to Navi.
--- NOTE | 2020-07-23 19:15 | NUR ---
NURSE NOTES: Received report from LOS Wooten. Pt in bed, awake, alert/oriented x4, able to make needs known. No resp distress noted. engine monitor in place.IV on Left hand 20G running heparine, no s/s bleeding noted. Bed in low position & locked, side rails up x3. bed alarm on. Call light with in reach.
[2020-07-23 20:00] VITALS: BP 133/92
[2020-07-23] MEDS: Atorvastatin 80mg tab ORAL SCH (20:15)
[2020-07-24] VITALS: BP 126/76
[2020-07-24 04:00] VITALS: BP 134/90
[2020-07-24 06:24] LABS: ANION GAP 7 mmol/L (5-15); BLOOD UREA NITROGEN 12 mg/dL (7-18); CALCIUM 8.7 MG/DL (8.5-10.1); CARBON DIOXIDE 26 MMOL/L (21-32); CHLORIDE 109 MMOL/L (98-107); CREATININE 0.7 MG/DL (0.55-1.30); PHOSPHORUS 3.6 MG/DL (2.5-4.9); POTASSIUM 3.6 MMOL/L (3.5-5.1); SODIUM 142 MMOL/L (136-145)
--- NOTE | 2020-07-24 06:40 | NUR ---
NURSE NOTES: PT HAD AN EPISODE OF BRADYCARDIA AT A RATE OF 37. PT ASLEEP, ASSESSED, PT. NO C/O OF CHEST PAIN , B/P 130/88. HR INCREASED TO 74 STILL WITH A.FIB & A.FLUTTER. NOTIFIED DR. BARKLEY OF PTS RHYTHM CHANGE, AWAITING CALL BACK.
--- NOTE | 2020-07-24 06:45 | NUR ---
NURSE NOTES: [facility] CALLED TO REGARDING PTT RESULTS. HEPARIN DRIP TO BE HELD FOR 30 MIN AND RESTART AT RATE OF 13UNITS/KG/HR.
--- NOTE | 2020-07-24 07:00 | NUR ---
NURSE NOTES: HEPARIN DRIP ON HOLD FOR 30 MIN
--- NOTE | 2020-07-24 07:15 | NUR ---
NURSE HAND-OFF REPORT: Important Events on Shift:[PTT DONE AT 2300 PTT 63 HEPARIN DRIP INCREASED TO 16UNITS/KG/HR, PTT DONE AT 0600 PTT 128, HEPARIN DRIP HELD FOR 30 MIN, HEPARIN DRIP TO RESTART AT 13UNITS/KG/HR. PT HAD EPISODE OF BRADYCARDIA AT 37, LEFT MESSAGE FOR DR. HERNANDEZ] Patient Status: [FULL CODE] Diet: [] Pending Orders: [] Pending Results/Labs:[] Pending MD notification:[] Latest Vital Signs: Temperature 97.0 , Pulse 84 , B/P 134 /90 , Respiratory Rate 20 , O2 SAT 94 , Room Air, O2 Flow Rate . Vital Sign Comment: [] EKG Rhythm: AFIB/FLUTTER Rhythm change?: N MD Notified?: N - MD Response: Latest He Fall Score: 20 Fall Risk: Low Risk Safety Measures: Call light Within Reach, Bed Alarm , Side Rails Side Rails x2, Bed position Low and Locked. Fall Precautions: Door Sign Patient Fall Education Report given to [L[facility]OBBS].
--- NOTE | 2020-07-24 07:28 | NUR ---
NURSE NOTES: Report received from Charo RN. Patient seen on rounds, asleep but rousable. Afib- Aflutter on tele monitor. Nurse reports pt had episode of extreme bradycardia this morning (HR 37bpm), but improved with rousal, message was left for Dr. Richey. Pt appears comfortable. PIV on left forearm patent, heparin drip currently on hold and due to restart at new dose of 13u/kg/hr at 0730. Pt is ambulatory and continent. Bed low and locked, siderails up x2, call light placed within reach and instructed to call nurse assistance. Will continue to monitor.
[2020-07-24] MEDS ORDERED: Heparin 25,000u/D5W 500ml 500 ML IV SCH ×3 (07:30→21:50)
[2020-07-24 08:00] VITALS: BP 143/90
[2020-07-24] MEDS: Aspirin EC 81mg tab ORAL SCH (09:12)
[2020-07-24] MEDS: Metoprolol Tartrate 100mg tab ORAL SCH ×2 (09:12→20:25)
--- NOTE | 2020-07-24 09:15 | Internal Med Progress Note ---
Subjective Physician Name Luis Fernando Sow Attending Physician Luis Fernando Sow M.D. Current Medications Medications (Trade) Dose Ordered Sig/Damien Route PRN Reason Start Time Stop Time Status Last Admin Dose Admin Acetaminophen (Tylenol) 650 mg Q4H PRN ORAL Pain Scale (3-5) 07/22/20 05:45 08/21/20 05:44 07/23/20 20:18 Aspirin (Ecotrin) 81 mg DAILY ORAL 07/23/20 09:00 09/06/20 08:59 07/23/20 08:39 Atorvastatin Calcium (Lipitor) 80 mg BEDTIME ORAL 07/22/20 21:00 10/20/20 20:59 07/23/20 20:15 Heparin Sodium/ Dextrose 500 ml @ 15.331 mls/ hr ADJUST PER PROTOCOL IV 07/24/20 07:30 08/23/20 07:29 07/24/20 07:34 Metoprolol Tartrate (Lopressor) 100 mg Q12HR ORAL 07/23/20 10:00 10/20/20 20:59 07/23/20 20:16 Ondansetron HCl (Zofran) 4 mg Q6H PRN IVP Nausea & Vomiting 07/22/20 05:45 08/21/20 05:44 07/22/20 06:50 Allergies: Coded Allergies: No Known Allergies (Unverified , 07/21/20) Constitutional: Reports: weakness All Systems: reviewed and negative except above Subjective bradycardic over night EF 35% chart from [facility] reviewed h/o mitral stenosis s/p valvuloplasty CT abd: Impression: Limited assessment of the GI tract, due to lack of enteric contrast administration No definite acute abdominal or pelvic abnormality Marked cardiomegaly Extensive pulmonary basilar interstitial septal thickening and irregular focal opacities bilaterally. Suspect on the basis of pulmonary edema, given the pre sence of significant cardiomegaly. Infectious etiology is also possible Objective Last Vital Signs Date Time Temp Pulse Resp B/P (MAP) Pulse Ox O2 Delivery O2 Flow Rate FiO2 07/24/20 04:00 97.0 84 20 134/90 (105) 94 07/23/20 21:00 Room Air Laboratory Tests Test 07/23/20 15:30 07/23/20 23:00 07/24/20 05:57 Activated Partial Thromboplast Time 115 SEC (23-33) H 63 SEC (23-33) H 128 SEC (23-33) H Sodium Level 142 MMOL/L (136-145) Potassium Level 3.6 MMOL/L (3.5-5.1) Chloride Level 109 MMOL/L (98-107) H Carbon Dioxide Level 26 MMOL/L (21-32) Anion Gap 7 mmol/L (5-15) Blood Urea Nitrogen 12 mg/dL (7-18) Creatinine 0.7 MG/DL (0.55-1.30) Estimat Glomerular Filtration Rate > 60 mL/min (>60) Glucose Level 102 MG/DL (74-106) Calcium Level 8.7 MG/DL (8.5-10.1) Phosphorus Level 3.6 MG/DL (2.5-4.9) Magnesium Level 1.9 MG/DL (1.8-2.4) Intake and Output 07/23/20 07/24/20 19:00 07:00 Intake Total 450 ml 350 ml Balance 450 ml 350 ml Intake Oral 450 ml 350 ml # Voids 2 3 Objective General appearance: alert, cooperative, no distress, appears stated age Head: Normocephalic, without obvious abnormality, atraumatic Eyes: conjunctivae/corneas clear. PERRL, EOM's intact. Fundi benign Throat: Lips, mucosa, and tongue normal. Teeth and gums normal Neck: supple, symmetrical, trachea midline, no adenopathy, thyroid: not enlarged, symmetric, no tenderness/mass/nodules, no carotid bruit and no JVD Lungs: clear to auscultation bilaterally Heart: tachycardic S1, S2 normal, no murmur, click, rub or gallop Abdomen: soft, non-tender. Bowel sounds normal. No masses, no organomegaly Extremities: extremities normal, atraumatic, no cyanosis or edema Pulses: 2+ and symmetric Skin: Skin color, texture, turgor normal. No rashes or lesions Neurologic: Grossly normal Assessment/Plan Assessment/Plan #Atrial flutter #MONY- improved #abd pain - improved #NSTEMI #h/o mitral stenosis s/p valvuloplasty #HTN #h/o breast cancer #hypokalemia- improved - meto 100mg BID - DC cardizem - asa - statin - echo with EF 35% - cardiology eval - heparin drip - monitor lytes - replete lytes prn - surgery eval for abd pain Luis Fernando Sow M.D. Jul 24, 2020 09:15
--- NOTE | 2020-07-24 10:26 | Pulmonology Progress Note ---
Subjective ROS Limited/Unobtainable: No Interval Events: none major reported per nursing HEENT: Repors: no symptoms Respiratory: Reports: no symptoms Cardiovascular: Reports: no symptoms; Denies: chest pain, palpitations Gastrointestinal/Abdominal: Reports: other - RUQ abd pain improved Allergies: Coded Allergies: No Known Allergies (Unverified , 07/21/20) All Systems: reviewed and negative except above Objective Last 24 Hour Vital Signs Date Time Temp Pulse Resp B/P (MAP) Pulse Ox O2 Delivery O2 Flow Rate FiO2 07/24/20 09:12 81 143/90 07/24/20 09:00 Room Air 07/24/20 08:00 72 07/24/20 08:00 97.1 81 20 143/90 (107) 96 07/24/20 04:00 97.0 84 20 134/90 (105) 94 07/24/20 04:00 76 07/24/20 00:00 76 07/24/20 00:00 97.9 73 20 126/76 (93) 96 07/23/20 21:00 Room Air 07/23/20 20:16 84 136/74 07/23/20 20:00 97.9 74 18 133/92 (106) 97 07/23/20 20:00 88 07/23/20 16:00 70 07/23/20 16:00 97.8 83 18 131/81 (98) 98 07/23/20 12:00 98.4 70 18 119/73 (88) 99 07/23/20 12:00 61 07/23/20 10:33 74 114/81 Intake and Output 07/23/20 07/24/20 19:00 07:00 Intake Total 450 ml 350 ml Balance 450 ml 350 ml Intake Oral 450 ml 350 ml # Voids 2 3 HEENT: atraumatic Respiratory: lungs clear Cardiovascular: normal rate Abdomen: tender - RUQ Laboratory Tests 07/23/20 15:30: Activated Partial Thromboplast Time 115H 07/23/20 23:00: Activated Partial Thromboplast Time 63H 07/24/20 05:57: Activated Partial Thromboplast Time 128H, Sodium Level 142, Potassium Level 3.6, Chloride Level 109H, Carbon Dioxide Level 26, Anion Gap 7, Blood Urea Nitrogen 12, Creatinine 0.7, Estimat Glomerular Filtration Rate > 60, Glucose Level 102, Calcium Level 8.7, Phosphorus Level 3.6, Magnesium Level 1.9 Current Medications Medications (Trade) Dose Ordered Sig/Damien Route PRN Reason Start Time Stop Time Status Last Admin Dose Admin Acetaminophen (Tylenol) 650 mg Q4H PRN ORAL Pain Scale (3-5) 07/22/20 05:45 08/21/20 05:44 07/23/20 20:18 Aspirin (Ecotrin) 81 mg DAILY ORAL 07/23/20 09:00 09/06/20 08:59 07/24/20 09:12 Atorvastatin Calcium (Lipitor) 80 mg BEDTIME ORAL 07/22/20 21:00 10/20/20 20:59 07/23/20 20:15 Heparin Sodium/ Dextrose 500 ml @ 15.331 mls/ hr ADJUST PER PROTOCOL IV 07/24/20 07:30 08/23/20 07:29 07/24/20 07:34 Metoprolol Tartrate (Lopressor) 100 mg Q12HR ORAL 07/23/20 10:00 10/20/20 20:59 07/24/20 09:12 Ondansetron HCl (Zofran) 4 mg Q6H PRN IVP Nausea & Vomiting 07/22/20 05:45 08/21/20 05:44 07/22/20 06:50 Assessment/Plan Assessment/Plan 1. Pulmonary basilar interstitial septal thickening and irregular focal opacities - Suspect pulmonary fibrosis. - Continue oxygen as needed - Recommend outpatient workup for this condition 2. DVT ppx - on heparin 3. Non-STEMI in the absence of renal failure. 2. Atrial fib with RVR 3. h/o mitral stenosis s/p valvuloplasty 4. CHF EF 35%. -Cardiology following The care for this patient was discussed with my supervising physician. Time spent for this case was approximately 31 minutes. Ovidio Sidhu Jul 24, 2020 10:26
--- NOTE | 2020-07-24 10:31 | NUR ---
CASE MANAGEMENT:REVIEW 07/24/20 SI: NSTEMI. AFIB W/RVR. CHF W/EF 35% 97.1 72 20 143/90 96% ON RA TROPONIN(+) 0.079 IS: HEPARIN GTT LOPRESSOR PO Q12 ASA PO QD LIPITOR PO QHS : TELEMETRY STATUS DCP: FROM HOME
--- NOTE | 2020-07-24 10:33 | Surgery Progress Note ---
Surgery Progress Note Subjective Symptoms: improved, pain absent, tolerating diet, passing flatus Objective Last 24 Hour Vital Signs Date Time Temp Pulse Resp B/P (MAP) Pulse Ox O2 Delivery O2 Flow Rate FiO2 07/24/20 09:12 81 143/90 07/24/20 09:00 Room Air 07/24/20 08:00 72 07/24/20 08:00 97.1 81 20 143/90 (107) 96 07/24/20 04:00 97.0 84 20 134/90 (105) 94 07/24/20 04:00 76 07/24/20 00:00 76 07/24/20 00:00 97.9 73 20 126/76 (93) 96 07/23/20 21:00 Room Air 07/23/20 20:16 84 136/74 07/23/20 20:00 97.9 74 18 133/92 (106) 97 07/23/20 20:00 88 07/23/20 16:00 70 07/23/20 16:00 97.8 83 18 131/81 (98) 98 07/23/20 12:00 98.4 70 18 119/73 (88) 99 07/23/20 12:00 61 07/23/20 10:33 74 114/81 I&O Intake and Output 07/23/20 07/24/20 19:00 07:00 Intake Total 450 ml 350 ml Balance 450 ml 350 ml Intake Oral 450 ml 350 ml # Voids 2 3 Cardiovascular: RSR Respiratory: clear Abdomen: soft, flat, non-tender, present bowel sounds, non-distended Extremities: no edema, no tenderness, no cyanosis Laboratory Tests Test 07/23/20 15:30 07/23/20 23:00 07/24/20 05:57 Activated Partial Thromboplast Time 115 SEC (23-33) H 63 SEC (23-33) H 128 SEC (23-33) H Sodium Level 142 MMOL/L (136-145) Potassium Level 3.6 MMOL/L (3.5-5.1) Chloride Level 109 MMOL/L (98-107) H Carbon Dioxide Level 26 MMOL/L (21-32) Anion Gap 7 mmol/L (5-15) Blood Urea Nitrogen 12 mg/dL (7-18) Creatinine 0.7 MG/DL (0.55-1.30) Estimat Glomerular Filtration Rate > 60 mL/min (>60) Glucose Level 102 MG/DL (74-106) Calcium Level 8.7 MG/DL (8.5-10.1) Phosphorus Level 3.6 MG/DL (2.5-4.9) Magnesium Level 1.9 MG/DL (1.8-2.4) Plan Problems: (1) Abdominal pain Assessment & Plan: Abd pain trop elevated no n/v lft's okay no gallstones gb okay gi track okay okay for diet no acute surgical intervention planned will follow with exam and recs thank you Gallbladder is unremarkable, without stones, wall thickening, nor pericholecystic fluid. Sonographic Gómez's sign is negative. Common bile duct measures 2 mm in diameter. No intrahepatic biliary ductal dilatation. Liver demonstrates normal echogenicity, no focal abnormality. Portal vein and hepatic veins are patent. Pancreas is unremarkable. Spleen is unremarkable. Left kidney measures 10.1 cm in length. Right kidney measures 9.9 cm length. Both kidneys demonstrate normal echogenicity. There is no hydronephrosis. Echogenic foci within the left renal sinus are probably artifactual, as no calculi are demonstrated on recent CT scan. Unremarkable inferior vena cava. Non-aneurysmal abdominal aorta . Impression: Negative for gallstones or dilated bile ducts or other significant abnormalityThere are colonic diverticula. No evidence of diverticulitis. The appendix is normal. No small bowel distention. No free or loculated intraperitoneal gas or fluid is evident. The distal esophagus, stomach, duodenum are unremarkable. Lack of IV contrast limits assessment of the solid organs. The liver, gallbladder, bile ducts, pancreas, spleen, adrenals, kidneys are all unremarkable. No renal or ureteral calculi, hydronephrosis, or hydroureter. No pelvic mass or adenopathy. Unremarkable bladder. The included lung bases demonstrate extensive interlobular interstitial septal thickening, as well as irregular focal opacities. The heart is markedly enlarged. 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 This appears normal anteriorly, however. Impression: Limited assessment of the GI tract, due to lack of enteric contrast administration No definite acute abdominal or pelvic abnormality Marked cardiomegaly Extensive pulmonary basilar interstitial septal thickening and irregular focal opacities bilaterally. Suspect on the basis of pulmonary edema, given the presence of significant cardiomegaly. 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
[2020-07-24 12:00] VITALS: BP 121/81
--- NOTE | 2020-07-24 14:14 | Cardiac Electrophysiology PN ---
Assessment/Plan Assessment/Plan 1. [id number] myocardial infarction with troponin of 0.11 and 0.13 in the absence of renal failure. Could be due to patient's atrial flutter with rapid ventricular response. On Aspirin, Lopressor and Lipitor EF 35-40% 2. Atrial fib with RVR,. On Cardizem drip heart rate improved. Now on metoprolol 100 q12. Resume Coumadin per Rx 3. Mitral stenosis and S/P Mitral valvuloplasty at [facility] in 08/2017. Echo No significant MR or MS now 4. CHF EF 35%. On Lopressor 100 po bid. Add Lisinopril 10 and Lasix 40 iv daily 5. For the patient's abdominal pain, the patient already underwent a CT of the abdomen and pelvis as well as abdominal ultrasound. Further evaluation by GI and Surgery. 6. The patient has a history of right breast cancers/p Lumpectomy Subjective Subjective Remained in atrial flutter in 90s. No CP or SOB.Reviewed outside records from [facility]. Had Mitral Valvuloplasty in 08/2017 and PAF Objective Last 24 Hour Vital Signs Date Time Temp Pulse Resp B/P (MAP) Pulse Ox O2 Delivery O2 Flow Rate FiO2 07/24/20 12:00 75 07/24/20 12:00 96.0 73 18 121/81 (94) 99 07/24/20 09:12 81 143/90 07/24/20 09:00 Room Air 07/24/20 08:00 72 07/24/20 08:00 97.1 81 20 143/90 (107) 96 07/24/20 04:00 97.0 84 20 134/90 (105) 94 07/24/20 04:00 76 07/24/20 00:00 76 07/24/20 00:00 97.9 73 20 126/76 (93) 96 07/23/20 21:00 Room Air 07/23/20 20:16 84 136/74 07/23/20 20:00 97.9 74 18 133/92 (106) 97 07/23/20 20:00 88 07/23/20 16:00 70 07/23/20 16:00 97.8 83 18 131/81 (98) 98 Intake and Output 07/23/20 07/24/20 19:00 07:00 Intake Total 450 ml 350 ml Balance 450 ml 350 ml Intake Oral 450 ml 350 ml # Voids 2 3 Laboratory Tests Test 07/23/20 15:30 07/23/20 23:00 07/24/20 05:57 07/24/20 13:56 Activated Partial Thromboplast Time 115 SEC (23-33) H 63 SEC (23-33) H 128 SEC (23-33) H Pending Sodium Level 142 MMOL/L (136-145) Potassium Level 3.6 MMOL/L (3.5-5.1) Chloride Level 109 MMOL/L (98-107) H Carbon Dioxide Level 26 MMOL/L (21-32) Anion Gap 7 mmol/L (5-15) Blood Urea Nitrogen 12 mg/dL (7-18) Creatinine 0.7 MG/DL (0.55-1.30) Estimat Glomerular Filtration Rate > 60 mL/min (>60) Glucose Level 102 MG/DL (74-106) Calcium Level 8.7 MG/DL (8.5-10.1) Phosphorus Level 3.6 MG/DL (2.5-4.9) Magnesium Level 1.9 MG/DL (1.8-2.4) Objective HEAD AND NECK: No JVD. LUNGS: Coarse rhonchi. CARDIOVASCULAR: Regular S1 and S2 with no gallop or murmur. ABDOMEN: Soft. EXTREMITIES: No pitting edema. Phil Richey MD Jul 24, 2020 14:14
[2020-07-24] MEDS ORDERED: Heparin 5000 units/ml inj IV SCH ×2 (14:25→21:49)
[2020-07-24 14:47] LABS: INR 1.3 (0.9-1.1)
[2020-07-24 16:00] VITALS: BP 122/77
[2020-07-24] MEDS ORDERED: Warfarin Sodium 5mg ORAL SCH (17:00)
--- NOTE | 2020-07-24 19:27 | NUR ---
NURSE HAND-OFF REPORT: Important Events on Shift: Started on Coumadin, still on Heparin drip at 15u/kg/hr until INR therapeutic goal reached per pharmacy, next timed PT draw at 2044H; no signs of bleeding Patient Status: Stable Diet: Cardiac Pending Orders: N Pending Results/Labs: Timed PT draw Pending MD notification: N Latest Vital Signs: Temperature 96.0 , Pulse 85 , B/P 122 /77 , Respiratory Rate 17 , O2 SAT 99 , Room Air, O2 Flow Rate . Vital Sign Comment: EKG Rhythm: Atrial Fibrillation Rhythm change?: N MD Notified?: N - MD Response: Latest He Fall Score: 20 Fall Risk: Low Risk Safety Measures: Call light Within Reach, Bed Alarm , Side Rails Side Rails x2, Bed position Low and Locked. Fall Precautions: Door Sign Patient Fall Education Report given to Charlotte MADISON.
--- NOTE | 2020-07-24 19:58 | NUR ---
NURSE NOTES: Received patient in bed, awake, alert, oriented x4, Faroese speaking, ambulatory with a steady gate, IV site is clean dry and intact, currently on heparin drip 15/u/kg/hr, with timed draw at 2044. Call light is within reach, bed is lowered, locked, alarm is on, will continue to monitor for comfort and safety.
[2020-07-24 20:00] VITALS: BP 158/78
[2020-07-24] MEDS: Atorvastatin 80mg tab ORAL SCH (20:25)
--- NOTE | 2020-07-24 22:11 | NUR ---
PTT results are 56 at 2146, per pharmacy and heparin protocol administered bolus of 2500 units of heparin, increased current rate from 15 to 17 units/kg/hr. Timed PTT draw is scheduled at 0400 on 07/25/2020.
[2020-07-25] VITALS: BP 129/74
[2020-07-25 04:00] VITALS: BP 141/78
[2020-07-25 04:55] LABS: INR 1.3 (0.9-1.1)
[2020-07-25 05:07] LABS: ANION GAP 9 mmol/L (5-15); BLOOD UREA NITROGEN 10 mg/dL (7-18); CALCIUM 9.2 MG/DL (8.5-10.1); CARBON DIOXIDE 26 MMOL/L (21-32); CHLORIDE 108 MMOL/L (98-107); CREATININE 0.7 MG/DL (0.55-1.30); POTASSIUM 3.6 MMOL/L (3.5-5.1); SODIUM 143 MMOL/L (136-145)
--- NOTE | 2020-07-25 05:14 | NUR ---
PTT results are 107, per pharmacy and heparin protocol, hold heparin drip for 30 min, then restart at 14 u/kg/hr, redraw PTT 6 hours after new drip implemented.
[2020-07-25] MEDS ORDERED: Heparin 25,000u/D5W 500ml 500 ML IV SCH (05:45)
--- NOTE | 2020-07-25 07:31 | NUR ---
NURSE HAND-OFF REPORT: Important Events on Shift: heparin drip at 14u/kg/hr, next PTT draw is sheduled at 1200. Patient Status: full code Diet:cardiac Pending Orders: Pending Results/Labs: Pending MD notification: Latest Vital Signs: Temperature 98.7 , Pulse 71 , B/P 141 /78 , Respiratory Rate 18 , O2 SAT 95 , Room Air, O2 Flow Rate . Vital Sign Comment: EKG Rhythm: Atrial Fibrillation Rhythm change?: N MD Notified?: N - MD Response: Latest He Fall Score: 20 Fall Risk: Low Risk Safety Measures: Call light Within Reach, Bed Alarm , Side Rails Side Rails x2, Bed position Low and Locked. Fall Precautions: Door Sign Patient Fall Education Report given to Mariela MADISON
[2020-07-25 08:00] VITALS: BP 129/81
--- NOTE | 2020-07-25 08:22 | NUR ---
NURSE NOTES: Received patient report from [facility]. Patient is AO x4 awake and able to make needs known. Patient shows no signs of distress or pain. Patient is connected to Heparin drip running at 14 units/kg/hr. IV site is intact and patent. There are no signs of erythema, infiltration, or bleeding. Patient is on room air and shows no signs of respiratory distress. Bed is in the lowest position, call light is within reach, side rails up x3. Will continue to monitor.
[2020-07-25] MEDS: Aspirin EC 81mg tab ORAL SCH (08:42)
[2020-07-25] MEDS: Metoprolol Tartrate 100mg tab ORAL SCH ×2 (08:42→20:57)
[2020-07-25] MEDS: Lisinopril 10mg tab ORAL SCH (08:42)
--- NOTE | 2020-07-25 10:33 | Pulmonology Progress Note ---
Subjective ROS Limited/Unobtainable: No Interval Events: none major reported per nursing HEENT: Repors: no symptoms Respiratory: Reports: no symptoms Cardiovascular: Reports: no symptoms; Denies: chest pain, palpitations Gastrointestinal/Abdominal: Reports: other - RUQ abd pain improved Allergies: Coded Allergies: No Known Allergies (Unverified , 07/21/20) All Systems: reviewed and negative except above Objective Last 24 Hour Vital Signs Date Time Temp Pulse Resp B/P (MAP) Pulse Ox O2 Delivery O2 Flow Rate FiO2 07/25/20 08:42 129/81 07/25/20 08:42 87 129/81 07/25/20 08:00 96.8 87 18 129/81 (97) 98 07/25/20 04:46 98.7 07/25/20 04:00 97.8 98 18 141/78 (99) 95 07/25/20 04:00 71 07/25/20 00:00 98.7 74 18 129/74 (92) 96 07/24/20 21:28 Room Air 07/24/20 20:25 92 154/82 07/24/20 20:00 98.7 92 18 158/78 (104) 98 07/24/20 20:00 97 07/24/20 16:59 85 07/24/20 16:00 96.0 81 17 122/77 (92) 99 07/24/20 12:00 75 07/24/20 12:00 96.0 73 18 121/81 (94) 99 Intake and Output 07/24/20 07/25/20 19:00 07:00 Intake Total 600 ml Balance 600 ml Intake Oral 600 ml # Voids 3 HEENT: atraumatic Respiratory: lungs clear Cardiovascular: normal rate Abdomen: tender - RUQ Laboratory Tests 07/24/20 13:56: Prothrombin Time 14.0H, Prothromb Time International Ratio 1.3H, Activated Partial Thromboplast Time 57H 07/24/20 20:55: Activated Partial Thromboplast Time 56H 07/25/20 04:00: Prothrombin Time 13.7H, Prothromb Time International Ratio 1.3H, Activated Partial Thromboplast Time 107H, Sodium Level 143, Potassium Level 3.6, Chloride Level 108H, Carbon Dioxide Level 26, Anion Gap 9, Blood Urea Nitrogen 10, Creatinine 0.7, Estimat Glomerular Filtration Rate > 60, Glucose Level 97, Calcium Level 9.2, Pro-B-Type Natriuretic Peptide 4875H Current Medications Medications (Trade) Dose Ordered Sig/Damien Route PRN Reason Start Time Stop Time Status Last Admin Dose Admin Acetaminophen (Tylenol) 650 mg Q4H PRN ORAL Pain Scale (3-5) 07/22/20 05:45 08/21/20 05:44 07/25/20 04:14 Aspirin (Ecotrin) 81 mg DAILY ORAL 07/23/20 09:00 09/06/20 08:59 07/25/20 08:42 Atorvastatin Calcium (Lipitor) 80 mg BEDTIME ORAL 07/22/20 21:00 10/20/20 20:59 07/24/20 20:25 Furosemide (Lasix) 40 mg DAILY IV 07/25/20 09:00 08/24/20 08:59 07/25/20 08:42 Heparin Sodium/ Dextrose 500 ml @ 16.511 mls/ hr ADJUST PER PROTOCOL IV 07/25/20 05:45 08/24/20 05:44 07/25/20 05:46 Lisinopril (ZestriL) 10 mg DAILY ORAL 07/25/20 09:00 08/24/20 08:59 07/25/20 08:42 Metoprolol Tartrate (Lopressor) 100 mg Q12HR ORAL 07/23/20 10:00 10/20/20 20:59 07/25/20 08:42 Ondansetron HCl (Zofran) 4 mg Q6H PRN IVP Nausea & Vomiting 07/22/20 05:45 08/21/20 05:44 07/22/20 06:50 Warfarin Sodium (Coumadin per pharmacy) 1 ea DAILY PRN MISC Per rx protocol 07/24/20 14:15 08/23/20 14:14 Warfarin Sodium (Coumadin) 7.5 mg COUMADIN ORAL 07/25/20 17:00 07/25/20 19:00 Assessment/Plan Assessment/Plan Assessment/Plan 1. Pulmonary basilar interstitial septal thickening and irregular focal opacities - Suspect pulmonary fibrosis. - On room air 98% - Recommend outpatient workup for this condition 2. DVT ppx - on heparin PT 15.2, INR 1.4 3. Non-STEMI in the absence of renal failure. 2. Atrial fib with RVR 3. h/o mitral stenosis s/p valvuloplasty 4. CHF EF 35%. -Cardiology following 5. Abd US 07/21/20 No definite acute abdominal or pelvic abnormality The care for this patient was discussed with my supervising physician. Ang Kenny NP Jul 25, 2020 10:33
--- NOTE | 2020-07-25 10:40 | Cardiac Electrophysiology PN ---
Assessment/Plan Assessment/Plan 1. NSTEMI with troponin of 0.11 and 0.13 in the absence of renal failure. Could be due to atrial flutter with rapid ventricular response. On Aspirin, Lopressor and Lipitor EF 35-40% 2. Atrial fib with RVR,. On Cardizem drip heart rate improved. Now on metoprolol 100 q12, heparin and Coumadin per Rx INR today still 1.3 3. Mitral stenosis and S/P Mitral valvuloplasty at [facility] in 08/2017. Echo > No significant MR or MS now 4. CHF EF 35%. On Lopressor 100 po bid, Lisinopril 10 and Lasix 40 iv daily Diuresing well 5. For the patient's abdominal pain, the patient already underwent a CT of the abdomen and pelvis as well as abdominal ultrasound. Further evaluation by GI and Surgery. 6. History of right breast cancers/p Lumpectomy Subjective Subjective Remained in atrial flutter/fib in 90s. No CP or SOB.Reviewed outside records from [facility]. Had Mitral Valvuloplasty in 08/2017 and had atrial fib even then On heparin and Coumadin per pharmacy Diuresing well on iv Lasix for EF 35% Objective Last 24 Hour Vital Signs Date Time Temp Pulse Resp B/P (MAP) Pulse Ox O2 Delivery O2 Flow Rate FiO2 07/25/20 08:42 129/81 07/25/20 08:42 87 129/81 07/25/20 08:00 96.8 87 18 129/81 (97) 98 07/25/20 04:46 98.7 07/25/20 04:00 97.8 98 18 141/78 (99) 95 07/25/20 04:00 71 07/25/20 00:00 98.7 74 18 129/74 (92) 96 07/24/20 21:28 Room Air 07/24/20 20:25 92 154/82 07/24/20 20:00 98.7 92 18 158/78 (104) 98 07/24/20 20:00 97 07/24/20 16:59 85 07/24/20 16:00 96.0 81 17 122/77 (92) 99 07/24/20 12:00 75 07/24/20 12:00 96.0 73 18 121/81 (94) 99 Intake and Output 07/24/20 07/25/20 19:00 07:00 Intake Total 600 ml Balance 600 ml Intake Oral 600 ml # Voids 3 Laboratory Tests Test 07/24/20 13:56 07/24/20 20:55 07/25/20 04:00 Prothrombin Time 14.0 SEC (9.30-11.50) H 13.7 SEC (9.30-11.50) H Prothromb Time International Ratio 1.3 (0.9-1.1) H 1.3 (0.9-1.1) H Activated Partial Thromboplast Time 57 SEC (23-33) H 56 SEC (23-33) H 107 SEC (23-33) H Sodium Level 143 MMOL/L (136-145) Potassium Level 3.6 MMOL/L (3.5-5.1) Chloride Level 108 MMOL/L (98-107) H Carbon Dioxide Level 26 MMOL/L (21-32) Anion Gap 9 mmol/L (5-15) Blood Urea Nitrogen 10 mg/dL (7-18) Creatinine 0.7 MG/DL (0.55-1.30) Estimat Glomerular Filtration Rate > 60 mL/min (>60) Glucose Level 97 MG/DL (74-106) Calcium Level 9.2 MG/DL (8.5-10.1) Pro-B-Type Natriuretic Peptide 4875 pg/mL (0-125) H Objective HEAD AND NECK: No JVD. LUNGS: Coarse rhonchi. CARDIOVASCULAR: Regular S1 and S2 with no gallop or murmur. ABDOMEN: Soft. EXTREMITIES: No pitting edema. Phil Richey MD Jul 25, 2020 10:40
[2020-07-25 12:00] VITALS: BP 126/85
[2020-07-25] MEDS ORDERED: Heparin 5000 units/ml inj IV SCH (13:30)
[2020-07-25] MEDS: Heparin 25,000u/D5W 500ml 500 ML IV SCH ×2 (13:30→17:41)
--- NOTE | 2020-07-25 14:41 | Internal Med Progress Note ---
Subjective Physician Name Luis Fernando Sow Attending Physician Luis Fernando Sow M.D. Current Medications Medications (Trade) Dose Ordered Sig/Damien Route PRN Reason Start Time Stop Time Status Last Admin Dose Admin Acetaminophen (Tylenol) 650 mg Q4H PRN ORAL Pain Scale (3-5) 07/22/20 05:45 08/21/20 05:44 07/25/20 04:14 Aspirin (Ecotrin) 81 mg DAILY ORAL 07/23/20 09:00 09/06/20 08:59 07/25/20 08:42 Atorvastatin Calcium (Lipitor) 80 mg BEDTIME ORAL 07/22/20 21:00 10/20/20 20:59 07/24/20 20:25 Furosemide (Lasix) 40 mg DAILY IV 07/25/20 09:00 08/24/20 08:59 07/25/20 08:42 Heparin Sodium (Porcine) (Heparin 5000 units/ml) 2,500 units ONCE IV 07/25/20 13:30 07/25/20 15:00 07/25/20 13:31 Heparin Sodium/ Dextrose 500 ml @ 18.869 mls/ hr ADJUST PER PROTOCOL IV 07/25/20 13:30 08/24/20 13:29 07/25/20 13:30 Lisinopril (ZestriL) 10 mg DAILY ORAL 07/25/20 09:00 08/24/20 08:59 07/25/20 08:42 Metoprolol Tartrate (Lopressor) 100 mg Q12HR ORAL 07/23/20 10:00 10/20/20 20:59 07/25/20 08:42 Ondansetron HCl (Zofran) 4 mg Q6H PRN IVP Nausea & Vomiting 07/22/20 05:45 08/21/20 05:44 07/22/20 06:50 Warfarin Sodium (Coumadin per pharmacy) 1 ea DAILY PRN MISC Per rx protocol 07/24/20 14:15 08/23/20 14:14 Warfarin Sodium (Coumadin) 7.5 mg COUMADIN ORAL 07/25/20 17:00 07/25/20 19:00 Allergies: Coded Allergies: No Known Allergies (Unverified , 07/21/20) ROS Limited/Unobtainable: No Constitutional: Reports: weakness HEENT: Denies: no symptoms, eye pain, blurred vision, tearing, double vision, ear pain, ear discharge, nose pain, nose congestion, throat pain, throat swelling, mouth pain, mouth swelling, other Cardiovascular: Denies: no symptoms, chest pain, edema, irregular heart rate, lightheadedness, palpitations, syncope, other Respiratory: Denies: no symptoms, cough, orthopnea, shortness of breath, SOB with excertion, SOB at rest, sputum, stridor, wheezing, other Gastrointestinal/Abdominal: Denies: no symptoms, abdomen distended, abdominal pain, black stools, tarry stools, blood in stool, constipated, diarrhea, difficulty swallowing, nausea, poor appetite, poor fluid intake, rectal bleeding, vomiting, other Genitourinary: Denies: no symptoms, burning, discharge, frequency, flank pain, hematuria, incontinence, pain, urgency, other Neurologic/Psychiatric: Denies: no symptoms, anxiety, depressed, emotional problems, headache, numbness, paresthesia, pre-existing deficit, seizure, tingling, tremors, weakness, other Subjective started on lasix lisniopril added EF 35% chart from [facility] reviewed h/o mitral stenosis s/p valvuloplasty CT abd: Impression: Limited assessment of the GI tract, due to lack of enteric contrast administration No definite acute abdominal or pelvic abnormality Marked cardiomegaly Extensive pulmonary basilar interstitial septal thickening and irregular focal opacities bilaterally. Suspect on the basis of pulmonary edema, given the p resence of significant cardiomegaly. Infectious etiology is also possible Objective Last Vital Signs Date Time Temp Pulse Resp B/P (MAP) Pulse Ox O2 Delivery O2 Flow Rate FiO2 07/25/20 12:00 75 07/25/20 12:00 98.6 20 126/85 (99) 97 07/25/20 09:00 Room Air Laboratory Tests Test 07/24/20 20:55 07/25/20 04:00 07/25/20 12:02 Activated Partial Thromboplast Time 56 SEC (23-33) H 107 SEC (23-33) H 61 SEC (23-33) H Prothrombin Time 13.7 SEC (9.30-11.50) H Prothromb Time International Ratio 1.3 (0.9-1.1) H Sodium Level 143 MMOL/L (136-145) Potassium Level 3.6 MMOL/L (3.5-5.1) Chloride Level 108 MMOL/L (98-107) H Carbon Dioxide Level 26 MMOL/L (21-32) Anion Gap 9 mmol/L (5-15) Blood Urea Nitrogen 10 mg/dL (7-18) Creatinine 0.7 MG/DL (0.55-1.30) Estimat Glomerular Filtration Rate > 60 mL/min (>60) Glucose Level 97 MG/DL (74-106) Calcium Level 9.2 MG/DL (8.5-10.1) Pro-B-Type Natriuretic Peptide 4875 pg/mL (0-125) H Intake and Output 07/24/20 07/25/20 19:00 07:00 Intake Total 600 ml Balance 600 ml Intake Oral 600 ml # Voids 3 Objective General appearance: alert, cooperative, no distress, appears stated age Head: Normocephalic, without obvious abnormality, atraumatic Eyes: conjunctivae/corneas clear. PERRL, EOM's intact. Fundi benign Throat: Lips, mucosa, and tongue normal. Teeth and gums normal Neck: supple, symmetrical, trachea midline, no adenopathy, thyroid: not enlarged, symmetric, no tenderness/mass/nodules, no carotid bruit and no JVD Lungs: clear to auscultation bilaterally Heart: tachycardic S1, S2 normal, no murmur, click, rub or gallop Abdomen: soft, non-tender. Bowel sounds normal. No masses, no organomegaly Extremities: extremities normal, atraumatic, no cyanosis or edema Pulses: 2+ and symmetric Skin: Skin color, texture, turgor normal. No rashes or lesions Neurologic: Grossly normal Assessment/Plan Assessment/Plan #Atrial flutter #MONY- improved #abd pain - improved #NSTEMI #h/o mitral stenosis s/p valvuloplasty #HTN #h/o breast cancer #hypokalemia- improved - lasix 40 Iv daily - lisinopril 10mg daily - metop 100mg BID - DC cardizem - asa - statin - echo with EF 35% - cardiology eval - heparin drip - monitor lytes - replete lytes prn - surgery eval for abd pain Luis Fernando Sow M.D. Jul 25, 2020 14:41
--- NOTE | 2020-07-25 15:55 | NUR ---
CASE MANAGEMENT:REVIEW 07/25/20 SI: NSTEMI. AFIB/FLUTTER W/RVR. CHF W/EF 35% 98.6 74 20 126/85 97% ON RA BNP+4875 IS: HEPARIN GTT COUMADIN 7.5MG PO IV LASIX QD LISINOPRIL PO QD LOPRESSOR PO Q12 ASA PO QD LIPITOR PO QHS : TELEMETRY STATUS DCP: FROM HOME
[2020-07-25 16:00] VITALS: BP 113/75
--- NOTE | 2020-07-25 16:48 | Surgery Progress Note ---
Surgery Progress Note Subjective Symptoms: improved Objective Last 24 Hour Vital Signs Date Time Temp Pulse Resp B/P (MAP) Pulse Ox O2 Delivery O2 Flow Rate FiO2 07/25/20 12:00 75 07/25/20 12:00 98.6 74 20 126/85 (99) 97 07/25/20 09:00 Room Air 07/25/20 08:42 129/81 07/25/20 08:42 87 129/81 07/25/20 08:00 90 07/25/20 08:00 96.8 87 18 129/81 (97) 98 07/25/20 04:46 98.7 07/25/20 04:00 97.8 98 18 141/78 (99) 95 07/25/20 04:00 71 07/25/20 00:00 98.7 74 18 129/74 (92) 96 07/24/20 21:28 Room Air 07/24/20 20:25 92 154/82 07/24/20 20:00 98.7 92 18 158/78 (104) 98 07/24/20 20:00 97 07/24/20 16:59 85 I&O Intake and Output 07/24/20 07/25/20 19:00 07:00 Intake Total 600 ml Balance 600 ml Intake Oral 600 ml # Voids 3 Cardiovascular: RSR Respiratory: clear Abdomen: soft, flat, non-tender, present bowel sounds Extremities: no edema, no tenderness, no cyanosis Laboratory Tests Test 07/24/20 20:55 07/25/20 04:00 07/25/20 12:02 Activated Partial Thromboplast Time 56 SEC (23-33) H 107 SEC (23-33) H 61 SEC (23-33) H Prothrombin Time 13.7 SEC (9.30-11.50) H Prothromb Time International Ratio 1.3 (0.9-1.1) H Sodium Level 143 MMOL/L (136-145) Potassium Level 3.6 MMOL/L (3.5-5.1) Chloride Level 108 MMOL/L (98-107) H Carbon Dioxide Level 26 MMOL/L (21-32) Anion Gap 9 mmol/L (5-15) Blood Urea Nitrogen 10 mg/dL (7-18) Creatinine 0.7 MG/DL (0.55-1.30) Estimat Glomerular Filtration Rate > 60 mL/min (>60) Glucose Level 97 MG/DL (74-106) Calcium Level 9.2 MG/DL (8.5-10.1) Pro-B-Type Natriuretic Peptide 4875 pg/mL (0-125) H Plan Problems: (1) Abdominal pain Assessment & Plan: Abd pain trop elevated no n/v lft's okay no gallstones gb okay gi track okay okay for diet no acute surgical intervention planned will follow with exam and recs thank you Gallbladder is unremarkable, without stones, wall thickening, nor pericholecystic fluid. Sonographic Gómez's sign is negative. Common bile duct measures 2 mm in diameter. No intrahepatic biliary ductal dilatation. Liver demonstrates normal echogenicity, no focal abnormality. Portal vein and hepatic veins are patent. Pancreas is unremarkable. Spleen is unremarkable. Left kidney measures 10.1 cm in length. Right kidney measures 9.9 cm length. Both kidneys demonstrate normal echogenicity. There is no hydronephrosis. Echogenic foci within the left renal sinus are probably artifactual, as no calculi are demonstrated on recent CT scan. Unremarkable inferior vena cava. Non-aneurysmal abdominal aorta . Impression: Negative for gallstones or dilated bile ducts or other significant abnormalityThere are colonic diverticula. No evidence of diverticulitis. The appendix is normal. No small bowel distention. No free or loculated intraperitoneal gas or fluid is evident. The distal esophagus, stomach, duodenum are unremarkable. Lack of IV contrast limits assessment of the solid organs. The liver, gallbladder, bile ducts, pancreas, spleen, adrenals, kidneys are all unremarkable. No renal or ureteral calculi, hydronephrosis, or hydroureter. No pelvic mass or adenopathy. Unremarkable bladder. The included lung bases demonstrate extensive interlobular interstitial septal thickening, as well as irregular focal opacities. The heart is markedly enlarged. 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 This appears normal anteriorly, however. Impression: Limited assessment of the GI tract, due to lack of enteric contrast administration No definite acute abdominal or pelvic abnormality Marked cardiomegaly Extensive pulmonary basilar interstitial septal thickening and irregular focal opacities bilaterally. Suspect on the basis of pulmonary edema, given the presence of significant cardiomegaly. 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
[2020-07-25] MEDS ORDERED: Warfarin Sod 5 MG, Warfarin Sod 2.5 MG ORAL SCH ×2 (17:00)
--- NOTE | 2020-07-25 19:36 | NUR ---
NURSE HAND-OFF REPORT: Important Events on Shift:[PTT drawn at 1930. ] Patient Status: [Full code] Diet: [cardiac] Pending Orders: [] Pending Results/Labs:[] Pending MD notification:[] Latest Vital Signs: Temperature 98.2 , Pulse 81 , B/P 113 /75 , Respiratory Rate 18 , O2 SAT 98 , Room Air, O2 Flow Rate . Vital Sign Comment: [] EKG Rhythm: Atrial Fibrillation Rhythm change?: N MD Notified?: N - MD Response: Latest He Fall Score: 20 Fall Risk: Low Risk Safety Measures: Call light Within Reach, Bed Alarm , Side Rails Side Rails x2, Bed position Low and Locked. Fall Precautions: Door Sign Patient Fall Education Report given to [LOS Nunez].
--- NOTE | 2020-07-25 19:41 | NUR ---
NURSE NOTES: Patient received from Mariela MADISON. Patient is alert and oriented x4. No s/s of respiratory distress. Breathing unlabored. saturating well on room air. IV site patent and intact on Left FA 20G running Heparin at 16u/kg/hr per protocol and per pharmacy. Bed in lowest position and locked. Call light and bedside table within reach.
[2020-07-25 20:00] VITALS: BP 140/88
[2020-07-25] MEDS: Atorvastatin 80mg tab ORAL SCH (20:57)
--- NOTE | 2020-07-25 22:00 | NUR ---
NURSE NOTES: Patient's PTT at 75 within normal range and goal. No change in rate per protocol. Called and informed pipeline, no cahnge in rate. PTT tomorrow morning.
[2020-07-26] VITALS: BP 138/89
[2020-07-26 04:00] VITALS: BP 128/85
--- NOTE | 2020-07-26 06:36 | NUR ---
NURSE HAND-OFF REPORT: Important Events on Shift:[No change in rate for Heparin Drip. PTT 75. next PTT draw today @ 8am] Patient Status: [FC, stable, a&o x4] Diet: [Cardiac diet] Pending Orders: [] Pending Results/Labs:[] Pending MD notification:[] Latest Vital Signs: Temperature 98.9 , Pulse 85 , B/P 128 /85 , Respiratory Rate 18 , O2 SAT 97 , Room Air, O2 Flow Rate . Vital Sign Comment: [] EKG Rhythm: Afib/Aflutter Rhythm change?: N MD Notified?: N - MD Response: Latest He Fall Score: 20 Fall Risk: Low Risk Safety Measures: Call light Within Reach, Bed Alarm , Side Rails Side Rails x2, Bed position Low and Locked. Fall Precautions: Door Sign Patient Fall Education Report given to [].
--- NOTE | 2020-07-26 07:25 | NUR ---
NURSE NOTES: Received patient in bed. Awake, A/O x4. On room air, respirations unlabored. Patient denies pain. Iv in the Left forearm, infusing IVF as ordered. Bed low and locked, side rails up x2, call light within reach with return demonstration.
--- NOTE | 2020-07-26 07:33 | NUR ---
HAND-OFF: Report given to [Zach MADISON].
[2020-07-26 08:00] VITALS: BP 124/82
[2020-07-26] MEDS: Aspirin EC 81mg tab ORAL SCH (08:24)
[2020-07-26] MEDS: Metoprolol Tartrate 100mg tab ORAL SCH ×2 (08:25→20:22)
[2020-07-26] MEDS: Lisinopril 10mg tab ORAL SCH (08:25)
[2020-07-26 08:34] LABS: INR 1.4 (0.9-1.1)
[2020-07-26 10:00] LABS: ANION GAP 13 mmol/L (5-15); BLOOD UREA NITROGEN 13 mg/dL (7-18); CALCIUM 9.9 MG/DL (8.5-10.1); CARBON DIOXIDE 24 MMOL/L (21-32); CHLORIDE 103 MMOL/L (98-107); CREATININE 0.8 MG/DL (0.55-1.30); SODIUM 140 MMOL/L (136-145)
--- NOTE | 2020-07-26 10:46 | Surgery Progress Note ---
Surgery Progress Note Subjective Additional Comments no acute events Objective Last 24 Hour Vital Signs Date Time Temp Pulse Resp B/P (MAP) Pulse Ox O2 Delivery O2 Flow Rate FiO2 07/26/20 09:00 Room Air 07/26/20 08:25 124/82 07/26/20 08:25 102 124/82 07/26/20 08:00 93 07/26/20 08:00 98.2 102 18 124/82 (96) 98 07/26/20 04:00 75 07/26/20 04:00 98.9 85 18 128/85 (99) 97 07/26/20 00:00 99.0 89 18 138/89 (105) 96 07/25/20 23:55 77 07/25/20 21:00 Room Air 07/25/20 20:57 94 140/88 07/25/20 20:00 99.5 94 18 140/88 (105) 97 07/25/20 20:00 88 07/25/20 16:00 98.2 75 18 113/75 (88) 98 07/25/20 16:00 81 07/25/20 12:00 75 07/25/20 12:00 98.6 74 20 126/85 (99) 97 I&O Intake and Output 07/25/20 07/26/20 19:00 07:00 Intake Total 444.906 ml 360 ml Balance 444.906 ml 360 ml Intake Oral 360 ml 360 ml IV Total 84.906 ml # Voids 4 3 Cardiovascular: RSR Respiratory: clear Abdomen: soft, non-tender, present bowel sounds Extremities: no edema, no tenderness, no cyanosis Laboratory Tests Test 07/25/20 12:02 07/25/20 19:45 07/26/20 07:53 Activated Partial Thromboplast Time 61 SEC (23-33) H 75 SEC (23-33) H 81 SEC (23-33) H Prothrombin Time 15.2 SEC (9.30-11.50) H Prothromb Time International Ratio 1.4 (0.9-1.1) H Sodium Level 140 MMOL/L (136-145) Potassium Level 4.0 MMOL/L (3.5-5.1) Chloride Level 103 MMOL/L (98-107) Carbon Dioxide Level 24 MMOL/L (21-32) Anion Gap 13 mmol/L (5-15) Blood Urea Nitrogen 13 mg/dL (7-18) Creatinine 0.8 MG/DL (0.55-1.30) Estimat Glomerular Filtration Rate > 60 mL/min (>60) Glucose Level 157 MG/DL (74-106) H Calcium Level 9.9 MG/DL (8.5-10.1) Magnesium Level 2.0 MG/DL (1.8-2.4) Pro-B-Type Natriuretic Peptide 2276 pg/mL (0-125) H Plan Problems: (1) Abdominal pain Assessment & Plan: Abd pain trop elevated no n/v lft's okay no gallstones gb okay gi track okay okay for diet no acute surgical intervention planned will follow with exam and recs thank you Gallbladder is unremarkable, without stones, wall thickening, nor pericholecystic fluid. Sonographic Gómez's sign is negative. Common bile duct measures 2 mm in diameter. No intrahepatic biliary ductal dilatation. Liver demonstrates normal echogenicity, no focal abnormality. Portal vein and hepatic veins are patent. Pancreas is unremarkable. Spleen is unremarkable. Left kidney measures 10.1 cm in length. Right kidney measures 9.9 cm length. Both kidneys demonstrate normal echogenicity. There is no hydronephrosis. Echogenic foci within the left renal sinus are probably artifactual, as no calculi are demonstrated on recent CT scan. Unremarkable inferior vena cava. Non-aneurysmal abdominal aorta . Impression: Negative for gallstones or dilated bile ducts or other significant abnormalityThere are colonic diverticula. No evidence of diverticulitis. The appendix is normal. No small bowel distention. No free or loculated intraperitoneal gas or fluid is evident. The distal esophagus, stomach, duodenum are unremarkable. Lack of IV contrast limits assessment of the solid organs. The liver, gallbladder, bile ducts, pancreas, spleen, adrenals, kidneys are all unremarkable. No renal or ureteral calculi, hydronephrosis, or hydroureter. No pelvic mass or adenopathy. Unremarkable bladder. The included lung bases demonstrate extensive interlobular interstitial septal thickening, as well as irregular focal opacities. The heart is markedly enlarged. 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 This appears normal anteriorly, however. Impression: Limited assessment of the GI tract, due to lack of enteric contrast administration No definite acute abdominal or pelvic abnormality Marked cardiomegaly Extensive pulmonary basilar interstitial septal thickening and irregular focal opacities bilaterally. Suspect on the basis of pulmonary edema, given the presence of significant cardiomegaly. 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
[2020-07-26] MEDS ORDERED: D5 1/2NS 1000ml IV ONE (11:00)
[2020-07-26 12:00] VITALS: BP 127/78
--- NOTE | 2020-07-26 15:36 | Internal Med Progress Note ---
Subjective Physician Name Luis Fernando Sow Attending Physician Luis Fernando Sow M.D. Current Medications Medications (Trade) Dose Ordered Sig/Damien Route PRN Reason Start Time Stop Time Status Last Admin Dose Admin Acetaminophen (Tylenol) 650 mg Q4H PRN ORAL Pain Scale (3-5) 07/22/20 05:45 08/21/20 05:44 07/26/20 08:31 Aspirin (Ecotrin) 81 mg DAILY ORAL 07/23/20 09:00 09/06/20 08:59 07/26/20 08:24 Atorvastatin Calcium (Lipitor) 80 mg BEDTIME ORAL 07/22/20 21:00 10/20/20 20:59 07/25/20 20:57 Furosemide (Lasix) 40 mg DAILY IV 07/25/20 09:00 08/24/20 08:59 07/26/20 08:24 Heparin Sodium/ Dextrose 500 ml @ 18.869 mls/ hr ADJUST PER PROTOCOL IV 07/25/20 13:30 08/24/20 13:29 07/25/20 17:41 Lisinopril (ZestriL) 10 mg DAILY ORAL 07/25/20 09:00 08/24/20 08:59 07/26/20 08:25 Metoprolol Tartrate (Lopressor) 100 mg Q12HR ORAL 07/23/20 10:00 10/20/20 20:59 07/26/20 08:25 Ondansetron HCl (Zofran) 4 mg Q6H PRN IVP Nausea & Vomiting 07/22/20 05:45 08/21/20 05:44 07/22/20 06:50 Warfarin Sodium (Coumadin per pharmacy) 1 ea DAILY PRN MISC Per rx protocol 07/24/20 14:15 08/23/20 14:14 Warfarin Sodium (Coumadin) 7.5 mg COUMADIN ORAL 07/26/20 17:00 07/26/20 19:00 Allergies: Coded Allergies: No Known Allergies (Unverified , 07/21/20) Subjective started on lasix lisniopril added EF 35% chart from [facility] reviewed h/o mitral stenosis s/p valvuloplasty CT abd: Impression: Limited assessment of the GI tract, due to lack of enteric contrast administration No definite acute abdominal or pelvic abnormality Marked cardiomegaly Extensive pulmonary basilar interstitial septal thickening and irregular focal opacities bilaterally. Suspect on the basis of pulmonary edema, given the presence of significant cardiomegaly. Infectious etiology is also possible Objective Last Vital Signs Date Time Temp Pulse Resp B/P (MAP) Pulse Ox O2 Delivery O2 Flow Rate FiO2 07/26/20 12:00 81 07/26/20 12:00 97.9 20 127/78 (94) 99 07/26/20 09:00 Room Air Laboratory Tests Test 07/25/20 19:45 07/26/20 07:53 Activated Partial Thromboplast Time 75 SEC (23-33) H 81 SEC (23-33) H Prothrombin Time 15.2 SEC (9.30-11.50) H Prothromb Time International Ratio 1.4 (0.9-1.1) H Sodium Level 140 MMOL/L (136-145) Potassium Level 4.0 MMOL/L (3.5-5.1) Chloride Level 103 MMOL/L (98-107) Carbon Dioxide Level 24 MMOL/L (21-32) Anion Gap 13 mmol/L (5-15) Blood Urea Nitrogen 13 mg/dL (7-18) Creatinine 0.8 MG/DL (0.55-1.30) Estimat Glomerular Filtration Rate > 60 mL/min (>60) Glucose Level 157 MG/DL (74-106) H Calcium Level 9.9 MG/DL (8.5-10.1) Magnesium Level 2.0 MG/DL (1.8-2.4) Pro-B-Type Natriuretic Peptide 2276 pg/mL (0-125) H Intake and Output0 07/25/20 07/26/20 19:00 07:00 Intake Total 444.906 ml 360 ml Balance 444.906 ml 360 ml Intake Oral 360 ml 360 ml IV Total 84.906 ml # Voids 4 3 Objective General appearance: alert, cooperative, no distress, appears stated age Head: Normocephalic, without obvious abnormality, atraumatic Eyes: conjunctivae/corneas clear. PERRL, EOM's intact. Fundi benign Throat: Lips, mucosa, and tongue normal. Teeth and gums normal Neck: supple, symmetrical, trachea midline, no adenopathy, thyroid: not enlarged, symmetric, no tenderness/mass/nodules, no carotid bruit and no JVD Lungs: clear to auscultation bilaterally Heart: tachycardic S1, S2 normal, no murmur, click, rub or gallop Abdomen: soft, non-tender. Bowel sounds normal. No masses, no organomegaly Extremities: extremities normal, atraumatic, no cyanosis or edema Pulses: 2+ and symmetric Skin: Skin color, texture, turgor normal. No rashes or lesions Neurologic: Grossly normal Assessment/Plan Assessment/Plan #Atrial flutter #MONY- improved #abd pain - improved #NSTEMI #h/o mitral stenosis s/p valvuloplasty #HTN #h/o breast cancer #hypokalemia- improved - lasix 40 Iv daily - lisinopril 10mg daily - metop 100mg BID - DC cardizem - asa - statin - echo with EF 35% - cardiology eval - heparin drip - monitor lytes - replete lytes prn - surgery eval for abd pain Luis Fernando Sow M.D. Jul 26, 2020 15:36
--- NOTE | 2020-07-26 15:59 | Cardiac Electrophysiology PN ---
Assessment/Plan Assessment/Plan 1. NSTEMI with troponin of 0.11 and 0.13 in the absence of renal failure. Could be due to atrial flutter with rapid ventricular response. On Aspirin, Lopressor and Lipitor EF 35-40% 2. Atrial fib with RVR. Now on metoprolol 100 q12, heparin and Coumadin per Rx INR today still 1.4 3. Mitral stenosis and S/P Mitral valvuloplasty at [facility] in 08/2017. Echo > No significant MR or MS now 4. CHF EF 35%. On Lopressor 100 po bid, Lisinopril 10 and Lasix 40 iv daily 5. For the patient's abdominal pain, the patient already underwent a CT of the abdomen and pelvis as well as abdominal ultrasound. Further evaluation by GI and Surgery. 6. History of right breast cancers/p Lumpectomy Subjective Subjective Remained in atrial flutter/fib in s. No CP or SOB. Had Mitral Valvuloplasty in 08/2017 and had atrial fib even then at [facility] On heparin and Coumadin per pharmacy Diuresing well on iv Lasix for EF 35% Objective Last 24 Hour Vital Signs Date Time Temp Pulse Resp B/P (MAP) Pulse Ox O2 Delivery O2 Flow Rate FiO2 07/26/20 12:00 81 07/26/20 12:00 97.9 84 20 127/78 (94) 99 07/26/20 09:00 Room Air 07/26/20 08:25 124/82 07/26/20 08:25 102 124/82 07/26/20 08:00 93 07/26/20 08:00 98.2 102 18 124/82 (96) 98 07/26/20 04:00 75 07/26/20 04:00 98.9 85 18 128/85 (99) 97 07/26/20 00:00 99.0 89 18 138/89 (105) 96 07/25/20 23:55 77 07/25/20 21:00 Room Air 07/25/20 20:57 94 140/88 07/25/20 20:00 99.5 94 18 140/88 (105) 97 07/25/20 20:00 88 07/25/20 16:00 98.2 75 18 113/75 (88) 98 07/25/20 16:00 81 Intake and Output 07/25/20 07/26/20 19:00 07:00 Intake Total 444.906 ml 360 ml Balance 444.906 ml 360 ml Intake Oral 360 ml 360 ml IV Total 84.906 ml # Voids 4 3 Laboratory Tests Test 07/25/20 19:45 07/26/20 07:53 Activated Partial Thromboplast Time 75 SEC (23-33) H 81 SEC (23-33) H Prothrombin Time 15.2 SEC (9.30-11.50) H Prothromb Time International Ratio 1.4 (0.9-1.1) H Sodium Level 140 MMOL/L (136-145) Potassium Level 4.0 MMOL/L (3.5-5.1) Chloride Level 103 MMOL/L (98-107) Carbon Dioxide Level 24 MMOL/L (21-32) Anion Gap 13 mmol/L (5-15) Blood Urea Nitrogen 13 mg/dL (7-18) Creatinine 0.8 MG/DL (0.55-1.30) Estimat Glomerular Filtration Rate > 60 mL/min (>60) Glucose Level 157 MG/DL (74-106) H Calcium Level 9.9 MG/DL (8.5-10.1) Magnesium Level 2.0 MG/DL (1.8-2.4) Pro-B-Type Natriuretic Peptide 2276 pg/mL (0-125) H Objective HEAD AND NECK: No JVD. LUNGS: Coarse rhonchi. CARDIOVASCULAR: Regular S1 and S2 with no gallop or murmur. ABDOMEN: Soft. EXTREMITIES: No pitting edema. Phil Richey MD Jul 26, 2020 15:59
[2020-07-26 16:00] VITALS: BP 114/80
[2020-07-26] MEDS ORDERED: Warfarin Sod 5 MG, Warfarin Sod 2.5 MG ORAL SCH ×2 (17:00)
--- NOTE | 2020-07-26 19:09 | NUR ---
NURSE HAND-OFF REPORT: Important Events on Shift:[hep drip rate kept the same, PTT drawn] Patient Status: [FULL CODE] Diet: [Cardiac] Pending Orders: [] Pending Results/Labs:[] Pending MD notification:[] Latest Vital Signs: Temperature 97.2 , Pulse 71 , B/P 114 /80 , Respiratory Rate 18 , O2 SAT 97 , Room Air, O2 Flow Rate . Vital Sign Comment: [] EKG Rhythm: Afib/Aflutter Rhythm change?: N MD Notified?: N - MD Response: Latest He Fall Score: 20 Fall Risk: Low Risk Safety Measures: Call light Within Reach, Bed Alarm , Side Rails Side Rails x2, Bed position Low and Locked. Fall Precautions: Patient Fall Education Report given to [Anjel MADISON].
--- NOTE | 2020-07-26 19:31 | NUR ---
NURSE NOTES: Report received from LOS Serrano. Patient is awake on bed, alert and oriented x 4. bus monitor is in place, shows afib/aflutter with HR of 80's. Patient is ambulatory with steady gait. On cardiac diet, instructed and amenable. On room air, saturating 97-98% with no shortness of breath nor difficulty of breathing reported. IV site is on left forearm g-20 running heparin 16 units/kg/hr (18.869cc/hour) that is patent and intact. Safety measures are in place, bed in lowest and locked position, side rails up x 2, call light button and bedside table within reach, instructed to call for any assistance needed. Will continue plan of care.
[2020-07-26 20:00] VITALS: BP 124/81
[2020-07-26] MEDS: Atorvastatin 80mg tab ORAL SCH (20:21)
--- NOTE | 2020-07-26 20:50 | NUR ---
NURSE NOTES: Noticed bruises on left AC, probably on previous blood drawn but no active bleeding noted. Patient is still on heparin drip running rate at 15.86 cc/hour. Cardiac alvarez still shows afib/aflutter with HR of 80's and no chest pain reported. With scheduled blood test for tomorrow, instructed and amenable. Will follow up the blood test and monitor for increasing size of her bruises.
[2020-07-26] MEDS: Heparin 25,000u/D5W 500ml 500 ML IV SCH (22:21)
[2020-07-27] VITALS: BP 130/86
[2020-07-27 04:00] VITALS: BP 117/74
--- NOTE | 2020-07-27 07:07 | NUR ---
NURSE HAND-OFF REPORT: Important Events on Shift: Patient has been resting well the whole shift. Stated that she had 3 episode of diarrhea, will provide specimen cup and hat to collect a sample. No complaints of nor chest pain. Complaints of headache and tylenol 650 mg was given. Patient Status: Patient is awake on bed in stable condition. Plan of care endorsed. Diet: Cardiac diet Pending Orders: none Pending Results/Labs:AM lab result Pending MD notification:none Latest Vital Signs: Temperature 98.5 , Pulse 69 , B/P 117 /74 , Respiratory Rate 18 , O2 SAT 98 , Room Air, O2 Flow Rate . Vital Sign Comment: stable EKG Rhythm: Afib/Aflutter Rhythm change?: N MD Notified?: N - MD Response: Latest He Fall Score: 20 Fall Risk: Low Risk Safety Measures: Call light Within Reach, Bed Alarm , Side Rails Side Rails x2, Bed position Low and Locked. Fall Precautions: Patient Fall Education Report given to LOS Alicia.
--- NOTE | 2020-07-27 07:12 | NUR ---
NURSE NOTES: Report received from Kelli MADISON. Patient seen on rounds, awake and up in bed eating breakfast, on room air with no signs of distress, no complaints of chest pain. Pt has been Afib/Aflutter on the tele monitor, HR 80's. PIV on left forearm patent and infusing Heparin drip at 16u/kg/hr at a rate of 18.86 ml/hr. No signs of advert bleeding. Pt is continent and ambulatory, reports 3 episodes of diarrhea this morning, will collect specimen per hospital protocol. Bed low and locked, siderails up x2, call light placed within reach and instructed to call nurse for assistance. Will continue to monitor.
[2020-07-27 08:00] VITALS: BP 119/69
[2020-07-27 08:05] LABS: ANION GAP 11 mmol/L (5-15); BLOOD UREA NITROGEN 10 mg/dL (7-18); CALCIUM 9.7 MG/DL (8.5-10.1); CARBON DIOXIDE 25 MMOL/L (21-32); CHLORIDE 103 MMOL/L (98-107); CREATININE 0.9 MG/DL (0.55-1.30); POTASSIUM 3.9 MMOL/L (3.5-5.1); SODIUM 139 MMOL/L (136-145)
[2020-07-27 08:07] LABS: INR 2.2 (0.9-1.1)
[2020-07-27 08:26] LABS: PHOSPHORUS 4.7 MG/DL (2.5-4.9)
[2020-07-27] MEDS: Metoprolol Tartrate 100mg tab ORAL SCH ×2 (08:30→21:15)
[2020-07-27] MEDS: Aspirin EC 81mg tab ORAL SCH (08:30)
[2020-07-27] MEDS: Lisinopril 10mg tab ORAL SCH (08:31)
--- NOTE | 2020-07-27 08:35 | NUR ---
CASE MANAGEMENT:REVIEW 07/27/20 SI: NSTEMI. AFIB/FLUTTER W/RVR. CHF W/EF 35% 97.2 73 18 119/69 98% ON RA PT+22.7 INR+2.2 APTT+113 IS: HEPARIN GTT 13U/KG/HR COUMADIN PO QD IV LASIX QD LISINOPRIL PO QD LOPRESSOR PO Q12 ASA PO QD LIPITOR PO QHS : TELEMETRY STATUS DCP: FROM HOME
--- NOTE | 2020-07-27 08:38 | Internal Med Progress Note ---
Subjective Physician Name Luis Fernando Sow Attending Physician Luis Fernando Sow M.D. Current Medications Medications (Trade) Dose Ordered Sig/Damien Route PRN Reason Start Time Stop Time Status Last Admin Dose Admin Acetaminophen (Tylenol) 650 mg Q4H PRN ORAL Pain Scale (3-5) 07/22/20 05:45 08/21/20 05:44 07/26/20 22:18 Aspirin (Ecotrin) 81 mg DAILY ORAL 07/23/20 09:00 09/06/20 08:59 07/27/20 08:30 Atorvastatin Calcium (Lipitor) 80 mg BEDTIME ORAL 07/22/20 21:00 10/20/20 20:59 07/26/20 20:21 Furosemide (Lasix) 40 mg DAILY IV 07/25/20 09:00 08/24/20 08:59 07/27/20 08:31 Heparin Sodium/ Dextrose 500 ml @ 15.331 mls/ hr ADJUST PER PROTOCOL IV 07/27/20 08:50 08/26/20 08:49 Lisinopril (ZestriL) 10 mg DAILY ORAL 07/25/20 09:00 08/24/20 08:59 07/27/20 08:31 Metoprolol Tartrate (Lopressor) 100 mg Q12HR ORAL 07/23/20 10:00 10/20/20 20:59 07/27/20 08:30 Ondansetron HCl (Zofran) 4 mg Q6H PRN IVP Nausea & Vomiting 07/22/20 05:45 08/21/20 05:44 07/22/20 06:50 Warfarin Sodium (Coumadin per pharmacy) 1 ea DAILY PRN MISC Per rx protocol 07/24/20 14:15 08/23/20 14:14 Allergies: Coded Allergies: No Known Allergies (Unverified , 07/21/20) Subjective started on lasix lisniopril added EF 35% chart from [facility] reviewed h/o mitral stenosis s/p valvuloplasty CT abd: Impression: Limited assessment of the GI tract, due to lack of enteric contrast administration No definite acute abdominal or pelvic abnormality Marked cardiomegaly Extensive pulmonary basilar interstitial septal thickening and irregular focal opacities bilaterally. Suspect on the basis of pulmonary edema, given the presence of significant cardiomegaly. Infectious etiology is also possible Objective Last Vital Signs Date Time Temp Pulse Resp B/P (MAP) Pulse Ox O2 Delivery O2 Flow Rate FiO2 07/27/20 08:31 119/69 07/27/20 08:30 73 07/27/20 08:00 97.2 18 98 07/26/20 21:00 Room Air Laboratory Tests Test 07/27/20 06:30 Prothrombin Time 22.7 SEC (9.30-11.50) H Prothromb Time International Ratio 2.2 (0.9-1.1) H Activated Partial Thromboplast Time 113 SEC (23-33) H Sodium Level 139 MMOL/L (136-145) Potassium Level 3.9 MMOL/L (3.5-5.1) Chloride Level 103 MMOL/L (98-107) Carbon Dioxide Level 25 MMOL/L (21-32) Anion Gap 11 mmol/L (5-15) Blood Urea Nitrogen 10 mg/dL (7-18) Creatinine 0.9 MG/DL (0.55-1.30) Estimat Glomerular Filtration Rate > 60 mL/min (>60) Glucose Level 145 MG/DL (74-106) H Calcium Level 9.7 MG/DL (8.5-10.1) Phosphorus Level 4.7 MG/DL (2.5-4.9) Magnesium Level 2.0 MG/DL (1.8-2.4) Intake and Output 07/26/20 07/27/20 19:00 07:00 Intake Total 586.428 ml 507.559 ml Balance 586.428 ml 507.559 ml Intake Oral 360 ml 300 ml IV Total 226.428 ml 207.559 ml # Voids 3 2 Objective General appearance: alert, cooperative, no distress, appears stated age Head: Normocephalic, without obvious abnormality, atraumatic Eyes: conjunctivae/corneas clear. PERRL, EOM's intact. Fundi benign Throat: Lips, mucosa, and tongue normal. Teeth and gums normal Neck: supple, symmetrical, trachea midline, no adenopathy, thyroid: not enlarged, symmetric, no tenderness/mass/nodules, no carotid bruit and no JVD Lungs: clear to auscultation bilaterally Heart: tachycardic S1, S2 normal, no murmur, click, rub or gallop Abdomen: soft, non-tender. Bowel sounds normal. No masses, no organomegaly Extremities: extremities normal, atraumatic, no cyanosis or edema Pulses: 2+ and symmetric Skin: Skin color, texture, turgor normal. No rashes or lesions Neurologic: Grossly normal Assessment/Plan Assessment/Plan #Atrial flutter #MONY- improved #abd pain - improved #NSTEMI #h/o mitral stenosis s/p valvuloplasty #HTN #h/o breast cancer #hypokalemia- improved - lasix 40 Iv daily - lisinopril 10mg daily - metop 100mg BID - DC cardizem - asa - statin - echo with EF 35% - cardiology eval - heparin drip - monitor lytes - replete lytes prn - surgery eval for abd pain Luis Fernando Sow M.D. Jul 27, 2020 08:38
[2020-07-27] MEDS ORDERED: Heparin 25,000u/D5W 500ml 500 ML IV SCH (08:50)
[2020-07-27 12:00] VITALS: BP 100/75
--- NOTE | 2020-07-27 12:30 | NUR ---
NURSE NOTES: Dr. Richey made rounds, notified of INR 2.2. Received orders to D/C heparin drip and continue with coumadin per pharmacy dosing. Orders noted and carried out. Notified Papa at pharmacy. Timed PT draw cancelled.
--- NOTE | 2020-07-27 12:59 | Cardiac Electrophysiology PN ---
Assessment/Plan Assessment/Plan 1. NSTEMI with troponin of 0.11 and 0.13 in the absence of renal failure. Could be due to atrial flutter with rapid ventricular response. On Aspirin, Lopressor and Lipitor EF 35-40% 2. Atrial fib with RVR. Now on metoprolol 100 q12, heparin and Coumadin per Rx INR today 2.2. DC Heparin 3. Mitral stenosis and S/P Mitral valvuloplasty at [facility] in 08/2017. Echo > No significant MR or MS now 4. CHF EF 35%. On Lopressor 100 po bid, Lisinopril 10 and Lasix 40 iv daily 5. For the patient's abdominal pain, the patient already underwent a CT of the abdomen and pelvis as well as abdominal ultrasound. Further evaluation by GI and Surgery. 6. History of right breast cancers/p Lumpectomy Subjective Subjective Remained in atrial flutter/fib in s. No CP or SOB. Had Mitral Valvuloplasty in 08/2017 and had atrial fib even then at [facility] On heparin and Coumadin per pharmacy. INR OMK now Diuresing well on iv Lasix for EF 35% Objective Last 24 Hour Vital Signs Date Time Temp Pulse Resp B/P (MAP) Pulse Ox O2 Delivery O2 Flow Rate FiO2 07/27/20 12:00 91 07/27/20 09:00 Room Air 07/27/20 08:31 119/69 07/27/20 08:30 73 119/69 07/27/20 08:00 97.2 73 18 119/69 (86) 98 07/27/20 08:00 79 07/27/20 04:00 98.5 69 18 117/74 (88) 98 07/27/20 04:00 77 07/27/20 00:00 97.9 77 18 130/86 (101) 98 07/27/20 00:00 77 07/26/20 21:00 Room Air 07/26/20 20:22 76 124/81 07/26/20 20:00 78 07/26/20 20:00 98.0 76 18 124/81 (95) 96 07/26/20 16:00 97.2 72 18 114/80 (91) 97 07/26/20 16:00 71 Intake and Output 07/26/20 07/27/20 19:00 07:00 Intake Total 586.428 ml 507.559 ml Balance 586.428 ml 507.559 ml Intake Oral 360 ml 300 ml IV Total 226.428 ml 207.559 ml # Voids 3 2 Laboratory Tests Test 07/27/20 06:30 Prothrombin Time 22.7 SEC (9.30-11.50) H Prothromb Time International Ratio 2.2 (0.9-1.1) H Activated Partial Thromboplast Time 113 SEC (23-33) H Sodium Level 139 MMOL/L (136-145) Potassium Level 3.9 MMOL/L (3.5-5.1) Chloride Level 103 MMOL/L (98-107) Carbon Dioxide Level 25 MMOL/L (21-32) Anion Gap 11 mmol/L (5-15) Blood Urea Nitrogen 10 mg/dL (7-18) Creatinine 0.9 MG/DL (0.55-1.30) Estimat Glomerular Filtration Rate > 60 mL/min (>60) Glucose Level 145 MG/DL (74-106) H Calcium Level 9.7 MG/DL (8.5-10.1) Phosphorus Level 4.7 MG/DL (2.5-4.9) Magnesium Level 2.0 MG/DL (1.8-2.4) Objective HEAD AND NECK: No JVD. LUNGS: Coarse rhonchi. CARDIOVASCULAR: Regular S1 and S2 with no gallop or murmur. ABDOMEN: Soft. EXTREMITIES: No pitting edema. Phil Richey MD Jul 27, 2020 12:59
--- NOTE | 2020-07-27 14:12 | NUR ---
INSURANCE CLINCALS AND REVIEW FAXED TO [facility]UL[facility] DELGADO T: [phone] F: [phone]
--- NOTE | 2020-07-27 15:24 | Pulmonology Progress Note ---
Subjective ROS Limited/Unobtainable: No Interval Events: none major reported per nursing HEENT: Repors: no symptoms Respiratory: Reports: no symptoms Cardiovascular: Reports: no symptoms; Denies: chest pain, palpitations Gastrointestinal/Abdominal: Reports: other - RUQ abd pain improved Allergies: Coded Allergies: No Known Allergies (Unverified , 07/21/20) All Systems: reviewed and negative except above Objective Last 24 Hour Vital Signs Date Time Temp Pulse Resp B/P (MAP) Pulse Ox O2 Delivery O2 Flow Rate FiO2 07/27/20 12:00 96.1 91 18 100/75 (83) 97 07/27/20 12:00 91 07/27/20 09:00 Room Air 07/27/20 08:31 119/69 07/27/20 08:30 73 119/69 07/27/20 08:00 97.2 73 18 119/69 (86) 98 07/27/20 08:00 79 07/27/20 04:00 98.5 69 18 117/74 (88) 98 07/27/20 04:00 77 07/27/20 00:00 97.9 77 18 130/86 (101) 98 07/27/20 00:00 77 07/26/20 21:00 Room Air 07/26/20 20:22 76 124/81 07/26/20 20:00 78 07/26/20 20:00 98.0 76 18 124/81 (95) 96 07/26/20 16:00 97.2 72 18 114/80 (91) 97 07/26/20 16:00 71 Intake and Output 07/26/20 07/27/20 19:00 07:00 Intake Total 586.428 ml 507.559 ml Balance 586.428 ml 507.559 ml Intake Oral 360 ml 300 ml IV Total 226.428 ml 207.559 ml # Voids 3 2 HEENT: atraumatic Respiratory: lungs clear Cardiovascular: normal rate Abdomen: tender - RUQ, resolved Laboratory Tests 07/27/20 06:30: Prothrombin Time 22.7H, Prothromb Time International Ratio 2.2H, Activated Partial Thromboplast Time 113H, Sodium Level 139, Potassium Level 3.9, Chloride Level 103, Carbon Dioxide Level 25, Anion Gap 11, Blood Urea Nitrogen 10, Creatinine 0.9, Estimat Glomerular Filtration Rate > 60, Glucose Level 145H, Calcium Level 9.7, Phosphorus Level 4.7, Magnesium Level 2.0 Current Medications Medications (Trade) Dose Ordered Sig/Damien Route PRN Reason Start Time Stop Time Status Last Admin Dose Admin Acetaminophen (Tylenol) 650 mg Q4H PRN ORAL Pain Scale (3-5) 07/22/20 05:45 08/21/20 05:44 07/26/20 22:18 Aspirin (Ecotrin) 81 mg DAILY ORAL 07/23/20 09:00 09/06/20 08:59 07/27/20 08:30 Atorvastatin Calcium (Lipitor) 80 mg BEDTIME ORAL 07/22/20 21:00 10/20/20 20:59 07/26/20 20:21 Furosemide (Lasix) 40 mg DAILY IV 07/25/20 09:00 08/24/20 08:59 07/27/20 08:31 Lisinopril (ZestriL) 10 mg DAILY ORAL 07/25/20 09:00 08/24/20 08:59 07/27/20 08:31 Metoprolol Tartrate (Lopressor) 100 mg Q12HR ORAL 07/23/20 10:00 10/20/20 20:59 07/27/20 08:30 Ondansetron HCl (Zofran) 4 mg Q6H PRN IVP Nausea & Vomiting 07/22/20 05:45 08/21/20 05:44 07/22/20 06:50 Warfarin Sodium (Coumadin per pharmacy) 1 ea DAILY PRN MISC Per rx protocol 07/24/20 14:15 08/23/20 14:14 Warfarin Sodium (Warfarin Sod) 2 mg COUMADIN ORAL 07/27/20 17:00 07/27/20 18:00 Assessment/Plan Assessment/Plan 1. Pulmonary basilar interstitial septal thickening and irregular focal opacities - Suspect pulmonary fibrosis. - Continue oxygen as needed - Recommend outpatient workup for this condition 2. DVT ppx - on heparin PT 22.7, INR 2.2 3. Non-STEMI in the absence of renal failure. 2. Atrial fib with RVR 3. h/o mitral stenosis s/p valvuloplasty 4. CHF EF 35%. -Cardiology following 5. Abd US 07/21/20 No definite acute abdominal or pelvic abnormality The care for this patient was discussed with my supervising physician. Time spent for this case was approximately 31 minutes. Ovidio Sidhu Jul 27, 2020 15:24
[2020-07-27 16:00] VITALS: BP 112/64
[2020-07-27] MEDS ORDERED: Warfarin Sodium 1mg ORAL SCH (17:00)
--- NOTE | 2020-07-27 19:35 | NUR ---
NURSE NOTES: Received report from chris vides. patient on bed, awake and verbally responsive. able to make needs known. on room air sating 96-99%. no sob. denies any pain at the moment. ambulated. iv access on the left forearm saline lock. noted with bruises on the left forearm. per peewee," patient is afib to aflutter with hr <90bpm throughout his shift." adult literacy teacher in placed. reiterated to call and ask for assistance to prevent fall or injury. bed locked and in lowest position. call light and light button within easy reach. bed alarm on. will continue plan of care.
--- NOTE | 2020-07-27 19:41 | NUR ---
NURSE HAND-OFF REPORT: Important Events on Shift: Heparin drip D/C'd Patient Status: Stable Diet: Cardiac Pending Orders: N Pending Results/Labs N Pending MD notification:N Latest Vital Signs: Temperature 96.9 , Pulse 87 , B/P 112 /64 , Respiratory Rate 18 , O2 SAT 99 , Room Air, O2 Flow Rate . Vital Sign Comment: EKG Rhythm: Afib/Aflutter Rhythm change?: N MD Notified?: N - MD Response: Latest He Fall Score: 20 Fall Risk: Low Risk Safety Measures: Call light Within Reach, Bed Alarm , Side Rails Side Rails x2, Bed position Low and Locked. Fall Precautions: Patient Fall Education Report given to Jake/Sagrario MADISON.
[2020-07-27 20:00] VITALS: BP 118/69
[2020-07-27] MEDS: Atorvastatin 80mg tab ORAL SCH (21:15)
[2020-07-28] VITALS: BP 120/72
[2020-07-28 04:00] VITALS: BP 117/70
--- NOTE | 2020-07-28 07:00 | NUR ---
Airline Ticket Agent: Received report from LOS Zabala. Patient observed to be awake, alert, and oriented x4. Seen lying in bed with HOB elevated currently on room air, no s/sx of SOB/Distress, no c/o any discomfort. Patient with IV site located on LFA gauge 20 saline lock, site intact, dry, and patent. Bed placed on lowest and locked, will continue to monitor for any changes in patient's condition.
--- NOTE | 2020-07-28 07:29 | NUR ---
NURSE HAND-OFF: Important Events on Shift: ambulates; Patient Status: stable Diet: cardiac diet Pending Orders: Pending Results/Labs: Pending MD notification: Latest Vital Signs: Temperature 97.9 , Pulse 81 , B/P 117 /70 , Respiratory Rate 18 , O2 SAT 99 , Room Air, O2 Flow Rate . Vital Sign Comment: Latest He Fall Score: 20 Fall Risk: Low Risk Safety Measures: Call light Within Reach, Bed Alarm , Side Rails Side Rails x2, Bed position Low and Locked. Fall Precautions: Patient Fall Education Report given to chris lopez.
[2020-07-28 08:00] VITALS: BP 119/52
[2020-07-28] MEDS: Aspirin EC 81mg tab ORAL SCH (08:34)
[2020-07-28] MEDS: Metoprolol Tartrate 100mg tab ORAL SCH (08:35)
[2020-07-28] MEDS: Lisinopril 10mg tab ORAL SCH (08:35)
--- NOTE | 2020-07-28 10:34 | Surgery Progress Note ---
Surgery Progress Note Subjective Additional Comments no acute events comfortable stable labs noted no bleeding Objective Last 24 Hour Vital Signs Date Time Temp Pulse Resp B/P (MAP) Pulse Ox O2 Delivery O2 Flow Rate FiO2 07/28/20 09:00 Room Air 07/28/20 08:35 119/52 07/28/20 08:35 53 119/52 07/28/20 08:00 98.8 106 18 119/52 (74) 99 07/28/20 08:00 106 07/28/20 04:00 97.9 81 18 117/70 (86) 99 07/28/20 04:00 78 07/28/20 00:00 97.6 82 18 120/72 (88) 98 07/28/20 00:00 69 07/27/20 21:15 86 118/69 07/27/20 21:00 Room Air 07/27/20 20:00 97.9 85 18 118/69 (85) 97 07/27/20 20:00 82 07/27/20 16:00 96.9 87 18 112/64 (80) 99 07/27/20 16:00 87 07/27/20 12:00 96.1 91 18 100/75 (83) 97 07/27/20 12:00 91 I&O Intake and Output 07/27/20 07/28/20 19:00 07:00 Intake Total 300 ml 450 ml Balance 300 ml 450 ml Intake Oral 300 ml 450 ml # Voids 2 3 # Bowel Movements 1 Dressing: saturated Cardiovascular: RSR Respiratory: decreased breath sounds Abdomen: soft, non-tender, present bowel sounds Extremities: no edema, no tenderness, no cyanosis Plan Problems: (1) Abdominal pain Assessment & Plan: Abd pain trop elevated no n/v lft's okay no gallstones gb okay gi track okay okay for diet no acute surgical intervention planned will follow with exam and recs thank you Gallbladder is unremarkable, without stones, wall thickening, nor pericholecystic fluid. Sonographic Gómez's sign is negative. Common bile duct measures 2 mm in diameter. No intrahepatic biliary ductal dilatation. Liver demonstrates normal echogenicity, no focal abnormality. Portal vein and hepatic veins are patent. Pancreas is unremarkable. Spleen is unremarkable. Left kidney measures 10.1 cm in length. Right kidney measures 9.9 cm length. Both kidneys demonstrate normal echogenicity. There is no hydronephrosis. Echogenic foci within the left renal sinus are probably artifactual, as no calculi are demonstrated on recent CT scan. Unremarkable inferior vena cava. Non-aneurysmal abdominal aorta . Impression: Negative for gallstones or dilated bile ducts or other significant abnormalityThere are colonic diverticula. No evidence of diverticulitis. The appendix is normal. No small bowel distention. No free or loculated intraperitoneal gas or fluid is evident. The distal esophagus, stomach, duodenum are unremarkable. Lack of IV contrast limits assessment of the solid organs. The liver, gallbladder, bile ducts, pancreas, spleen, adrenals, kidneys are all unremarkable. No renal or ureteral calculi, hydronephrosis, or hydroureter. No pelvic mass or adenopathy. Unremarkable bladder. The included lung bases demonstrate extensive interlobular interstitial septal thickening, as well as irregular focal opacities. The heart is markedly enlarged. 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 This appears normal anteriorly, however. Impression: Limited assessment of the GI tract, due to lack of enteric contrast administration No definite acute abdominal or pelvic abnormality Marked cardiomegaly Extensive pulmonary basilar interstitial septal thickening and irregular focal opacities bilaterally. Suspect on the basis of pulmonary edema, given the presence of significant cardiomegaly. 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
--- NOTE | 2020-07-28 11:02 | Pulmonology Progress Note ---
Subjective ROS Limited/Unobtainable: No Interval Events: none major reported per nursing HEENT: Repors: no symptoms Respiratory: Reports: no symptoms Cardiovascular: Reports: no symptoms; Denies: chest pain, palpitations Gastrointestinal/Abdominal: Reports: other - RUQ abd pain improved Allergies: Coded Allergies: No Known Allergies (Unverified , 07/21/20) All Systems: reviewed and negative except above Objective Last 24 Hour Vital Signs Date Time Temp Pulse Resp B/P (MAP) Pulse Ox O2 Delivery O2 Flow Rate FiO2 07/28/20 09:00 Room Air 07/28/20 08:35 119/52 07/28/20 08:35 53 119/52 07/28/20 08:00 98.8 106 18 119/52 (74) 99 07/28/20 08:00 106 07/28/20 04:00 97.9 81 18 117/70 (86) 99 07/28/20 04:00 78 07/28/20 00:00 97.6 82 18 120/72 (88) 98 07/28/20 00:00 69 07/27/20 21:15 86 118/69 07/27/20 21:00 Room Air 07/27/20 20:00 97.9 85 18 118/69 (85) 97 07/27/20 20:00 82 07/27/20 16:00 96.9 87 18 112/64 (80) 99 07/27/20 16:00 87 07/27/20 12:00 96.1 91 18 100/75 (83) 97 07/27/20 12:00 91 Intake and Output 07/27/20 07/28/20 19:00 07:00 Intake Total 300 ml 450 ml Balance 300 ml 450 ml Intake Oral 300 ml 450 ml # Voids 2 3 # Bowel Movements 1 HEENT: atraumatic Respiratory: lungs clear Cardiovascular: normal rate Abdomen: tender - RUQ, resolved Current Medications Medications (Trade) Dose Ordered Sig/Damien Route PRN Reason Start Time Stop Time Status Last Admin Dose Admin Acetaminophen (Tylenol) 650 mg Q4H PRN ORAL Pain Scale (3-5) 07/22/20 05:45 08/21/20 05:44 07/28/20 10:14 Aspirin (Ecotrin) 81 mg DAILY ORAL 07/23/20 09:00 09/06/20 08:59 07/28/20 08:34 Atorvastatin Calcium (Lipitor) 80 mg BEDTIME ORAL 07/22/20 21:00 10/20/20 20:59 07/27/20 21:15 Furosemide (Lasix) 40 mg DAILY IV 07/25/20 09:00 08/24/20 08:59 07/28/20 08:35 Lisinopril (ZestriL) 10 mg DAILY ORAL 07/25/20 09:00 08/24/20 08:59 07/28/20 08:35 Metoprolol Tartrate (Lopressor) 100 mg Q12HR ORAL 07/23/20 10:00 10/20/20 20:59 07/28/20 08:35 Ondansetron HCl (Zofran) 4 mg Q6H PRN IVP Nausea & Vomiting 07/22/20 05:45 08/21/20 05:44 07/22/20 06:50 Warfarin Sodium (Coumadin per pharmacy) 1 ea DAILY PRN MISC Per rx protocol 07/24/20 14:15 08/23/20 14:14 Assessment/Plan Assessment/Plan 1. Pulmonary basilar interstitial septal thickening and irregular focal opaciti es - Suspect pulmonary fibrosis. - Continue oxygen as needed - Recommend outpatient workup for this condition 2. DVT ppx - on heparin PT 22.7, INR 2.2 3. Non-STEMI in the absence of renal failure. 2. Atrial fib with RVR 3. h/o mitral stenosis s/p valvuloplasty 4. CHF EF 35%. -Cardiology following 5. Abd pain - Abd US 07/21/20 No definite acute abdominal or pelvic abnormality Medically stable from pulmonary standpoint The care for this patient was discussed with my supervising physician. Time spent for this case was approximately 31 minutes. Ovidio Sidhu Jul 28, 2020 11:02
[2020-07-28 11:36] LABS: APPEARANCE,URINE CLEAR; BILIRUBIN, URINE NEGATIVE (NEGATIVE); COLOR,URINE PALE YELLOW; GLUCOSE, URINE (UA) NEGATIVE (NEGATIVE); KETONES,URINE NEGATIVE (NEGATIVE); LEUKOCYTE ESTERASE ,URINE NEGATIVE (NEGATIVE); NITRITE,URINE NEGATIVE (NEGATIVE); PH,URINE 6.5 (4.5-8.0); PROTEIN,URINE NEGATIVE (NEGATIVE); UROBILINOGEN,URINE NORMAL MG/DL (0.0-1.0)
--- NOTE | 2020-07-28 11:45 | Internal Med Progress Note ---
Subjective Physician Name Luis Fernando Sow Attending Physician Luis Fernando Sow M.D. Current Medications Medications (Trade) Dose Ordered Sig/Damien Route PRN Reason Start Time Stop Time Status Last Admin Dose Admin Acetaminophen (Tylenol) 650 mg Q4H PRN ORAL Pain Scale (3-5) 07/22/20 05:45 08/21/20 05:44 07/28/20 10:14 Aspirin (Ecotrin) 81 mg DAILY ORAL 07/23/20 09:00 09/06/20 08:59 07/28/20 08:34 Atorvastatin Calcium (Lipitor) 80 mg BEDTIME ORAL 07/22/20 21:00 10/20/20 20:59 07/27/20 21:15 Furosemide (Lasix) 40 mg DAILY IV 07/25/20 09:00 08/24/20 08:59 07/28/20 08:35 Lisinopril (ZestriL) 10 mg DAILY ORAL 07/25/20 09:00 08/24/20 08:59 07/28/20 08:35 Metoprolol Tartrate (Lopressor) 100 mg Q12HR ORAL 07/23/20 10:00 10/20/20 20:59 07/28/20 08:35 Ondansetron HCl (Zofran) 4 mg Q6H PRN IVP Nausea & Vomiting 07/22/20 05:45 08/21/20 05:44 07/22/20 06:50 Warfarin Sodium (Coumadin per pharmacy) 1 ea DAILY PRN MISC Per rx protocol 07/24/20 14:15 08/23/20 14:14 Allergies: Coded Allergies: No Known Allergies (Unverified , 07/21/20) Subjective started on lasix lisniopril added EF 35% chart from [facility] reviewed h/o mitral stenosis s/p valvuloplasty CT abd: Impression: Limited assessment of the GI tract, due to lack of enteric contrast administration No definite acute abdominal or pelvic abnormality Marked cardiomegaly Extensive pulmonary basilar interstitial septal thickening and irregular focal opacities bilaterally. Suspect on the basis of pulmonary edema, given the presence of significant cardiomegaly. Infectious etiology is also possible Objective Last Vital Signs Date Time Temp Pulse Resp B/P (MAP) Pulse Ox O2 Delivery O2 Flow Rate FiO2 07/28/20 09:00 Room Air 1/26/21 08:35 119/52 07/28/20 08:35 53 07/28/20 08:00 98.8 18 99 Laboratory Tests Test 07/28/20 11:15 Urine Color Pale yellow Urine Appearance Clear Urine pH 6.5 (4.5-8.0) Urine Specific [place] 1.005 (1.005-1.035) Urine Protein Negative (NEGATIVE) Urine Glucose (UA) Negative (NEGATIVE) Urine Ketones Negative (NEGATIVE) Urine Blood 3+ (NEGATIVE) H Urine Nitrite Negative (NEGATIVE) Urine Bilirubin Negative (NEGATIVE) Urine Urobilinogen Normal MG/DL (0.0-1.0) Urine Leukocyte Esterase Negative (NEGATIVE) Urine RBC Pending Urine WBC Pending Urine Squamous Epithelial Cells Pending Urine Bacteria Pending Intake and Output 07/27/20 07/28/20 19:00 07:00 Intake Total 300 ml 450 ml Balance 300 ml 450 ml Intake Oral 300 ml 450 ml # Voids 2 3 # Bowel Movements 1 Objective General appearance: alert, cooperative, no distress, appears stated age Head: Normocephalic, without obvious abnormality, atraumatic Eyes: conjunctivae/corneas clear. PERRL, EOM's intact. Fundi benign Throat: Lips, mucosa, and tongue normal. Teeth and gums normal Neck: supple, symmetrical, trachea midline, no adenopathy, thyroid: not enlarged, symmetric, no tenderness/mass/nodules, no carotid bruit and no JVD Lungs: clear to auscultation bilaterally Heart: tachycardic S1, S2 normal, no murmur, click, rub or gallop Abdomen: soft, non-tender. Bowel sounds normal. No masses, no organomegaly Extremities: extremities normal, atraumatic, no cyanosis or edema Pulses: 2+ and symmetric Skin: Skin color, texture, turgor normal. No rashes or lesions Neurologic: Grossly normal Assessment/Plan Assessment/Plan #Atrial flutter #MONY- improved #abd pain - improved #NSTEMI #h/o mitral stenosis s/p valvuloplasty #HTN #h/o breast cancer #hypokalemia- improved - lasix 40 Iv daily - lisinopril 10mg daily - metop 100mg BID - DC cardizem - asa - statin - echo with EF 35% - cardiology eval - heparin drip - monitor lytes - replete lytes prn - surgery eval for abd pain Luis Fernando Sow M.D. Jul 28, 2020 11:45
[2020-07-28 12:00] VITALS: BP 110/65
--- NOTE | 2020-07-28 12:03 | Cardiac Electrophysiology PN ---
Assessment/Plan Assessment/Plan 1. NSTEMI with troponin of 0.11 and 0.13 in the absence of renal failure. Could be due to atrial flutter with rapid ventricular response. On Aspirin, Lopressor and Lipitor EF 35-40% 2. Atrial fib with RVR. Now on metoprolol 100 q12, heparin and Coumadin per Rx INR 2.2. Off Heparin 3. Mitral stenosis and S/P Mitral valvuloplasty at [facility] in 08/2017. Echo > No significant MR or MS now 4. CHF EF 35%. On Lopressor 100 po bid, Lisinopril 10 and Lasix 40 iv daily 5. For the patient's abdominal pain, the patient already underwent a CT of the abdomen and pelvis as well as abdominal ultrasound. Fu by GI and Surgery. 6. History of right breast cancers/p Lumpectomy OK to DC from cardiac perspective Subjective Subjective Remained in atrial flutter/fib in 90s. No CP or SOB. Had Mitral Valvuloplasty in 08/2017 and had atrial fib even then at [facility] On Coumadin per pharmacy. INR 2.2 Diuresing well on iv Lasix for EF 35% Objective Last 24 Hour Vital Signs Date Time Temp Pulse Resp B/P (MAP) Pulse Ox O2 Delivery O2 Flow Rate FiO2 07/28/20 09:00 Room Air 07/28/20 08:35 119/52 07/28/20 08:35 53 119/52 07/28/20 08:00 98.8 106 18 119/52 (74) 99 07/28/20 08:00 106 07/28/20 04:00 97.9 81 18 117/70 (86) 99 07/28/20 04:00 78 07/28/20 00:00 97.6 82 18 120/72 (88) 98 07/28/20 00:00 69 07/27/20 21:15 86 118/69 07/27/20 21:00 Room Air 07/27/20 20:00 97.9 85 18 118/69 (85) 97 07/27/20 20:00 82 07/27/20 16:00 96.9 87 18 112/64 (80) 99 07/27/20 16:00 87 Intake and Output 07/27/20 07/28/20 19:00 07:00 Intake Total 300 ml 450 ml Balance 300 ml 450 ml Intake Oral 300 ml 450 ml # Voids 2 3 # Bowel Movements 1 Laboratory Tests Test 07/28/20 11:15 Urine Color Pale yellow Urine Appearance Clear Urine pH 6.5 (4.5-8.0) Urine Specific [place] 1.005 (1.005-1.035) Urine Protein Negative (NEGATIVE) Urine Glucose (UA) Negative (NEGATIVE) Urine Ketones Negative (NEGATIVE) Urine Blood 3+ (NEGATIVE) H Urine Nitrite Negative (NEGATIVE) Urine Bilirubin Negative (NEGATIVE) Urine Urobilinogen Normal MG/DL (0.0-1.0) Urine Leukocyte Esterase Negative (NEGATIVE) Urine RBC Pending Urine WBC Pending Urine Squamous Epithelial Cells Pending Urine Bacteria Pending Objective HEAD AND NECK: No JVD. LUNGS: Coarse rhonchi. CARDIOVASCULAR: Regular S1 and S2 with no gallop or murmur. ABDOMEN: Soft. EXTREMITIES: No pitting edema. Phil Richey MD Jul 28, 2020 12:03
--- NOTE | 2020-07-28 12:21 | NUR ---
NURSE NOTES: Pt received from Guillermina RN. Pt in bed resting, no distress noted. bed low and locked, call light within reach.
--- NOTE | 2020-07-28 12:23 | NUR ---
NURSE HAND-OFF REPORT: Important Events on Shift:N/A Patient Status: Stable Diet: cardiac Pending Orders: n/a Pending Results/Labs:n/a Pending MD notification:n/a Latest Vital Signs: Temperature 99.0 , Pulse 67 , B/P 110 /65 , Respiratory Rate 19 , O2 SAT 97 , Room Air, O2 Flow Rate . Vital Sign Comment: stable EKG Rhythm: Afib/Aflutter Rhythm change?: N MD Notified?: N - MD Response: Latest He Fall Score: 20 Fall Risk: Low Risk Safety Measures: Call light Within Reach, Bed Alarm , Side Rails Side Rails x2, Bed position Low and Locked. Fall Precautions: Patient Fall Education Report given to LOS Chakraborty.
--- NOTE | 2020-07-28 13:38 | NUR ---
CASE MANAGEMENT:REVIEW 07/28/20 SI: NSTEMI. AFIB/FLUTTER W/RVR. CHF W/EF 35% 98.8 106 18 119/52 97% on ra COAGS PENDING AT THIS TIME IS: COUMADIN PO QD IV LASIX QD LISINOPRIL PO QD LOPRESSOR PO Q12 ASA PO QD LIPITOR PO QHS : TELEMETRY STATUS DCP: FROM HOME
[2020-07-28 13:39] LABS: INR 2.4 (0.9-1.1)
[2020-07-28] MEDS ORDERED: LIPITOR80 MG ORAL (13:59)
[2020-07-28] MEDS ORDERED: METOPROLOL TAR100 M1 ORAL (13:59)
[2020-07-28] MEDS ORDERED: ZESTRIL10 M1 ORAL (13:59)
--- NOTE | 2020-07-28 15:56 | NUR ---
NURSE NOTES: Pt discharged home. IV removed, tele box removed, wrist band removed. Pt picked up by brother in private vehicle. belongings signed for. DC instructions and RX given. Taken down with wheelchair.
[2020-07-28] MEDS ORDERED: Warfarin Sodium 1mg ORAL SCH (17:00)
--- NOTE | 2020-07-31 05:08 | Cardiology Report ---
APPROVED REPORT EKG Measurement Heart [id number] <Conclusion> Atrial fibrillation T wave abnormality, consider anterior ischemia Abnormal ECG
--- NOTE | 2020-07-31 05:12 | Cardiology Report ---
APPROVED REPORT EXAM: Two-dimensional and M-mode echocardiogram with Doppler and color Doppler. INDICATION Atrial Fibrillation M-Mode DIMENSIONS IVSd0.7 (0.7-1.1cm)Left Atrium (MM)4.7 (1.6-4.0cm) LVDd5.0 (3.5-5.6cm)Aortic Root2.0 (2.0-3.7cm) PWd0.9 (0.7-1.1cm)Aortic Cusp Exc.1.5 (1.5-2.0cm) IVSs0.9 cmEPSS1.1 (>1.0cm) LVDs3.6 (2.5-4.0cm) PWs1.6 cm <Conclusion> Normal left ventricular chamber size. Global left ventricular hypokinesis. Left ventricular ejection fraction estimated to be 35-40 %. Some echogenic material noted in left ventricle apex. Can not exclude for thrombus. No evidence of left ventricular hypertrophy. No evidence of pericardial effusion. Left atrial size at upper limits of normal. Mild right atrial enlargement. Right ventricular chamber size is within normal limits. Focal aortic valve sclerosis with adequate cusp excursion. Thickened mitral valve leaflets with excursion reduced. Heavy mitral annulus and aortic root calcification. Pulmonic valve not well visualized. Tricuspid valve not well visualized A color flow and spectral Doppler study was performed and revealed: Trace aortic insufficiency. Mild mitral regurgitation. Peak mitral valve diastolic gradient of 21 mmHg and a mean gradient of 6 mmHg Can not determine left ventricular diastolic function by mitral diastolic velocities due to arrthymia. Mild tricuspid regurgitation. Tricuspid systolic velocities suggests peak right ventricular systolic pressure of 32 mmHg Pulmonic regurgitation present.
--- NOTE | 2020-07-31 05:12 | Cardiology Report ---
APPROVED REPORT EKG Measurement Heart [id number] <Conclusion> Atrial flutter with variable AV block Abnormal ECG
--- NOTE | 2020-08-01 14:57 | Discharge Summary ---
Discharge Summary Discharge Summary _ Date of admission: 07/21/2020 Date of discharge: 07/28/[address] Sow History of Present Illness and Brief Hospital Course Ms. Francisco is a 54-year-old female with past medical history of arrhythmia, breast cancer, and aortic stenosis, who presented to the ED for evaluation of 12/10 in severity right-sided abdominal pain and tenderness especially on the right lower ribs x3 days. Patient stated that she had similar symptoms in the past that seemed to come and go. She reported her pain was worse after eating. She reported the pain radiating up to the epigastric area and to her throat. She reported taking Coumadin daily given her history of heart surgery performed 1 year ago. She also reported palpitations. Her initial CBC, CMP, and lipase were unremarkable. Her urinalysis was remarkable for hematuria. Her abdominal ultrasound was unremarkable. Her CT of abdomen pelvis without contrast was unremarkable for acute abdomen. However, it was noted that she had bibasilar interstitial edema. She was given Pepcid, lidocaine and Mylanta, Cardizem, nitroglycerin, and aspirin in the ER and was admitted to the hospital for further management and observation. The abdominal ultrasound was negative for gallstones or dilated bile ducts or other significant abnormality. Abdominal/pelvis CT demonstrated no definite acute abdominal or pelvic abnormality. A marked cardiomegaly was noted. Given her finding of pulmonary basilar interstitial septal thickening and irregular focal opacities, it was suspected that she may have some pulmonary fibrosis. She was instructed to follow-up as an outpatient for further work-up for this condition. She remained stable on room air throughout her hospitalization. She was noted to have atrial fibrillation with RVR and was started on metoprolol, heparin and Coumadin. She reported history of mitral valvuloplasty at [facility] in August 2017 due to mitral stenosis. No significant mitral regurgitation or mitral stenosis was noted on a follow-up echocardiogram. Her left ventricular ejection fraction was estimated to be 35-40 % on echocardiogram. She was started on Lopressor, lisinopril, and Lasix. Given resolution of her abdominal complaints, no acute surgical intervention was planned. She did not complain of any nausea or vomiting and her LFTs were within normal limits. Patient was medically stable for discharge on 07/28/2020 and was discharged home. Consultants: Cardiology Dr. Richey Surgery Dr. Robles Pulmonology Dr. Myers Discharge Condition Improved and stable Final diagnoses NSTEMI Atrial fibrillation with RVR Mitral stenosis, status post mitral valvuloplasty at [facility] in 08/2017 CHF, EF 35 to 40% History of right breast cancer, status post lumpectomy MONY Abdominal pain Hypokalemia I have been assigned to dictate discharge summary for this account. Ovidio Sidhu Aug 01, 2020 14:57
--- NOTE | 2020-08-02 08:33 | NUR ---
INSURANCE DC SUMMARY FAXED TO MAULIK DELGADO T: [phone] F: [phone]
== END 2020-07-28 15:58 | disposition home or self-care (01) | DRG 190 ==
LOC: EMR 15:05 → EDBEDREQSVC 18:43 → EDBEDREQ 18:43 → 2E 19:43 → EDBEDREQSVC 07-22 07:11 → EDBEDREQ 07-22 07:11
DX: I21.4 Non-ST elevation (NSTEMI) myocardial infarction (principal); J84.10 Pulmonary fibrosis, unspecified; I48.92 Unspecified atrial flutter; I48.91 Unspecified atrial fibrillation; E87.6 Hypokalemia; I11.0 Hypertensive heart disease with heart failure; I50.9 Heart failure, unspecified; Z79.01 Long term (current) use of anticoagulants; Z85.3 Personal history of malignant neoplasm of breast; I34.2 Nonrheumatic mitral (valve) stenosis; Z98.890 Other specified postprocedural states
CPT/HCPCS: 36415; 71045; 74176; 76700; 80048; 80053; 80061; 81001; 81003; 82150; 83605; 83690; 83735; 83880; 84100; 84439; 84443; 84484; 85025; 85610; 85651; 85730; 87086; 93005; 93306; 96374; 96375; 99291; J2405; J8499